=== PATIENT | female | born 1970 | race Two or more races ===

== ENCOUNTER 2018-03-04 15:27 | Emergency (ER) | payer OTHER ==
--- NOTE | 2018-03-04 15:34 | PDOC ---
Rapid Medical Evaluation Chief Complaint: Vaginal Bleeding Time Seen by Provider: 03/04/18 15:33 Medical Evaluation: Allergies Allergy/AdvReac Type Severity Reaction Status Date / Time No Known Allergies Allergy Verified 03/04/18 15:31 03/04/18 15:33 47 year old female with fibroids, migraines, RLS, and hypothyroidism presenting with dizziness, reports vaginal bleeding intermittently for 2.5 weeks (2 pads today). Was admitted here in 2014 with hemorrhagic shock requiring vasopressors secondary to bleeding fibroids. Alert, oriented, appears weak. Pale conjunctivae. RRR, S1/S2. Lungs CTAB. V/s unremarkable. EKG, CXR Labs including CBC, CMP, PT/INR, T&S To Main ED for further evaluation.
[2018-03-04 15:38] VITALS: TEMP 98.1; BMI 29.1
[2018-03-04 16:25] LABS: BASO % 1.1 % (0-2.0); EOS % 2.7 % (0-4.5); HEMATOCRIT 38.9 % (32.4-45.2); HEMOGLOBIN 12.6 GM/dL (10.7-15.3); LYMPH % 29.7 % (8-40); MCHC 32.4 g/dl (32.0-36.0); MEAN CELL VOLUME 83.3 fl (80-96); MEAN PLT VOLUME 9.6 fl (7.5-11.1); MONO % 5.4 % (3.8-10.2); NEUT % 61.1 % (42.8-82.8); PLATELET COUNT 341 K/MM3 (134-434); RBC 4.67 M/mm3 (3.60-5.2); RDW 16.6 % (11.6-15.6); WHITE BLOOD COUNT 8.1 K/mm3 (4.0-10.0)
[2018-03-04] MEDS ORDERED: SODIUM CHLORIDE 0.9% 1000 ML INFUS.BAG IV ONE (16:34)
--- NOTE | 2018-03-04 16:42 | PDOC ---
History of Present Illness - General Chief Complaint: Vaginal Bleeding Stated Complaint: DIZZINEESS, VAGINAL BLEEDING Time Seen by Provider: 03/04/18 15:33 History Source: Patient Exam Limitations: No Limitations - History of Present Illness Initial Comments: 03/04/18 16:35 The patient is a 47F with a PMH of uterine fibroids and hypothyroidism who presents to the ER with complaints of vaginal bleeding. The patient states that she began bleedinging interm Past History - Past Medical History Allergies/Adverse Reactions: Allergies Allergy/AdvReac Type Severity Reaction Status Date / Time No Known Allergies Allergy Verified 03/04/18 15:31 Home Medications: Ambulatory Orders Ferrous Sulfate 325 mg PO TID 05/22/15 Pramipexole Di-HCl [Mirapex] 0.5 mg PO BID 05/22/15 Simvastatin [Zocor -] 20 mg PO DAILY 05/22/15 EPINEPHrine (EPI-PEN 0.3MG) [Epipen 0.3MG -] 0.3 mg IM ASDIR 05/26/16 Levothyroxine [Synthroid -] 150 mcg PO DAILY 05/26/16 Loperamide HCl [Imodium -] 2 mg PO Q8H #21 capsule 05/26/16 Loperamide HCl [Imodium -] 2 mg PO Q8H PRN #21 capsule 05/26/16 Ondansetron [Zofran *Odt*] 8 mg SL BID PRN #30 od.tablet 05/26/16 Ondansetron [Zofran *Odt*] 8 mg SL TID PRN #30 od.tablet 05/26/16 Topiramate [Topamax] 50 mg PO BID 05/26/16 metroNIDAZOLE [Flagyl -] 500 mg PO DAILY 05/26/16 Anemia: Yes COPD: No Hypercholesterolemia: Yes Thyroid Disease: Yes (hypo) - Reproductive History (#): 5 Para: 4 Therapeutic (s) & number: No - Immunization History Immunization Up to Date: Yes - Suicide/Smoking/Psychosocial Hx Smoking History: Never smoked Have you smoked in the past 12 months: No Hx Alcohol Use: Yes (occasional) Drug/Substance Use Hx: No Substance Use Type: None *Physical Exam - Vital Signs Last Vital Signs Temp Pulse Resp BP Pulse Ox 98.1 F 74 18 132/84 100 03/04/18 15:32 03/04/18 15:32 03/04/18 15:32 03/04/18 15:32 03/04/18 15:32 Moderate Sedation - Procedure Monitoring Vital Signs: Vital Signs Temp Pulse Resp BP Pulse Ox 98.1 F 74 18 132/84 100 03/04/18 15:32 03/04/18 15:32 03/04/18 15:32 03/04/18 15:32 03/04/18 15:32 ED Treatment Course - LABORATORY CBC & Chemistry Diagram: 03/04/18 16:10 03/04/18 16:10 - ADDITIONAL ORDERS Additional order review: 03/04/18 16:10 RBC 4.67 MCV 83.3 MCHC 32.4 RDW 16.6 H D MPV 9.6 Neutrophils % 61.1 Lymphocytes % 29.7 Monocytes % 5.4 Eosinophils % 2.7 Basophils % 1.1 *DC/Admit/Observation/Transfer Diagnosis at time of Disposition: Fibroid (bleeding) (uterine) Qualifiers: Uterine leiomyoma location: unspecified location Qualified Code(s): D25.9 - Leiomyoma of uterus, unspecified - Discharge Dispostion Disposition: HOME Condition at time of disposition: Stable Decision to Admit order: No - Referrals Referrals: Judith Reyes [Primary Care Provider] - - Patient Instructions Printed Discharge Instructions: Uterine Fibroids Additional Instructions: Please follow up with your primary care physician in 2-3 days. Please follow up with your [employer] tomorrow or Sunday regarding your fibroids. Please return to the ER if you have any signs or symptoms of chest pain, shortness of breath, uncontrollable fever, chills, nausea, vomiting, numbness, tingling, or weakness in any part of your body, changes in vision, or slurred speech. Please return to the ER if symptoms persist, worsen, or new symptoms arise. - Post Discharge Activity
[2018-03-04 16:44] LABS: INR 0.92 (0.82-1.09); PROTHROMBIN TIME (PATIENT) 10.4 SEC (9.7-13.0)
[2018-03-04 17:34] VITALS: BP 116/83; PULSE 64
== END 2018-03-04 17:30 | disposition home or self-care (01) ==
LOC: JER 15:27
DX: D25.9 Leiomyoma of uterus, unspecified (principal); E03.9 Hypothyroidism, unspecified; E78.00 Pure hypercholesterolemia, unspecified; G43.909 Migraine, unspecified, not intractable, without status migrainosus; G25.81 Restless legs syndrome
CPT/HCPCS: 36415; 84703; 85025; 85610; 86850; 86900; 86901; 99282-25; J7030

== ENCOUNTER 2018-12-19 19:59 | Emergency (ER) | payer OTHER ==
[2018-12-19 20:36] VITALS: BMI 31.6
--- NOTE | 2018-12-19 20:37 | PDOC ---
Rapid Medical Evaluation Chief Complaint: Lightheaded Medical Evaluation: Allergies Allergy/AdvReac Type Severity Reaction Status Date / Time No Known Allergies Allergy Verified 03/04/18 15:31 12/19/18 20:32 I have performed a brief in-person evaluation of this patient. The patient presents with a chief complaint of: new onset HTN- today noted 4 readings of BP 150s /90s- her Normal BP 115/70 Pertinent physical exam findings: slow to respond, no neuro deficits I have ordered the following: CBC, CMP, PT/ INR, TsH, T3 The patient will proceed to the ED for further evaluation. 12/19/18 20:33 Discharge Disposition - Diagnosis HTN (hypertension) - Referrals - Patient Instructions - Post Discharge Activity
--- NOTE | 2018-12-19 21:35 | PDOC ---
History of Present Illness - General Chief Complaint: Lightheaded Stated Complaint: BP PROBLEM/BLOOD SUGAR PROBLEM Time Seen by Provider: 12/19/18 21:03 History Source: Patient, Old Records Exam Limitations: No Limitations - History of Present Illness Initial Comments: 12/19/18 21:24 HISTORY OF PRESENT ILLNESS: 48-year-old woman past medical history of migraines , hypothyroidism, diabetes, restless leg syndrome presents emergency department for evaluation of dizziness starting today. Patient reports the dizziness is associated with movement and worsens with change of position. 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 Patient also noted blood pressure to be 159/98 while at work. She denies chest pain, shortness of breath, abdominal pain, nausea, vomiting. Patient does report having 2 episodes of diarrhea on 12/16 and 12/17 but has not had diarrhea since. No recent travel or sick contacts. PAST MEDICAL HISTORY: see HPI SURGICAL HISTORY: Denies ALLERGIES: No known drug allergies REVIEW OF SYSTEMS General/Constitutional: Denies fever or chills. Denies weakness, weight change. HEENT: Denies change in vision. Denies ear pain or discharge. Denies sore throat. Cardiovascular: Denies chest pain or shortness of breath. Respiratory: Denies cough, wheezing, or hemoptysis. Gastrointestinal: Denies nausea, vomiting, diarrhea or constipation. Denies rectal bleeding. Genitourinary: Denies dysuria, frequency, or change in urination. Musculoskeletal: Denies joint or muscle swelling or pain. Denies neck or back pain. Skin and breasts: Denies rash or easy bruising. Neurologic: see HPI Psychiatric: Denies depression or anxiety. Endocrine: Denies increased thirst. Denies abnormal weight change. Hematologic/Lymphatic: Denies anemia, easy bleeding, or history of blood clots. Allergic/Immunologic: Denies hives or skin allergy. Denies latex allergy. PHYSICAL EXAM General Appearance: Well-appearing, appropriately dressed. No apparent distress , no intoxication. HEENT: EOMI, PERRLA, normal ENT inspection, normal voice, TMs normal, pharynx normal. No conjunctival pallor. No photophobia, scleral icterus. Neck: Supple. Trachea midline. No tenderness, rigidity, carotid bruit, stridor , lymphadenopathy, or thyromegaly. Respiratory/Chest: Lungs CTAB. No shortness of breath, chest tenderness, respiratory distress, accessory muscle use. No crackles, rales, rhonchi, stridor , wheezing, dullness Cardiovascular: RRR. S1, S2. No JVD, murmur, bradycardia, tachycardia. Vascular Pulses: Dorsalis-Pedis (R): 2+, Dorsalis-Pedis (L): 2+ Gastrointestinal/Abdominal: Normal bowel sounds. Abdomen soft, non-distended. No tenderness or rebound tenderness. No organomegaly, pulsatile mass, guarding, hernia, hepatomegaly, splenomegaly. Lymphatic: No adenopathy, tenderness. Musculoskeletal/Extremities: Normal inspection. FROM of all extremities, normal capillary refill. Pelvis Stable. No CVA tenderness. No tenderness to extremities, pedal edema, swelling, erythema or deformity. Integumentary: Appropriate color, dry, warm. No cyanosis, erythema, jaundice or rash Neurologic: helmet hat puncher II-XII intact. Fully oriented, alert. Appropriate mood/affect. Motor strength 5/5. No appreciable EOM palsy, facial droop or sensory deficit. Normal finger to nose testing. Gait steady. Past History - Past Medical History Allergies/Adverse Reactions: Allergies Allergy/AdvReac Type Severity Reaction Status Date / Time No Known Allergies Allergy Verified 12/19/18 20:36 Home Medications: Ambulatory Orders Ferrous Sulfate 325 mg PO TID 05/22/15 Pramipexole Di-HCl [Mirapex] 0.5 mg PO BID 05/22/15 Simvastatin [Zocor -] 20 mg PO DAILY 05/22/15 Levothyroxine [Synthroid -] 150 mcg PO DAILY 05/26/16 Topiramate [Topamax] 50 mg PO BID 05/26/16 Meclizine HCl [Antivert -] 25 mg PO QID #28 tablet 12/20/18 Anemia: Yes COPD: No Hypercholesterolemia: Yes Thyroid Disease: Yes (hypo) - Reproductive History (#): 5 Para: 4 Therapeutic (s) & number: No - Immunization History Immunization Up to Date: Yes - Suicide/Smoking/Psychosocial Hx Smoking History: Never smoked Have you smoked in the past 12 months: No Information on smoking cessation initiated: No Hx Alcohol Use: No Drug/Substance Use Hx: No Substance Use Type: None *Physical Exam - Vital Signs Last Vital Signs Temp Pulse Resp BP Pulse Ox 97.3 F L 74 16 156/95 100 12/19/18 20:33 12/19/18 20:33 12/19/18 20:33 12/19/18 20:33 12/19/18 20:33 Moderate Sedation - Procedure Monitoring Vital Signs: Procedure Monitoring Vital Signs Temperature 97.3 F L 12/19/18 20:33 Pulse Rate 74 12/19/18 20:33 Respiratory Rate 16 12/19/18 20:33 Blood Pressure 156/95 12/19/18 20:33 O2 Sat by Pulse Oximetry (%) 100 12/19/18 20:33 Heart Score/ECG Review - History History: Slightly suspicious - Electrocardiogram EKG: Normal - Age Age: 45-65 - Risk Factors Risk Factors Heart Score: Yes Hx Diabetes Based on the list above the patient has:: 1-2 risk factors - Troponin Troponin: </= normal limit - Score Heart Score - Total: 2 - ECG Intrepretation Rhythm: Regular Rhythm - [place]: Normal - ECG Impressions Normal ECG: Yes ED Treatment Course - LABORATORY CBC & Chemistry Diagram: 12/19/18 21:31 12/19/18 21:31 - RADIOLOGY Radiology Studies Ordered: Category Date Time Status HEAD CT WITHOUT CONTRAST [CT] Stat CT Scan 12/19/18 21:22 Ordered Medical Decision Making - Medical Decision Making 12/19/18 21:36 A/P: 48-year-old woman with 1 day of dizziness Differential diagnoses include vertigo, Mnire's, malignancy, ACS, electrolyte abnormalities, infection, tyroid dysfunction, hypoglycemia Labs Urine CTH EKG 12/20/18 03:05 Laboratory testing is notable for BUN of 19. TSH 5.18 which is consistent with patient's diagnosis of hypothyroidism. EKG: Sinus rhythm with rate of 62. Normal intervals present. No ischemic changes noted. CT of the head as read by Dr. Ibarra: No which cranial pathology noted. Patient symptoms have resolved after receiving meclizine. This is likely BPPV. I will discharge patient home with prescription for meclizine and to follow-up with her primary doctor as needed. *DC/Admit/Observation/Transfer Diagnosis at time of Disposition: HTN (hypertension) Qualifiers: Hypertension type: essential hypertension Qualified Code(s): I10 - Essential ( primary) hypertension BPPV (benign paroxysmal positional vertigo) Qualifiers: Laterality: unspecified laterality Qualified Code(s): H81.10 - Benign paroxysmal vertigo, unspecified ear - Discharge Dispostion Disposition: HOME Condition at time of disposition: Fair Decision to Admit order: No - Prescriptions Prescriptions: Meclizine HCl [Antivert -] 25 mg PO QID #28 tablet - Referrals Referrals: Yonis Noonan [Primary Care Provider] - - Patient Instructions Additional Instructions: Take meclizine 25 mg orally 4 times a day as needed. Keep well-hydrated. Eat a well-balanced diet. Follow-up to primary doctor for reevaluation within the next 7 days. Return to emergency department for any new or worsening symptoms. Thank you very much for choosing us to provide your emergent health care needs. - Post Discharge Activity
[2018-12-19 22:12] LABS: URINE APPEARANCE CLOUDY; URINE BILIRUBIN NEGATIVE (<2.0 mg/dL); URINE COLOR YELLOW; URINE GLUCOSE (UA) NEGATIVE (NEGATIVE); URINE KETONE NEGATIVE (NEGATIVE); URINE LEUK ESTERASE NEGATIVE (NEGATIVE); URINE NITRITE NEGATIVE (NEGATIVE); URINE PROTEIN 2+ (NEGATIVE); URINE UROBILINOGEN NEGATIVE mg/dL (0.2-1.0)
[2018-12-19 22:13] LABS: HCG,QUALITATIVE URINE Negative
[2018-12-19 22:15] LABS: EPI CELLS RARE /HPF (FEW); URINE MUCUS RARE
[2018-12-19 22:34] LABS: BASO % 0.6 % (0-2.0); EOS % 4.2 % (0-4.5); HEMATOCRIT 39.9 % (32.4-45.2); HEMOGLOBIN 13.2 GM/dL (10.7-15.3); LYMPH % 29.5 % (8-40); MCH 27.2 pg (25.7-33.7); MEAN CELL VOLUME 82.3 fl (80-96); MEAN PLT VOLUME 9.7 fl (7.5-11.1); MONO % 5.7 % (3.8-10.2); PLATELET COUNT 243 K/MM3 (134-434); RBC 4.85 M/mm3 (3.60-5.2); WHITE BLOOD COUNT 9.5 K/mm3 (4.0-10.0)
[2018-12-20] MEDS ORDERED: MECLIZINE HCL 25 MG TABLET (FP) PO ONE
[2018-12-20] MEDS ORDERED: MECLIZINE HCL 25 MG TABLET (FP) ONE (00:45)
[2018-12-20 02:34] LABS: ALBUMIN 3.8 g/dl (3.4-5.0); ALK PHOS 56 U/L (45-117); ANION GAP 7 MMOL/L (8-16); BILIRUBIN,TOTAL 0.3 mg/dL (0.2-1); BLOOD UREA NITROGEN 19 mg/dL (7-18); CALCIUM 8.9 mg/dL (8.5-10.1); CHLORIDE 107 mmol/L (98-107); CO2 26 mmol/L (21-32); GLUCOSE,RANDOM 77 mg/dL (74-106); SGOT/AST 11 U/L (15-37); SGPT/ALT 19 U/L (13-61); SODIUM 140 mmol/L (136-145); TOT PROT 7.3 g/dl (6.4-8.2)
[2018-12-20 03:56] VITALS: BP 136/78; PULSE 88; TEMP 98.5
--- NOTE | 2018-12-20 14:18 | EKG ---
Test Reason : Blood Pressure : / mmHG Vent. Rate : 062 BPM Atrial Rate : 062 BPM P-R Int : 156 ms QRS Dur : 086 ms QT Int : 430 ms P-R-T Axes : 057 010 051 degrees QTc Int : 436 ms NORMAL SINUS RHYTHM NONSPECIFIC T WAVE ABNORMALITY ABNORMAL ECG WHEN COMPARED WITH ECG OF 22-MAY-2015 14:07, VENT. RATE HAS DECREASED BY 35 BPM Confirmed by DALLAS BLAIR MD ([id number]) on 12/20/2018 2:17:49 PM Referred By: Confirmed By:DALLAS BLAIR MD
== END 2018-12-20 03:57 | disposition home or self-care (01) ==
LOC: JER 19:59
DX: I10 Essential (primary) hypertension (principal); H81.10 Benign paroxysmal vertigo, unspecified ear; E11.9 Type 2 diabetes mellitus without complications; E03.9 Hypothyroidism, unspecified; D64.9 Anemia, unspecified
CPT/HCPCS: 36415; 70450-TC; 80053; 81003; 81015; 82550; 84443; 84484; 84703; 85025; 87086; 93005; 93010; 99282-25

== ENCOUNTER 2019-10-21 05:47 | Emergency (ER) | payer OTHER ==
--- NOTE | 2019-10-21 06:00 | PDOC ---
History of Present Illness - History of Present Illness Initial Comments: 10/21/19 06:00 49 yo F PMH migraines, hypothyroidism, diabetes, restless leg syndrome, presenting with headache. States that she has had a cough for the past 3 weeks, with all of her grandchildren sick at home, not responsive to azithromycin prescribed by her PCP. For the past week, she has had her normal L sided migraines every day, not responding to her topiramate. Here today because she could not sleep due to the headache. Denies CP, SOB, abd pain, fevers/chills, N/V. Endorses L sided migraine without photophobia or phonophobia, 10/10, nonproductive cough, and sinus pressure. Neurologist is Dr. Gagnon. <Ander Guy - Last Filed: 10/21/19 06:23> <Vani Sanders - Last Filed: 10/23/19 01:47> - General Stated Complaint: HEADACHE, COUGH Time Seen by Provider: 10/21/19 05:59 Past History - Past Medical History Anemia: Yes COPD: No Diabetes: Yes Hypercholesterolemia: Yes Thyroid Disease: Yes (hypo) - Reproductive History (#): 5 Para: 4 Therapeutic (s) & number: No - Immunization History Immunization Up to Date: Yes - Psycho Social/Smoking Cessation Hx Smoking History: Never smoked Have you smoked in the past 12 months: No Hx Alcohol Use: No Drug/Substance Use Hx: No Substance Use Type: None <Ander Guy - Last Filed: 10/21/19 06:23> <Vani Sanders - Last Filed: 10/23/19 01:47> - Past Medical History Allergies/Adverse Reactions: Allergies Allergy/AdvReac Type Severity Reaction Status Date / Time No Known Allergies Allergy Verified 10/21/19 06:15 Home Medications: Ambulatory Orders Pramipexole Di-HCl [Mirapex] 0.5 mg PO BID 05/22/15 Simvastatin [Zocor -] 40 mg PO DAILY 05/22/15 Levothyroxine [Synthroid -] 150 mcg PO DAILY 05/26/16 Topiramate [Topamax] 50 mg PO BID 05/26/16 Amlodipine Besylate [Norvasc -] 10 mg PO DAILY 10/21/19 Montelukast Na [Singulair -] 10 mg PO HS 10/21/19 Review of Systems - Review of Systems Comments:: 10/21/19 06:20 GENERAL/CONSTITUTIONAL: No fever or chills. No weakness. HEAD, EYES, EARS, NOSE AND THROAT: No change in vision. No ear pain or discharge. No sore throat. Sinus pressure. CARDIOVASCULAR: No chest pain or shortness of breath. RESPIRATORY: No cough, wheezing, or hemoptysis. GASTROINTESTINAL: No nausea, vomiting, diarrhea or constipation. GENITOURINARY: No dysuria, frequency, or change in urination. MUSCULOSKELETAL: No joint or muscle swelling or pain. No neck or back pain. SKIN: No rash NEUROLOGIC: L sided migraine. No vertigo, loss of consciousness, or change in strength/sensation. ENDOCRINE: No increased thirst. No abnormal weight change. HEMATOLOGIC/LYMPHATIC: No anemia, easy bleeding, or history of blood clots. ALLERGIC/IMMUNOLOGIC: No hives or skin allergy <Ander Guy - Last Filed: 10/21/19 06:23> *Physical Exam - Physical Exam 10/21/19 06:23 Gen: well-developed, well-nourished, in distress Neuro: AAOX4, CN II-XII intact, FTN intact, EOMI, PERRLA, 5/5 strength, SILT HEENT: atraumatic, normocephalic, dry mucous membranes Neck: trachea midline, supple CV: regular rate, regular rhythm, no murmurs, rubs, or gallops Pulm: CTA b/l, no wheezing Abd: soft, non-distended, non-tender MSK: full ROM, intact pulses Extr: no edema, no deformities Skin: warm, dry <Ander Guy - Last Filed: 10/21/19 06:23> - Vital Signs Last Vital Signs Temp Pulse Resp BP Pulse Ox 98.5 F 63 17 108/77 99 10/21/19 10:54 10/21/19 10:54 10/21/19 10:54 10/21/19 10:54 10/21/19 10:54 <Vani Sanders - Last Filed: 10/23/19 01:47> ED Treatment Course - Medications Given in the ED: ED Medications Discontinued Medications Generic Name Dose Route Start Last Admin Trade Name Zoila PRN Reason Stop Dose Admin Acetaminophen 1,000 mg 10/21/19 06:08 10/21/19 06:37 Ofirmev Injection - IVPB 10/21/19 06:09 1,000 mg ONCE ONE Administration Codeine Sulfate 30 mg 10/21/19 06:38 10/21/19 06:51 Codeine Sulfate - PO 10/21/19 06:39 30 mg ONCE ONE Administration Metoclopramide HCl 10 mg 10/21/19 06:14 10/21/19 06:38 Reglan Injection - IVPB 10/21/19 06:15 10 mg ONCE ONE Administration Sodium Chloride 1,000 ml 10/21/19 06:14 10/21/19 06:37 Normal Saline - IV 10/21/19 06:15 1,000 ml ONCE ONE Administration Sodium Chloride 3 ml 10/21/19 06:38 10/21/19 06:51 Normal Saline For Inhalation - IH 10/21/19 06:39 3 ml ONCE ONE Administration <Vani Sanders - Last Filed: 10/23/19 01:47> Medical Decision Making - Medical Decision Making 10/21/19 06:22 Concern for migraine v sinus headache. - CXR, EKG - Ofirmev, 1L NS, Reglan 10mg <Ander Guy - Last Filed: 10/21/19 06:23> Discharge - Discharge Information Problems reviewed: Yes <Ander Guy - Last Filed: 10/21/19 06:23> <Vani Sanders - Last Filed: 10/23/19 01:47> - Discharge Information Clinical Impression/Diagnosis: Hx of migraines, Cough Condition: Improved Disposition: HOME - Follow up/Referral Referrals: Yonis Noonan [Primary Care Provider] - Jovany Landers MD [Staff Physician] - - Patient Discharge Instructions Patient Printed Discharge Instructions: DI for Migraine Additional Instructions: You have been seen in the Emergency Department for your migraine and cough. Your chest X-ray and CT scan of your sinus show no evidence of an acute emergent condition such as a sinus infection or pneumonia. Your migraine improved with medications. Take your migraine medications as prescribed and follow up with your neurologist within 1 week. Also follow up with your primary care doctor this week. Your sinus CT scan does show some non-emergent findings which we have discussed. Follow up with ENT (Ear, nose, throat) within 1-2 weeks. We have given you a referral. Return to the Emergency Department immediately for any new or concerning symptoms including numbness or tingling, vision changes, weakness, difficulty speaking, or vomiting. - Post Discharge Activity Work/Back to School Note: Back to Work
[2019-10-21] MEDS ORDERED: ACETAMINOPHEN 1000 MG/100 ML VIAL (NON FORMULARY) IVPB ONE (06:08)
[2019-10-21] MEDS ORDERED: METOCLOPRAMIDE HCL INJECTION 10 MG/2 ML VIAL IVPB ONE (06:14)
[2019-10-21] MEDS ORDERED: SODIUM CHLORIDE 0.9% 500 ML INFUS.BAG IV ONE (06:14)
[2019-10-21 06:15] VITALS: BMI 32.9
[2019-10-21] MEDS ORDERED: METOCLOPRAMIDE HCL INJECTION 10 MG/2 ML VIAL ONE (06:20)
[2019-10-21] MEDS ORDERED: ACETAMINOPHEN INJECTION 100 ML IVPB ONE (06:20)
--- NOTE | 2019-10-21 06:30 | PDOC ---
Attending Attestation - Resident Resident Name: Ander Guy - ED Attending Attestation I have performed the following: The case was reviewed & discussed with the resident, I agree w/resident's findings & plan - HPI HPI: 10/23/19 01:46 see resident hpi - Physicial Exam PE: 10/23/19 01:47 see resident exam - Medical Decision Making 10/23/19 01:47 49-year-old female with headache Currently awaiting imaging and reevaluation We will sign out to dayshift
[2019-10-21] MEDS ORDERED: CODEINE SO4 30 MG TABLET PO ONE (06:38)
[2019-10-21] MEDS ORDERED: SODIUM CHLORIDE FOR INHALATION 3 ML VIAL.NEB IH ONE (06:38)
--- NOTE | 2019-10-21 07:14 | PDOC ---
*Physical Exam - Vital Signs Last Vital Signs Temp Pulse Resp BP Pulse Ox 98.1 F 66 18 155/93 100 10/21/19 06:06 10/21/19 06:06 10/21/19 06:06 10/21/19 06:06 10/21/19 06:06 ED Treatment Course - Medications Given in the ED: ED Medications Discontinued Medications Generic Name Dose Route Start Last Admin Trade Name Zoila PRN Reason Stop Dose Admin Acetaminophen 1,000 mg 10/21/19 06:08 10/21/19 06:37 Ofirmev Injection - IVPB 10/21/19 06:09 1,000 mg ONCE ONE Administration Codeine Sulfate 30 mg 10/21/19 06:38 10/21/19 06:51 Codeine Sulfate - PO 10/21/19 06:39 30 mg ONCE ONE Administration Metoclopramide HCl 10 mg 10/21/19 06:14 10/21/19 06:38 Reglan Injection - IVPB 10/21/19 06:15 10 mg ONCE ONE Administration Sodium Chloride 1,000 ml 10/21/19 06:14 10/21/19 06:37 Normal Saline - IV 10/21/19 06:15 1,000 ml ONCE ONE Administration Sodium Chloride 3 ml 10/21/19 06:38 10/21/19 06:51 Normal Saline For Inhalation - IH 10/21/19 06:39 3 ml ONCE ONE Administration Medical Decision Making - Medical Decision Making 10/21/19 07:14 Received sign out from Dr Worthington. Pt seen and assessed at bedside. 49yo F hx migraines, hypothyroidism, DM, and restless leg syndrome presenting with daily L-sided migraines x1wk not responding to topiramate, in setting of [id number] unresponsive to azithromycin. No red flags or changes to usual migraine concerning for ICH, stroke, meningitis, or other emergent pathology. Most likely migraine vs sinus headache. Also obtain CXR to r/o PNA. Neurologist Dr Gagnon. -EKG reviewed: NSR, 61bpm, normal intervals, QTc 450ms, normal axis, no e/o acute ischemia, no significant changes compared to 12/19/18 -CXR -CT sinus -Pain management: running ofirmev, IVF, reglan -Dispo: pending w/u and reassessment 10/21/19 09:15 CXR reviewed: no acute chest pathology 10/21/19 10:07 Pt reassessed. States headache resolved s/p meds, starting to return but minimal. CT sinus reviewed - no concerning acute pathology or sinusitis, f/u ENT Discussed results with pt. Will dc home with PCP, Neuro, and ENT f/u. Return precautions given. Pt understands all dc instructions and all questions were answered. Discharge - Discharge Information Problems reviewed: Yes Clinical Impression/Diagnosis: Hx of migraines, Cough Condition: Improved Disposition: HOME - Admission No - Follow up/Referral Referrals: Yonis Noonan [Primary Care Provider] - Jovany Landers MD [Staff Physician] - - Patient Discharge Instructions Patient Printed Discharge Instructions: DI for Migraine Additional Instructions: You have been seen in the Emergency Department for your migraine and cough. Your chest X-ray and CT scan of your sinus show no evidence of an acute emergent condition such as a sinus infection or pneumonia. Your migraine improved with medications. Take your migraine medications as prescribed and follow up with your neurologist within 1 week. Also follow up with your primary care doctor this week. Your sinus CT scan does show some non-emergent findings which we have discussed. Follow up with ENT (Ear, nose, throat) within 1-2 weeks. We have given you a referral. Return to the Emergency Department immediately for any new or concerning symptoms including numbness or tingling, vision changes, weakness, difficulty speaking, or vomiting. - Post Discharge Activity Work/Back to School Note: Back to Work
--- NOTE | 2019-10-21 09:28 | EKG ---
Test Reason : Blood Pressure : / mmHG Vent. Rate : 061 BPM Atrial Rate : 061 BPM P-R Int : 152 ms QRS Dur : 078 ms QT Int : 448 ms P-R-T Axes : 063 010 013 degrees QTc Int : 450 ms NORMAL SINUS RHYTHM NONSPECIFIC T WAVE ABNORMALITY ABNORMAL ECG WHEN COMPARED WITH ECG OF 19-DEC-2018 23:52, NONSPECIFIC T WAVE ABNORMALITY NOW EVIDENT IN INFERIOR LEADS Confirmed by Danny Ewing MD ([id number]) on 10/21/2019 9:28:12 AM Referred By: Confirmed By:Danny Ewing MD
[2019-10-21 10:55] VITALS: BP 108/77; PULSE 63; TEMP 98.5
== END 2019-10-21 10:55 | disposition home or self-care (01) ==
LOC: JER 05:47
PROC: 3E0F7GC Introduction of Other Therapeutic Substance into Respiratory Tract, Via Natural or Artificial Opening (ICD-10-PCS; principal; 2019-10-21)
PROC: 3E033GC Introduction of Other Therapeutic Substance into Peripheral Vein, Percutaneous Approach (ICD-10-PCS; 2019-10-21)
PROC: 3E033NZ Introduction of Analgesics, Hypnotics, Sedatives into Peripheral Vein, Percutaneous Approach (ICD-10-PCS; 2019-10-21)
DX: G43.909 Migraine, unspecified, not intractable, without status migrainosus (principal); E11.9 Type 2 diabetes mellitus without complications; E03.9 Hypothyroidism, unspecified; D64.9 Anemia, unspecified; E78.00 Pure hypercholesterolemia, unspecified
CPT/HCPCS: 70486-TC; 71045-TC-FY; 93005; 93010; 94640; 96374; 96375; 99283-25; J0131

== ENCOUNTER 2019-11-18 17:30 | Emergency (ER) | payer OTHER ==
[2019-11-18 17:52] VITALS: BP 113/70; PULSE 97; TEMP 99.5; BMI 32.4
--- NOTE | 2019-11-18 17:59 | PDOC ---
Rapid Medical Evaluation Medical Evaluation: Allergies Allergy/AdvReac Type Severity Reaction Status Date / Time No Known Allergies Allergy Verified 11/18/19 17:48 Vital Signs Temp Pulse Resp BP Pulse Ox 99.5 F 97 H 18 113/70 98 11/18/19 17:49 11/18/19 17:49 11/18/19 17:49 11/18/19 17:49 11/18/19 17:49 11/18/19 17:51 Pt c/o:myalgia, ear pain, cough, sore throat Pt on brief exam: vss, lcta pt ordered for: none Pt to proceed to the ED Discharge Disposition - Diagnosis Cough, Influenza - Discharge Dispostion Disposition: HOME Condition at time of disposition: Stable - Prescriptions Prescriptions: Guaifenesin AC [Robitussin AC] 10 ml PO Q8H #150 ml MDD 3 Ibuprofen 600 mg PO Q6H #30 tablet Oseltamivir Phosphate [Tamiflu] 75 mg PO BID #10 capsule predniSONE [Deltasone -] 40 mg PO DAILY #8 tablet - Referrals Referrals: Yonis Noonan [Primary Care Provider] - - Patient Instructions Printed Discharge Instructions: DI for Influenza -- Adult Additional Instructions: You have the flu. This is a virus that will get better on its own in approximately 7-10 days. You will most likely have a fever for 7-10 days because of the flu. This is to be expected. Drink plenty of fluids to prevent dehydration and get plenty of rest. Warm tea and cough drops may help your symptoms as well. Take the tamiflu twice a day for 5 days to help reduce the symptoms of the flu. This medication will not cure the flu. Take Motrin as directed for pain and fever. Take all other medications as prescribed. Follow up with your primary care doctor this week Return to the ED for difficulty breathing, shortness of breath, weakness, or if you have any other changes in your symptoms. - Post Discharge Activity Work/School Note: Back to Work
--- NOTE | 2019-11-18 19:08 | PDOC ---
History of Present Illness - General Chief Complaint: Cold Symptoms Stated Complaint: FEVER Time Seen by Provider: 11/18/19 17:59 History Source: Patient Exam Limitations: No Limitations Past History - Travel Traveled outside of the country in the last 30 days: No Close contact w/someone who was outside of country & ill: No - Past Medical History Allergies/Adverse Reactions: Allergies Allergy/AdvReac Type Severity Reaction Status Date / Time No Known Allergies Allergy Verified 11/18/19 17:48 Home Medications: Ambulatory Orders Pramipexole Di-HCl [Mirapex] 0.5 mg PO BID 05/22/15 Simvastatin [Zocor -] 40 mg PO DAILY 05/22/15 Levothyroxine [Synthroid -] 150 mcg PO DAILY 05/26/16 Topiramate [Topamax] 50 mg PO BID 05/26/16 Amlodipine Besylate [Norvasc -] 10 mg PO DAILY 10/21/19 Montelukast Na [Singulair -] 10 mg PO HS 10/21/19 Guaifenesin AC [Robitussin AC] 10 ml PO Q8H #150 ml MDD 3 11/18/19 Ibuprofen 600 mg PO Q6H #30 tablet 11/18/19 Oseltamivir Phosphate [Tamiflu] 75 mg PO BID #10 capsule 11/18/19 predniSONE [Deltasone -] 40 mg PO DAILY #8 tablet 11/18/19 Anemia: Yes COPD: No Diabetes: Yes Hypercholesterolemia: Yes Thyroid Disease: Yes (hypo) - Reproductive History (#): 5 Para: 4 Therapeutic (s) & number: No - Immunization History Immunization Up to Date: Yes - Psycho Social/Smoking Cessation Hx Smoking History: Never smoked Have you smoked in the past 12 months: No Hx Alcohol Use: No Drug/Substance Use Hx: No Substance Use Type: None Review of Systems - Review of Systems Able to Perform ROS?: Yes Comments:: 11/18/19 19:44 CONSTITUTIONAL: Present: Fever, chills, body aches Absent: diaphoresis, generalized weakness, malaise, loss of appetite HEENT: Present: rhinorrhea, nasal congestion, throat pain. Absent: difficulty swallowing, mouth swelling, ear pain, eye pain, visual Changes CARDIOVASCULAR: Absent: chest pain, loss of consciousness, palpitations, irregular heart rate, peripheral edema RESPIRATORY: Present: Cough Absent: shortness of breath, dyspnea with exertion, orthopnea, wheezing, stridor, hemoptysis GASTROINTESTINAL: Absent: abdominal pain, abdominal distension, nausea, vomiting, diarrhea, constipation, melena, hematochezia SKIN: Absent: rash, itching, pallor NEUROLOGIC: Present: headache Absent: focal weakness or paresthesias, dizziness, unsteady gait, seizure, mental status changes, bladder or bowel incontinence Is the patient limited [place] proficient: No *Physical Exam - Vital Signs Last Vital Signs Temp Pulse Resp BP Pulse Ox 99.5 F 97 H 18 113/70 98 11/18/19 17:49 11/18/19 17:49 11/18/19 17:49 11/18/19 17:49 11/18/19 17:49 - Physical Exam 11/20/19 17:45 GENERAL: Well developed, well nourished. Awake and alert. No acute distress. HEENT: Normocephalic, atraumatic. PERRLA, EOMI. No conjunctival pallor. Sclera are non- icteric. Moist mucous membranes. Oropharynx is clear. NECK: Supple. Full ROM. No lymphadenopathy. CARDIOVASCULAR: Regular rate and rhythm. No murmurs, rubs, or gallops. Distal pulses are 2+ and symmetric. PULMONARY: No evidence of respiratory distress. Lungs clear to auscultation bilaterally. No wheezing, rales or rhonchi. ABDOMINAL: Soft. Non-tender. Non-distended. No rebound or guarding. No organomegaly. Normoactive bowel sounds. MUSCULOSKELETAL Normal range of motion at all joints. No bony deformities or tenderness. No CVA tenderness. EXTREMITIES: No cyanosis. No clubbing. No edema. No calf tenderness. SKIN: Warm and dry. Normal capillary refill. No rashes. No jaundice. NEUROLOGICAL: Alert, awake, appropriate. Cranial nerves 2-12 intact. No deficits to light touch and temperature in face, upper extremities and lower extremities. No motor deficits in the in face, upper extremities and lower extremities. Normoreflexic in the upper and lower extremities. Normal speech. Toes are down-going bilaterally. Gait is normal without ataxia. PSYCHIATRIC: Cooperative. Good eye contact. Appropriate mood and affect. Medical Decision Making - Medical Decision Making 11/18/19 19:47 The patient is a 49-year-old female past medical of hypertension, hyperlipidemia, presents to the ER with 2 days of cough, body aches, fevers and headache. She was seen by her primary care today and had normal blood work. She states she was not told if she had the flu or not. She is taking Tylenol at home with some relief of her symptoms. She states her cough is productive with green/yellow mucus. A/P: Flulike symptoms On exam lungs are clear to auscultation bilaterally without wheezes rales or rhonchi. Throat and ears are unremarkable. Patient feels warm to the touch. Likely that she is febrile. Motrin given in the ER. Patient most likely has the flu. Will start the patient on Tamiflu and give Robitussin-AC for the cough. 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 I discussed the physical exam findings, ancillary test results and final diagnoses with the patient. I answered all of the patient's questions. The patient was satisfied with the care received and felt comfortable with the discharge plan and treatment plan. The Patient agrees to follow up with the primary care physician/specialist within 24-72 hours. Return precautions were given. Discharge - Discharge Information Problems reviewed: Yes Clinical Impression/Diagnosis: Cough, Influenza Condition: Stable Disposition: HOME - Admission No - Additional Discharge Information Prescriptions: Guaifenesin AC [Robitussin AC] 10 ml PO Q8H #150 ml MDD 3 Ibuprofen 600 mg PO Q6H #30 tablet Oseltamivir Phosphate [Tamiflu] 75 mg PO BID #10 capsule predniSONE [Deltasone -] 40 mg PO DAILY #8 tablet - Follow up/Referral Referrals: Yonis Noonan [Primary Care Provider] - - Patient Discharge Instructions Patient Printed Discharge Instructions: DI for Influenza -- Adult Additional Instructions: You have the flu. This is a virus that will get better on its own in approximately 7-10 days. You will most likely have a fever for 7-10 days because of the flu. This is to be expected. Drink plenty of fluids to prevent dehydration and get plenty of rest. Warm tea and cough drops may help your symptoms as well. Take the tamiflu twice a day for 5 days to help reduce the symptoms of the flu. This medication will not cure the flu. Take Motrin as directed for pain and fever. Take all other medications as prescribed. Follow up with your primary care doctor this week Return to the ED for difficulty breathing, shortness of breath, weakness, or if you have any other changes in your symptoms. - Post Discharge Activity Work/Back to School Note: Back to Work
[2019-11-18] MEDS ORDERED: DEXAMETHASONE LIQUID 0.5 MG/5 ML PO ONE (19:20)
[2019-11-18] MEDS ORDERED: DEXAMETHASONE SOD PHOSPHATE 10 MG/1 ML VIAL ONE (19:34)
== END 2019-11-18 19:45 | disposition home or self-care (01) ==
LOC: JERFT 17:30
DX: J11.1 Influenza due to unidentified influenza virus with other respiratory manifestations (principal); E11.9 Type 2 diabetes mellitus without complications; E78.00 Pure hypercholesterolemia, unspecified; E03.9 Hypothyroidism, unspecified; Z86.2 Personal history of diseases of the blood and blood-forming organs and certain disorders involving the immune mechanism
CPT/HCPCS: 99281-25

== ENCOUNTER 2020-06-08 19:36 | Inpatient (IN) | payer OTHER ==
--- NOTE | 2020-06-08 20:28 | PDOC ---
Rapid Medical Evaluation Time Seen by Provider: 06/08/20 20:27 Medical Evaluation: Allergies Allergy/AdvReac Type Severity Reaction Status Date / Time No Known Allergies Allergy Verified 11/18/19 17:48 06/08/20 20:27 HPI: 50 year old female lower abdominal pain and vomunious episodes of diarrhea x 2 days 1x/hr. Denies N/V PE: TTP throughout abdomen CTA RRR A/P: Labs UA Imaging differed to provider Pt to precede to ED for further evaluation and treatment.
[2020-06-08] MEDS ORDERED: SODIUM CHLORIDE 1,000 ML IV STA (20:30)
[2020-06-08 22:21] LABS: BASO % 1.1 % (0-2.0); EOS % 2.1 % (0-4.5); HEMATOCRIT 40.7 % (32.4-45.2); HEMOGLOBIN 13.6 GM/dL (10.7-15.3); LYMPH % 14.8 % (8-40); MCH 29.5 pg (25.7-33.7); MCHC 33.4 g/dl (32.0-36.0); MEAN CELL VOLUME 88.5 fl (80-96); MEAN PLT VOLUME 10.3 fl (7.5-11.1); MONO % 6.4 % (3.8-10.2); NEUT % 75.6 % (42.8-82.8); PLATELET COUNT 225 K/MM3 (134-434); WHITE BLOOD COUNT 9.9 K/mm3 (4.0-10.0)
[2020-06-08] MEDS ORDERED: ACETAMINOPHEN 1000 MG/100 ML VIAL (NON FORMULARY) IVPB ONE (22:22)
[2020-06-08] MEDS ORDERED: FAMOTIDINE 20 MG/50 ML IVPB 20 MG/50 ML MG IVPB ONE ×2 (22:22→23:44)
[2020-06-08 22:31] LABS: INR 0.92 (0.83-1.09); PROTHROMBIN TIME (PATIENT) 10.8 SEC (9.7-13.0)
[2020-06-08] MEDS ORDERED: ACETAMINOPHEN INJECTION 100 ML IVPB ONE ×2 (22:36→23:43)
[2020-06-08 22:51] LABS: ALBUMIN 3.5 g/dl (3.4-5.0); BILIRUBIN,TOTAL 0.3 mg/dL (0.2-1); BLOOD UREA NITROGEN 20.6 mg/dL (7-18); CALCIUM 8.6 mg/dL (8.5-10.1); CREATININE 1.1 mg/dL (0.55-1.3); TOT PROT 7.5 g/dl (6.4-8.2)
--- NOTE | 2020-06-08 23:19 | PDOC ---
Documentation entered by Kendra Shay SCRIBE, acting as scribe for Madison Boateng MD. Madison Boateng MD: This documentation has been prepared by the Jaspal bingham Xhesika, SCRIBE, under my direction and personally reviewed by me in its entirety. I confirm that the documentation accurately reflects all work, treatment, procedures, and medical decision making performed by me. Attending Attestation - Resident Resident Name: JavanAgustin - ED Attending Attestation I have performed the following: I have examined & evaluated the patient, The case was reviewed & discussed with the resident, I agree w/resident's findings & plan, Exceptions are as noted - HPI HPI: 06/08/20 22:34 The patient is a 50y/o F with a pmh of HTN and HLD who presents to the ED for 2 days of fever, diffuse crampy abdominal pain, and 10/10 epigastric pain. Pt reports multiple episodes of watery diarrhea. Pt reports Tmax of 100.2 at home. Pt denies taking medication at home for pain relief. Pt denies any recent travel or sick contact. Denies recent antibiotic use or camping, stream drinking, or any other infectious diarrhea risk factors. Pt denies chest pain, SOB, headache, dizziness. Denies cough, N/V. Denies any URI symptoms. Allergies: NKDA 06/08/20 23:16 - Physicial Exam PE: 06/08/20 23:17 GENERAL: nontoxic but a bit uncomfortable-appearing, A/Ox4, answers questions appropriately, pleasant, obese HEENT: PERRLA, EOMI, moist mucous membranes NECK/BACK: no midline ttp, no spinal step-off or deformity, no hematoma, full ROM, neck supple CARDIOVASCULAR: regular rate/rhythm, no MGR, strong peripheral pulses, capillary refill <2 seconds, extremities wwp, no edema LUNGS/RESPIRATORY: no respiratory distress, CTAB GI/ABDOMEN: symmetric [id number], a bit hyperactive BS, soft, mild diffuse ttp, no midline pulsatile masses : no CVA tenderness MSK/EXTREMITIES: no muscle atrophy, no acute deformity SKIN: warm and dry, no pallor, no jaundice, no rash, no pathologic-appearing b ruising, no skin breakdown, no cuts, no lesions NEUROLOGICAL: GCS 15, CN II-XII grossly intact, 5/5 strength proximally and distally, no facial droop - Medical Decision Making 06/08/20 23:18 50YOF p/w diarrhea and diffuse abdominal pain. Initial Vital Signs Temp Pulse Resp BP Pulse Ox 100.0 F H 93 H 20 170/98 99 06/08/20 20:40 06/08/20 20:40 06/08/20 20:40 06/08/20 20:40 06/08/20 20:40 Most likely gastroenteritis, possible colitis/diverticulitis, cholecystitis or choledocholithiasis or other biliary pathology, appendicitis, gastritis, pancrea titis, PUD, UTI, etc. Provider Orders Category Date Time Status ABDOMEN & PELVIS CT WITH CONTR [CT] Stat CT Scan 06/09/20 00:10 Completed ELECTROCARDIOGRAM [CARD] Stat Cardiology 06/09/20 04:08 Completed EKG needed NOW Care 06/09/20 04:09 Completed CARDIAC PROFILE ([facility]) Stat Lab 06/09/20 04:27 Completed CBC WITH DIFFERENTIAL Stat Lab 06/08/20 22:00 Completed COMP METABOLIC PANEL Stat Lab 06/08/20 22:00 Completed LACTIC ACID Stat Lab 06/09/20 04:25 Completed LIPASE Stat Lab 06/08/20 22:00 Completed PT/INR (PROTHROMBIN TIME) Stat Lab 06/08/20 22:00 Completed THYROID STIMULATING HORMONE Stat Lab 06/09/20 04:27 Completed THYROXINE (T4) Stat Lab 06/09/20 04:27 Completed UA ([facility]) ONLY Stat Lab 06/08/20 21:31 Completed UA ([facility]) ONLY Stat Lab 06/09/20 09:06 Completed Acetaminophen Injection [Ofirmev Injection -] Medication 06/08/20 22:22 Discontinued 1,000 mg IVPB ONCE ONE Acetaminophen Injection [Ofirmev Injection -] 100 ml Medication 06/08/20 22:36 Discontinued IVPB UD Acetaminophen Injection [Ofirmev Injection -] 100 ml Medication 06/08/20 23:43 Discontinued IVPB UD Ceftriaxone [Rocephin -] Medication 06/09/20 05:39 Discontinued 1 gm .ROUTE .STK-MED ONE Ceftriaxone [Rocephin -] 1 gm Medication 06/09/20 05:36 Discontinued Dextrose 5%-Water - [D5w -] 100 ml IVPB ONCE Famotidine 20 mg/50 ml Ivpb [Pepcid 20 mg Premixed Ivpb Medication 06/08/20 22:22 Discontinued -] 20 mg in 50 ml IVPB ONCE Famotidine 20 mg/50 ml Ivpb [Pepcid 20 mg Premixed Ivpb Medication 06/08/20 23:44 Discontinued -] 20 mg in 50 ml IVPB UD Morphine Injection - Medication 06/09/20 04:07 Discontinued 4 mg IM ONCE ONE Morphine Sulfate Medication 06/09/20 04:30 Discontinued 4 mg .ROUTE .STK-MED ONE Sodium Chloride [Normal Saline -] 1,000 ml Medication 06/08/20 20:30 Discontinued IV ASDIR Sodium Chloride [Normal Saline -] 1,000 ml Medication 06/09/20 02:21 Discontinued IV ASDIR URINE CULTURE Stat Micro 06/08/20 21:31 Completed IV Insert NOW Phy Order 06/08/20 20:30 Completed Medications Discontinued Medications Generic Name Dose Route Start Last Admin Trade Name Freq PRN Reason Stop Dose Admin Acetaminophen 1,000 mg 06/08/20 22:22 06/08/20 23:47 Ofirmev Injection - IVPB 06/08/20 22:23 1,000 mg ONCE ONE Administration Acetaminophen 1,000 mg 06/09/20 07:45 06/09/20 07:57 Ofirmev Injection - IVPB 06/09/20 07:46 1,000 mg ONCE ONE Administration Acetaminophen 650 mg 06/09/20 08:27 06/09/20 21:31 Tylenol - PO 650 mg Q4H PRN Administration PAIN LEVEL 4 - 6 Atorvastatin Calcium 20 mg 06/09/20 22:00 06/10/20 22:37 Lipitor - PO 20 mg HS RENZO Administration Azithromycin 500 mg 06/09/20 11:36 06/09/20 11:52 Zithromax - PO 06/09/20 11:37 500 mg ONCE ONE Administration Azithromycin Confirm 06/09/20 11:44 Zithromax - Administered 06/09/20 11:45 Dose 500 mg .ROUTE .STK-MED ONE Ceftriaxone Sodium Confirm 06/09/20 05:39 Rocephin - Administered 06/09/20 05:40 Dose 1 gm .ROUTE .STK-MED ONE Heparin Sodium (Porcine) 5,000 unit 06/09/20 10:00 06/09/20 10:10 Heparin - SQ 5,000 unit Q8H-IV RENZO Administration Heparin Sodium (Porcine) Confirm 06/09/20 10:09 Heparin - Administered 06/09/20 10:10 Dose 5,000 unit .ROUTE .STK-MED ONE Heparin Sodium (Porcine) 5,000 unit 06/09/20 14:00 06/11/20 15:07 Heparin - SQ Not Given TID RENZO Heparin Sodium (Porcine) Confirm 06/09/20 14:10 Heparin - Administered 06/09/20 14:11 Dose 5,000 unit .ROUTE .STK-MED ONE Sodium Chloride 1,000 mls @ 1,000 mls/hr 06/08/20 20:30 06/08/20 22:31 Normal Saline - IV 06/08/20 21:29 1,000 mls/hr ASDIR STA Administration Famotidine/Sodium Chloride 20 mg in 50 mls @ 100 mls/hr 06/08/20 22:22 06/08/20 23:47 Pepcid 20 Mg Premixed Ivpb - IVPB 06/08/20 22:51 100 mls/hr ONCE ONE Administration Acetaminophen Confirm 06/08/20 22:36 Ofirmev Injection - Administered 06/08/20 22:37 Dose 100 mls @ ud IVPB .STK-MED ONE Acetaminophen Confirm 06/08/20 23:43 Ofirmev Injection - Administered 06/08/20 23:44 Dose 100 mls @ ud IVPB .STK-MED ONE Famotidine/Sodium Chloride Confirm 06/08/20 23:44 Pepcid 20 Mg Premixed Ivpb - Administered 06/08/20 23:45 Dose 20 mg in 50 mls @ ud IVPB .STK-MED ONE Sodium Chloride 1,000 mls @ 1,000 mls/hr 06/09/20 02:21 06/09/20 03:07 Normal Saline - IV 06/09/20 03:20 1,000 mls/hr ASDIR STA Administration Ceftriaxone Sodium 1 gm/ 100 mls @ 200 mls/hr 06/09/20 05:36 06/09/20 05:40 Dextrose IVPB 06/09/20 06:05 200 mls/hr ONCE ONE Administration Sodium Chloride 1,000 mls @ 75 mls/hr 06/09/20 08:30 06/09/20 08:38 Normal Saline - IV 06/11/20 21:49 75 mls/hr ASDIR RENZO Administration Azithromycin 500 mg in 250 mls @ 250 mls/hr 06/09/20 11:35 06/09/20 12:39 Zithromax 500mg Ivpb (Pre-Docked) IVPB 06/09/20 12:34 Not Given ONCE ONE Sodium Chloride 1,000 mls @ 100 mls/hr 06/09/20 12:57 06/10/20 13:00 Normal Saline - IV 06/10/20 18:29 Not Given ASDIR RENZO Metronidazole 500 mg in 100 mls @ 100 mls/hr 06/09/20 18:00 06/11/20 09:29 Flagyl 500mg Premixed Ivpb - IVPB 100 mls/hr Q8H-IV RENZO Administration Metronidazole Confirm 06/09/20 17:55 Flagyl 500mg Premixed Ivpb - Administered 06/09/20 17:56 Dose 500 mg in 100 mls @ ud IVPB .STK-MED ONE Levofloxacin 500 mg 06/10/20 06:00 06/11/20 06:15 Levaquin - PO 500 mg DAILY@0600 RENZO Administration Levothyroxine Sodium 100 mcg/ 175 mcg 06/10/20 07:00 06/11/20 06:14 Levothyroxine Sodium 75 mcg PO 175 mcg DAILY@0700 RENZO Administration Levothyroxine Sodium Confirm 06/10/20 06:20 Synthroid - Administered 06/10/20 06:21 Dose 100 mcg .ROUTE .STK-MED ONE Levothyroxine Sodium Confirm 06/10/20 06:20 Synthroid - Administered 06/10/20 06:21 Dose 75 mcg .ROUTE .STK-MED ONE Levothyroxine Sodium Confirm 06/11/20 05:54 Synthroid - Administered 06/11/20 05:55 Dose 100 mcg .ROUTE .STK-MED ONE Levothyroxine Sodium Confirm 06/11/20 05:54 Synthroid - Administered 06/11/20 05:55 Dose 75 mcg .ROUTE .STK-MED ONE Morphine Sulfate 4 mg 06/09/20 04:07 06/09/20 04:32 Morphine Injection - IM 06/09/20 04:08 4 mg ONCE ONE Administration Morphine Sulfate Confirm 06/09/20 04:30 Morphine Sulfate Administered 06/09/20 04:31 Dose 4 mg .ROUTE .STK-MED ONE Nitrofurantoin Macrocrystals 100 mg 06/11/20 12:30 06/11/20 14:09 Macrodantin - PO 06/11/20 12:31 Not Given ONCE ONE Nitrofurantoin Macrocrystals 50 mg 06/11/20 18:00 Macrodantin - PO Q6HPO RENZO Pantoprazole Sodium 40 mg 06/09/20 10:00 06/11/20 09:29 Protonix Iv IVPUSH 40 mg DAILY RENZO Administration Pantoprazole Sodium Confirm 06/09/20 10:09 Protonix Iv Administered 06/09/20 10:10 Dose 40 mg .ROUTE .STK-MED ONE Pramipexole Dihydrochloride 1 mg 06/09/20 22:00 06/10/20 22:37 Mirapex - PO 1 mg HS RENZO Administration Topiramate 50 mg 06/09/20 10:00 06/11/20 09:29 Topamax - PO 50 mg BID RENZO Administration Topiramate Confirm 06/09/20 10:09 Topamax - Administered 06/09/20 10:10 Dose 50 mg .ROUTE .STK-MED ONE Microbiology Tests 06/09/20 04:00 Urine Culture - Final Urine - Urine Clean Catch Escherichia Coli Lab Results WBC 9.9 K/mm3 (4.0-10.0) 06/08/20 22:00 RBC 4.60 M/mm3 (3.60-5.2) 06/08/20 22:00 Hgb 13.6 GM/dL (10.7-15.3) 06/08/20 22:00 Hct 40.7 % (32.4-45.2) 06/08/20 22:00 MCV 88.5 fl (80-96) 06/08/20 22:00 MCH 29.5 pg (25.7-33.7) 06/08/20 22:00 MCHC 33.4 g/dl (32.0-36.0) 06/08/20 22:00 RDW 14.0 % (11.6-15.6) D 06/08/20 22:00 Plt Count 225 K/MM3 (134-434) 06/08/20 22:00 MPV 10.3 fl (7.5-11.1) 06/08/20 22:00 Absolute Neuts (auto) 7.5 K/mm3 (1.5-8.0) 06/08/20 22:00 Neutrophils % 75.6 % (42.8-82.8) D 06/08/20 22:00 Lymphocytes % 14.8 % (8-40) D 06/08/20 22:00 Monocytes % 6.4 % (3.8-10.2) 06/08/20 22:00 Eosinophils % 2.1 % (0-4.5) 06/08/20 22:00 Basophils % 1.1 % (0-2.0) 06/08/20 22:00 Nucleated RBC % 0 % (0-0) 06/08/20 22:00 PT with INR 10.80 SEC (9.7-13.0) 06/08/20 22:00 INR 0.92 (0.83-1.09) 06/08/20 22:00 Sodium 140 mmol/L (136-145) 06/08/20 22:00 Potassium 4.0 mmol/L (3.5-5.1) 06/08/20 22:00 Chloride 108 mmol/L (98-107) H 06/08/20 22:00 Carbon Dioxide 24 mmol/L (21-32) 06/08/20 22:00 Anion Gap 8 MMOL/L (8-16) 06/08/20 22:00 BUN 20.6 mg/dL (7-18) H 06/08/20 22:00 Creatinine 1.1 mg/dL (0.55-1.3) 06/08/20 22:00 Est GFR (CKD-EPI)AfAm 66.85 06/08/20 22:00 Est GFR (CKD-EPI)NonAf 57.68 06/08/20 22:00 Random Glucose 90 mg/dL (74-106) 06/08/20 22:00 Lactic Acid 1.8 mmol/L (0.4-2.0) 06/09/20 04:25 Calcium 8.6 mg/dL (8.5-10.1) 06/08/20 22:00 Total Bilirubin 0.3 mg/dL (0.2-1) 06/08/20 22:00 AST 17 U/L (15-37) 06/08/20 22:00 ALT 26 U/L (13-61) 06/08/20 22:00 Alkaline Phosphatase 76 U/L (45-117) 06/08/20 22:00 Creatine Kinase 91 U/L (26-192) 06/09/20 04:27 Troponin I < 0.02 ng/ml (0.00-0.05) 06/09/20 04:27 Total Protein 7.5 g/dl (6.4-8.2) 06/08/20 22:00 Albumin 3.5 g/dl (3.4-5.0) 06/08/20 22:00 Lipase 314 U/L (73-393) 06/08/20 22:00 TSH 5.17 uIU/ml (0.358-3.74) H 06/09/20 04:27 Thyroxine (T4) 9.4 ug/dl (4.5-13.9) 06/09/20 04:27 Urine Color Yellow 06/09/20 04:00 Urine Appearance Clear 06/09/20 04:00 Urine pH 6.0 (5.0-8.0) 06/09/20 04:00 Ur Specific [place] 1.028 (1.010-1.035) 06/09/20 04:00 Urine Protein 2+ (NEGATIVE) H 06/09/20 04:00 Urine Glucose (UA) Negative (NEGATIVE) 06/09/20 04:00 Urine Ketones Negative (NEGATIVE) 06/09/20 04:00 Urine Blood Trace (NEGATIVE) 06/09/20 04:00 Urine Nitrite Positive (NEGATIVE) H 06/09/20 04:00 Urine Bilirubin Negative (NEGATIVE) 06/09/20 04:00 Urine Urobilinogen 0.2 mg/dL (0.2-1.0) 06/09/20 04:00 Ur Leukocyte Esterase Negative (NEGATIVE) 06/09/20 04:00 Urine WBC (Auto) 8 /uL (0-25.8) 06/09/20 04:00 Urine RBC (Auto) 4 /uL (0-23.9) 06/09/20 04:00 Urine Casts (Auto) 0 /uL (0-3.1) 06/09/20 04:00 U Epithel Cells (Auto) 8 /uL (0-25.1) 06/09/20 04:00 Urine Bacteria (Auto) >9,000 /uL (0-1359) 06/09/20 04:00 Patient with intractable abdominal pain despite medications is pending CT abdomen/pelvis and signed out to night team at the end of my shift. Growing concern for infectious etiology given that she has not improved with medications, had low-grade fever. May require admission for intractable pain and further tx. CT/ABDOMEN PELVIS CT WITH CONTR HISTORY PROVIDED: Abdominal pain TECHNIQUE: Sequential axial images were obtained from the domes of the diaphragm through the symphysis pubis following the administration of intravenous contrast material. The liver is enlarged measuring 21.3 cm in craniocaudad dimension. It is hypodense in texture consistent with diffuse fatty infiltration. No mass lesions are identified within the liver. The spleen, pancreas, adrenal glands and left kidney demonstrate no significant abnormalities. There is malrotation of the right kidney with no evidence of hydronephrosis or obstructive uropathy. There is a 1.8 cm left renal cyst. The gallbladder is clear. There is no evidence of intra-abdominal or retroperitoneal lymphadenopathy or fluid collections. There is no evidence of pneumoperitoneum, bowel obstruction or intra-abdominal abscess. There is thickening and irregularity of the right colon, as well the terminal ileum. This appearance is suspicious for Crohn's disease. Additional etiologies for ileitis/colitis cannot be ex cluded. Clinical correlation is advised. Examination of the pelvis demonstrates no evidence of pelvic masses, fluid collections or lymphadenopathy. The uterus has been removed. There is no evidence of acute bony pathology. IMPRESSION: 1. Hepatomegaly with diffuse fatty infiltration of the liver. 2. 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 3. Thickening and irregularity of the right colon and terminal ileum suspicious for Crohn's disease. Clinical correlation and follow-up recommended. Please see above discussion. Discharge - Discharge Information Problems reviewed: Yes Clinical Impression/Diagnosis: Abdominal pain, Ileitis, terminal, Colitis, UTI (urinary tract infection) Diarrhea Qualifiers: Diarrhea type: unspecified type Qualified Code(s): R19.7 - Diarrhea, unspecified Condition: Stable Disposition: HOME - Admission No - Follow up/Referral - Patient Discharge Instructions - Post Discharge Activity
--- NOTE | 2020-06-08 23:24 | PDOC ---
History of Present Illness - General Chief Complaint: Diarrhea Stated Complaint: FEVER/DIARRHEA/ABD PAIN Time Seen by Provider: 06/08/20 20:27 - History of Present Illness Initial Comments: 06/08/20 23:17 HPI: 50 y/o F with hx of HTN and HLD not on any meds presenting with fever, diarrhea and abd pain x3-4days. She had several shots and then later the symptoms began. First had loose stools then had watery stools 10x/day. Crampy abd pain primarily epigastric but with diffuse pain as well. no radiation. 07/24. Did not try meds. No alleviating or worsening factors.Denies sick contactsd, n/v, chest pain, SOB, hematuria, dysuria. PMHx: as noted above ROS: as noted SHx: Denies tobacco use; +alcohol use; no rec drugs Allergies: NKDA ROS: GENERAL/CONSTITUTIONAL: No fever or chills. No weakness. HEAD, EYES, EARS, NOSE AND THROAT: No change in vision. No ear pain or discharge. No sore throat. CARDIOVASCULAR: No chest pain or shortness of breath RESPIRATORY: No cough, wheezing, or hemoptysis. GASTROINTESTINAL: +diarrhea; No nausea, vomiting, or constipation. GENITOURINARY: No dysuria, frequency, or change in urination. MUSCULOSKELETAL: No joint or muscle swelling or pain. No neck or back pain. SKIN: No rash NEUROLOGIC: No headache, vertigo, loss of consciousness, or change in strength/sensation. ENDOCRINE: No increased thirst. No abnormal weight change HEMATOLOGIC/LYMPHATIC: No anemia, easy bleeding, or history of blood clots. ALLERGIC/IMMUNOLOGIC: No hives or skin allergy. PE: GENERAL: Awake, alert, and fully oriented, no acute distress HEAD: No signs of trauma, normocephalic, atraumatic EYES: EOMI, sclera anicteric, conjunctiva clear ENT: Auricles normal inspection, hearing grossly normal, nares patent, oropharynx clear without exudates. Moist mucosa NECK: Normal ROM, no lymphadenopathy LUNGS: No increased work of breathing, symmetrical chest rise, clear to auscultation bilaterally, no wheezes, crackles or rhonchi HEART: Regular rate, regular rhythm, normal S1 and S2, no murmur, peripheral pulses 2+ and equal bilaterally. ABDOMEN: Soft, nondistended, diffuse abd ttp with guarding, no rebound. No masses. No CVAT MUSCULOSKELETAL: FROM NEUROLOGICAL: Cranial nerves II through XII grossly intact. Normal speech, stable gait, no focal sensorimotor deficits SKIN: Warm, Dry, normal turgor, no rashes or lesions noted Past History - Medical History Allergies/Adverse Reactions: Allergies Allergy/AdvReac Type Severity Reaction Status Date / Time No Known Allergies Allergy Verified 11/18/19 17:48 Home Medications: Ambulatory Orders Pramipexole Di-HCl [Mirapex] 0.5 mg PO BID 05/22/15 Simvastatin [Zocor -] 40 mg PO DAILY 05/22/15 Levothyroxine [Synthroid -] 150 mcg PO DAILY 05/26/16 Topiramate [Topamax] 50 mg PO BID 05/26/16 Amlodipine Besylate [Norvasc -] 10 mg PO DAILY 10/21/19 Montelukast Na [Singulair -] 10 mg PO HS 10/21/19 Guaifenesin AC [Robitussin AC] 10 ml PO Q8H #150 ml MDD 3 11/18/19 Ibuprofen 600 mg PO Q6H #30 tablet 11/18/19 Oseltamivir Phosphate [Tamiflu] 75 mg PO BID #10 capsule 11/18/19 predniSONE [Deltasone -] 40 mg PO DAILY #8 tablet 11/18/19 Anemia: Yes COPD: No Diabetes: Yes Hypercholesterolemia: Yes Thyroid Disease: Yes (hypo) - Reproductive History Is Patient Now?: No (#): 5 Para: 4 Therapeutic (s) & number: No - Immunization History Immunization Up to Date: Yes - Psycho-Social/Smoking History Smoking History: Never smoked Have you smoked in the past 12 months: No - Substance Abuse Hx (Audit-C & DAST Scrn) How often the patient has a drink containing alcohol: Never Score: In Men: 4 or > Positive; In Women: 3 or > Positive: 0 Screen Result (Pos requires Nsg. Audit-10AR): Negative *Physical Exam - Vital Signs Last Vital Signs Temp Pulse Resp BP Pulse Ox 100.0 F H 93 H 20 170/98 99 06/08/20 20:40 06/08/20 20:40 06/08/20 20:40 06/08/20 20:40 06/08/20 20:40 ED Treatment Course - LABORATORY CBC & Chemistry Diagram: 06/08/20 22:00 06/08/20 22:00 - ADDITIONAL ORDERS Additional order review: Laboratory Results 06/08/20 06/08/20 06/08/20 22:00 22:00 22:00 WBC 9.9 RBC 4.60 Hgb 13.6 Hct 40.7 MCV 88.5 MCH 29.5 MCHC 33.4 RDW 14.0 D Plt Count 225 MPV 10.3 Absolute Neuts (auto) 7.5 Neutrophils % 75.6 D Lymphocytes % 14.8 D Monocytes % 6.4 Eosinophils % 2.1 Basophils % 1.1 Nucleated RBC % 0 PT with INR 10.80 INR 0.92 Sodium 140 Potassium 4.0 Chloride 108 H Carbon Dioxide 24 Anion Gap 8 BUN 20.6 H Creatinine 1.1 Est GFR (CKD-EPI)AfAm 66.85 Est GFR (CKD-EPI)NonAf 57.68 Random Glucose 90 Calcium 8.6 Total Bilirubin 0.3 AST 17 ALT 26 Alkaline Phosphatase 76 Total Protein 7.5 Albumin 3.5 Lipase 314 06/08/20 22:00 RBC 4.60 MCV 88.5 MCHC 33.4 RDW 14.0 D MPV 10.3 Neutrophils % 75.6 D Lymphocytes % 14.8 D Monocytes % 6.4 Eosinophils % 2.1 Basophils % 1.1 - Medications Given in the ED: ED Medications Discontinued Medications Generic Name Dose Route Start Last Admin Trade Name Freq PRN Reason Stop Dose Admin Sodium Chloride 1,000 mls @ 1,000 mls/hr 06/08/20 20:30 06/08/20 22:31 Normal Saline - IV 06/08/20 21:29 1,000 mls/hr ASDIR STA Administration Medical Decision Making - Medical Decision Making 06/09/20 00:37 50 y/o F with hx of HTN and HLD not on any meds presenting with fever, diarrhea and abd pain x3-4days. T 100 and HR 93. PE with diffuse abd tpp. DDx includes GE, appy, colitis, alcoholioc gastritis, alcoholic panc -cbc, cmp, coags, lipase, ivf, pepcid, ofirmev -reassess 06/09/20 00:39 pain completely resolved; patient requesting DC 06/09/20 00:39 patient reports pain returned; will proceed to CT abd pel w/ contrast 06/09/20 02:29 administer 2nd bolus ivf pending ua 06/09/20 04:09 CT: terminal ileitis and right sided colitis concerning for Crohns vs infectious etiology requiring additional pain control will admit for intractable abd pain and further workup; will require Cscope for definitive dx; deferred to inpatient team for scheduling inpatient vs outpatient cscope 06/09/20 05:38 UA with >9000 bacteria and +nitrite; will give 1g ceftriaxone mbmd pending Discharge - Discharge Information Problems reviewed: Yes Clinical Impression/Diagnosis: Abdominal pain, Ileitis, terminal, Colitis, UTI (urinary tract infection) Diarrhea Qualifiers: Diarrhea type: unspecified type Qualified Code(s): R19.7 - Diarrhea, unspecified Condition: Stable - Follow up/Referral - Patient Discharge Instructions Additional Instructions: You were seen in the ER for diarrhea. We did a thorough history and physical exam and laboratory work. There were no concerning abnormalities on your labs. We also gave you IV fluids and medications which did help with the symptoms. We do not believe that there is an emergency any longer, and we believe you are safe to go home. Please focus on drinking plenty of fluids over the next few days. Broths and electrolyte drinks are especially good for this type of illness. If you feel able to eat anything, try the BRAT diet (bananas, rice, applesauce, and toast) for a few days, then slowly start introducing other bland foods (nothing rich). If you have any new or worsening symptoms, especially pain, fainting, new dizziness or severe weakness, rectal bleeding, or vomiting, please come back to the ER. Otherwise, follow up with your regular doctor. - Post Discharge Activity Work/Back to School Note: Back to Work
[2020-06-09] MEDS ORDERED: SODIUM CHLORIDE 1,000 ML IV STA (02:21)
[2020-06-09] MEDS ORDERED: morphine CARPU-JECT 2 MG/1 ML DISP.SYRIN IM ONE (04:07)
[2020-06-09 04:25] LABS: EPI CELLS 8 /uL (0-25.1); HYALINE CASTS 0 /uL (0-3.1); URINE APPEARANCE CLEAR; URINE BACTERIA >9,000 /uL (0-1359); URINE BILIRUBIN NEGATIVE (NEGATIVE); URINE COLOR YELLOW; URINE GLUCOSE (UA) NEGATIVE (NEGATIVE); URINE KETONE NEGATIVE (NEGATIVE); URINE LEUK ESTERASE NEGATIVE (NEGATIVE); URINE NITRITE POSITIVE (NEGATIVE); URINE PROTEIN 2+ (NEGATIVE); URINE RBC 4 /uL (0-23.9); URINE UROBILINOGEN 0.2 mg/dL (0.2-1.0); URINE WBC 8 /uL (0-25.8)
[2020-06-09] MEDS ORDERED: morphine SULFATE 4 MG/ML VIAL ONE (04:30)
[2020-06-09] MEDS ORDERED: CEFTRIAXONE 1 GM in DEXTROSE 5%-WATER - 100 ML IVPB ONE (05:36)
[2020-06-09] MEDS ORDERED: cefTRIAXone SODIUM 1 GM VIAL ONE (05:39)
[2020-06-09] MEDS ORDERED: ACETAMINOPHEN 1000 MG/100 ML VIAL (NON FORMULARY) IVPB ONE (07:45)
[2020-06-09] MEDS ORDERED: ACETAMINOPHEN 325 MG TABLET (FP) PO PRN (08:27)
[2020-06-09] MEDS ORDERED: SODIUM CHLORIDE 1,000 ML IV SCH (08:30)
--- NOTE | 2020-06-09 09:19 | HP ---
CHIEF COMPLAINT: abdominal pain PCP: Outside provider HISTORY OF PRESENT ILLNESS: 50 y/o F, pmh of migraine headaches, restless leg syndrome, hypothyroidism, s/p hysterectomy, presents for RLQ abdominal pain of 5 days duration that began on Sunday morning after a night of drinking Etoh, and worsened since then accompanied by multiple bouts nbnb semisolid diarrhea that has since persisted. Pt states that she usually never has any such symptoms after drinking, however this had severe abdominal pain and diarrhea that has worsened since onset. She rates the pain currently at 6/10 but can worsen up to 9/10, her pain comes and go and is relieved by medications. She also states that she had a temperature of 100.2 at home w/ body aches. She recently had a hysterectomy in October as per pt?. Denies chills, nausea, vomiting, chest pain, shortness of breath, numbness or tingling, melena, hematochezia, weight loss, dizziness, dysuria, urinary urgency . ER course was notable for: (1) CAT scan revealed mild right ileitis and mild right colitis. Consider crohns, infection/bowel ischemia (2) Tylenol IV (3) Lactic acid wnl Recent Travel: denies PAST MEDICAL HISTORY: migraine headaches, restless leg syndrome, hypothyroidism, PAST SURGICAL HISTORY: s/p hysterectomy Social History: Smoking: denies Alcohol: occasionally on the weekends Drugs: denies Allergies No Known Allergies Allergy (Verified 11/18/19 17:48) HOME MEDICATIONS: Home Medications Medication Instructions Recorded Simvastatin [Zocor -] 40 mg PO DAILY 05/22/15 Levothyroxine [Synthroid -] 175 mcg PO DAILY 05/26/16 Topiramate [Topamax] 50 mg PO BID 05/26/16 Montelukast Na [Singulair -] 10 mg PO HS 10/21/19 REVIEW OF SYSTEMS CONSTITUTIONAL: Absent: chills, diaphoresis, generalized weakness, HEENT: Absent: throat pain, throat swelling, difficulty swallowing, visual changes CARDIOVASCULAR: Absent: chest pain, syncope, palpitations, RESPIRATORY: Absent: cough, shortness of breath, GASTROINTESTINAL: Absent: abdominal pain, abdominal distension, nausea, vomiting, diarrhea, constipation, melena, hematochezia GENITOURINARY: Absent: dysuria, frequency, urgency, hesitancy, hematuria, flank pain, genital pain MUSCULOSKELETAL: Absent: myalgia SKIN: Absent: rash, itching, pallor PHYSICAL EXAMINATION Vital Signs - 24 hr 06/08/20 06/09/20 06/09/20 20:40 00:33 06:49 Temperature 100.0 F H 98.3 F 98.6 F Pulse Rate 93 H Pulse Rate [ 94 H 72 Left Radial] Respiratory 20 19 18 Rate Blood Pressure 170/98 Blood Pressure 163/82 142/72 [Left Arm] O2 Sat by Pulse 99 100 Oximetry (%) 06/09/20 07:25 Temperature 99.9 F H Pulse Rate Pulse Rate [ 81 Left Radial] Respiratory 18 Rate Blood Pressure Blood Pressure 134/79 [Left Arm] O2 Sat by Pulse 99 Oximetry (%) GENERAL: Awake, alert, and fully oriented, in no acute distress. Anxious EYES: PERRLA, EOMI EARS, NOSE, THROAT: Dry mucous membranes. NECK: supple without lymphadenopathy, JVD, or masses. LUNGS: Breath sounds equal, clear to auscultation bilaterally. No wheezes, and no crackles. HEART: Regular rate and rhythm, normal S1 and S2 without murmur, rub or gallop. ABDOMEN: RLQ pain/tenderness to palpation/mcburneys point, murphys negative, soft, nondistended, BS decreased. No rebound tenderness MUSCULOSKELETAL: No CVA tenderness. UPPER EXTREMITIES: 2+ pulses, warm, well-perfused. No peripheral edema. LOWER EXTREMITIES: 2+ pulses, warm, well-perfused. No peripheral edema. NEUROLOGICAL: Normal speech. Normal gait. PSYCHIATRIC: Cooperative. Good eye contact. Appropriate mood and affect. Laboratory Results - last 24 hr 06/08/20 06/08/20 06/08/20 22:00 22:00 22:00 WBC 9.9 RBC 4.60 Hgb 13.6 Hct 40.7 MCV 88.5 MCH 29.5 MCHC 33.4 RDW 14.0 D Plt Count 225 MPV 10.3 Absolute Neuts (auto) 7.5 Neutrophils % 75.6 D Lymphocytes % 14.8 D Monocytes % 6.4 Eosinophils % 2.1 Basophils % 1.1 Nucleated RBC % 0 PT with INR 10.80 INR 0.92 Sodium 140 Potassium 4.0 Chloride 108 H Carbon Dioxide 24 Anion Gap 8 BUN 20.6 H Creatinine 1.1 Est GFR (CKD-EPI)AfAm 66.85 Est GFR (CKD-EPI)NonAf 57.68 Random Glucose 90 Lactic Acid Calcium 8.6 Total Bilirubin 0.3 AST 17 ALT 26 Alkaline Phosphatase 76 Creatine Kinase Troponin I Total Protein 7.5 Albumin 3.5 Lipase 314 Urine Color Urine Appearance Urine pH Ur Specific Bryan Urine Protein Urine Glucose (UA) Urine Ketones Urine Blood Urine Nitrite Urine Bilirubin Urine Urobilinogen Ur Leukocyte Esterase Urine WBC (Auto) Urine RBC (Auto) Urine Casts (Auto) U Epithel Cells (Auto) Urine Bacteria (Auto) 06/09/20 06/09/20 06/09/20 04:00 04:25 04:27 WBC RBC Hgb Hct MCV MCH MCHC RDW Plt Count MPV Absolute Neuts (auto) Neutrophils % Lymphocytes % Monocytes % Eosinophils % Basophils % Nucleated RBC % PT with INR INR Sodium Potassium Chloride Carbon Dioxide Anion Gap BUN Creatinine Est GFR (CKD-EPI)AfAm Est GFR (CKD-EPI)NonAf Random Glucose Lactic Acid 1.8 Calcium Total Bilirubin AST ALT Alkaline Phosphatase Creatine Kinase 91 Troponin I < 0.02 Total Protein Albumin Lipase Urine Color Yellow Urine Appearance Clear Urine pH 6.0 Ur Specific Bryan 1.028 Urine Protein 2+ H Urine Glucose (UA) Negative Urine Ketones Negative Urine Blood Trace Urine Nitrite Positive H Urine Bilirubin Negative Urine Urobilinogen 0.2 Ur Leukocyte Esterase Negative Urine WBC (Auto) 8 Urine RBC (Auto) 4 Urine Casts (Auto) 0 U Epithel Cells (Auto) 8 Urine Bacteria (Auto) >9,000 ASSESSMENT/PLAN: 50 y/o F, pmh of migraine headaches, HLD, restless leg syndrome, hypothyroidism, s/p hysterectomy, presents for RLQ abdominal pain of 5 days duration that began on Sunday morning after a night of drinking Etoh, and worsened since then accompanied by multiple bouts nbnb semisolid diarrhea that has since persisted is admitted for mild right ileitis and Colitis likely 2/2 to infection vs crohns #Mild Ilietis and colitis likely 2/2 to Crohns vs infection ischemic bowel unlikely- no lactic acid, no pain out of proportion to physical, no bloody stool low suspicion for ovarian pathology/ abscess/rupture due to lack of free fluid on CT will need to r/o infection in the setting of mild temperature of 100.2 reported and diarrhea Will order Stool cultures- yersinia, salmonella, shigella c-diff studies Will order ESR for IBD, if elevated can consider calprotectin or fecal lactoferrin Will keep NPO cont IVF pain control with tylenol protonix pepcid if nauseous Antidiarrheal if needed GI consulted to eval for IBD will f/u recom #Hypothyrodism cont home meds- syndroid 175 TSH/T4 ordered #Restless leg syndrome cont pramipexole #Migraine cont topiramate maxalt as needed #HLD cont statins #DVT ppx heparin sq FEN npo cont IVF at 50 monitor lytes Dispo: cont IVF, npo, pain control, f/u GI recom ATTENDING PHYSICIAN STATEMENT I saw and evaluated the patient. I reviewed the resident's note and discussed the case with the resident. I agree with the resident's findings and plan as documented. SUBJECTIVE: OBJECTIVE: ASSESSMENT AND PLAN:
[2020-06-09 09:57] LABS: EPI CELLS 3 /uL (0-25.1); HYALINE CASTS 0 /uL (0-3.1); PH,URINE 6.5 (5.0-8.0); URINE APPEARANCE CLEAR; URINE BACTERIA 75 /uL (0-1359); URINE BILIRUBIN NEGATIVE (NEGATIVE); URINE COLOR YELLOW; URINE GLUCOSE (UA) NEGATIVE (NEGATIVE); URINE KETONE NEGATIVE (NEGATIVE); URINE LEUK ESTERASE NEGATIVE (NEGATIVE); URINE NITRITE NEGATIVE (NEGATIVE); URINE PROTEIN 1+ (NEGATIVE); URINE RBC 5 /uL (0-23.9); URINE UROBILINOGEN 0.2 mg/dL (0.2-1.0); URINE WBC 3 /uL (0-25.8)
[2020-06-09] MEDS ORDERED: PATIENT'S OWN MEDICATION (NON-FORMULARY) (Levothyroxine [Synthroid -] 175 MCG) PO SCH (10:00)
[2020-06-09] MEDS ORDERED: HEPARIN NA (PORCINE) 5,000 UNITS/ML 1ML VIAL SQ SCH (10:00)
--- NOTE | 2020-06-09 10:04 | EKG ---
Test Reason : Blood Pressure : / mmHG Vent. Rate : 076 BPM Atrial Rate : 076 BPM P-R Int : 160 ms QRS Dur : 078 ms QT Int : 418 ms P-R-T Axes : 064 005 001 degrees QTc Int : 470 ms NORMAL SINUS RHYTHM NONSPECIFIC ST AND T WAVE ABNORMALITY ABNORMAL ECG WHEN COMPARED WITH ECG OF 21-OCT-2019 07:23, NO SIGNIFICANT CHANGE WAS FOUND Confirmed by MD Aries, Trevor ([id number]) on 06/09/2020 10:03:39 AM Referred By: Confirmed By:Trevor Chris MD
[2020-06-09] MEDS ORDERED: PANTOPRAZOLE SODIUM 40 MG VIAL ONE (10:09)
[2020-06-09] MEDS ORDERED: HEPARIN NA (PORCINE) 5,000 UNITS/ML 1ML VIAL ONE ×2 (10:09→14:10)
[2020-06-09] MEDS ORDERED: TOPIRAMATE 25 MG TABLET ONE (10:09)
[2020-06-09] MEDS: PANTOPRAZOLE SODIUM 40 MG VIAL IVPUSH SCH (10:10)
[2020-06-09] MEDS: TOPIRAMATE 25 MG TABLET PO SCH ×2 (10:10→21:30)
--- NOTE | 2020-06-09 11:18 | PN ---
Teaching Attending Note Name of Resident: Ryan Collazo ATTENDING PHYSICIAN STATEMENT I saw and evaluated the patient. I reviewed the resident's note and discussed the case with the resident. I agree with the resident's findings and plan as documented. SUBJECTIVE: 50yo F with h/o RLS, hypothyroidism, hyperlipidemia who presents today after 5 days of RLQ abdominal pain which began Tuesday 06/05. Patient reports she was drinking vodka (shots; socially) the night before. She endorses the pain is waxing and waning with 8/10 and sharp at its worst, but will alleviate to 4-6/10 at its best. No clear triggers. Patient's pain does not improve with defecation. In addition she has been having watery diarrhea without any blood or mucus multiple times per day. She denies any discoloration of the stool and denies any nausea or vomiting. Patient sought medical evaluation when she noted a temperature at home of 100.2 with myalgias and cold diaphoresis. Denies any previous episodes, sick contacts, eating fish or shellfish recently, recent travel, SOB, CP, palpitations, numbness, weakness, lightheadedness, dizziness. She has not had any antibiotic use within the last 3 months and is not on any chronic immunosuppressant medication Pt has never had colonoscopy before. Per pharmacy, pt had amoxicillin filled in December, otherwise only chronic medications. Recent Travel: Denies PMHx: As above PSHx: Hysterectomy SoHx: No tobacco, no illicit substances. 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 Splinting due to pain. on RA CARD: RRR no murmurs appreciated ABD: Soft, lower surgical scar (healed) noted, mild distention vs. obese, hypoactive BS, TTP periumbilically and RLQ, no overt guarding, no rebound, no masses, no hepatomegaly EXT: No edema, no calf tenderness, 2+ pulses distally SKIN: No jaundice, no nodules or ulcerations noted on limbs CBC, BMP 06/08/20 22:00 06/08/20 22:00 Active Medications Acetaminophen (Tylenol -) 650 mg PO Q4H PRN PRN Reason: PAIN LEVEL 4 - 6 Atorvastatin Calcium (Lipitor -) 20 mg PO HS [facility] Heparin Sodium (Porcine) (Heparin -) 5,000 unit SQ Q8H-IV [facility] Last Admin: 06/09/20 10:10 Dose: 5,000 unit Documented by: Sodium Chloride (Normal Saline -) 1,000 mls @ 75 mls/hr IV ASDIR [facility] Stop: 06/11/20 21:49 Last Admin: 06/09/20 08:38 Dose: 75 mls/hr Documented by: Levothyroxine Sodium 100 mcg/ (Levothyroxine Sodium 75 mcg) 175 mcg PO DAILY@0700 [facility] Pantoprazole Sodium (Protonix Iv) 40 mg IVPUSH DAILY [facility] Last Admin: 06/09/20 10:10 Dose: 40 mg Documented by: Pramipexole Dihydrochloride (Mirapex -) 1 mg PO HS [facility] Topiramate (Topamax -) 50 mg PO BID [facility] Last Admin: 06/09/20 10:10 Dose: 50 mg Documented by: ASSESSMENT AND PLAN: Acute colitis likely infectious History of Hypothyroidism History of RLS History of HLD --Given low-grade temperatures and acute diarrheal syndrome (<7 days) would likely suspect infectious colitis --Rocephin given in ED; one dose of Zithromax 500mg due to common fluoroquinolone resistance in bacterial colitis --ESR, CRP ordered --C. diff ordered; stool ova and parasites --Avoid loperamide until negative C. Diff; can give bismuth PRN for symptom relief if pt requests --Bowel rest: NPO except meds --CT A/P reviewed; will need to have IBD workup after acute issues --GI consulted --Pain control with tylenol (do not exceed 4gm /24hr) --Continue home medications FEN: Fluids: Gentle IVF hydration; NS Electrolyte abnormalities: Hyperchloremia related to diarrheal syndrome Nutrition: Bowel rest except meds; adv as tolerated PPX: DVT - Heparin SQ Dispo: Admit given unremitting abd pain and possible C-scope Jovany Humphries, - IM
[2020-06-09] MEDS ORDERED: AZITHROMYCIN IVPB 500 MG/250 ML BAG IVPB ONE (11:35)
[2020-06-09] MEDS ORDERED: AZITHROMYCIN 250 MG TABLET PO ONE (11:36)
[2020-06-09] MEDS ORDERED: AZITHROMYCIN 250 MG TABLET ONE (11:44)
[2020-06-09] MEDS: SODIUM CHLORIDE 1,000 ML IV SCH (13:00)
[2020-06-09] MEDS: HEPARIN NA (PORCINE) 5,000 UNITS/ML 1ML VIAL SQ SCH ×2 (14:20→21:32)
--- NOTE | 2020-06-09 17:13 | PN ---
Progress Note (short form) - Note Progress Note: GI CONSULT DICTATED -- ABX -- STOOL CULTURE / C.DIFF -- CLEAR LIQUID DIET -- HOLD OFF ON ANY INVASIVE PROCEDURES AT THIS TIME
--- NOTE | 2020-06-09 18:49 | CONS ---
GASTROINTESTINAL CONSULTATION DATE OF CONSULTATION: 06/09/2020 Patient is a 50-year-old female, past medical history of migraine headache, restless legs syndrome, hypothyroidism, hysterectomy, who was admitted to the hospital with a 5-day history of periumbilical abdominal pain radiating to the right side of her abdomen, which began on Sunday. She also had multiple bouts of diarrhea, very loose over the past couple of days and low-grade temperature. She denies any nausea, vomiting, melena, hematochezia, or hematemesis. She has not had an endoscopic evaluation or colonoscopy. She states that when she was scheduled for colonoscopy, she could not have it done secondary to difficulty with the bowel preparation. She has no history of colitis in the past. No sick contacts, herbal supplements, culprit foods, or travel. PAST MEDICAL AND SURGICAL HISTORY: As listed in the HPI. ALLERGIES: No known drug allergies. SOCIAL HISTORY: Drinks occasionally alcohol on the weekends. No smoking and/or drug abuse. HOME MEDICATIONS: Reviewed, Zocor, Synthroid, Topamax, and Singulair. FAMILY HISTORY: No history of GI or gynecological malignancy or history of inflammatory bowel disease. PHYSICAL EXAMINATION: Vital Signs: Temperature 98, pulse 74, blood pressure 111/78. General: No acute distress. HEENT: Anicteric sclera. Cardiovascular: S1, S2. Regular rate and rhythm. Lungs: Bilateral clear to auscultation. Abdomen: Soft, nontender. Extremities: No edema. LABORATORY DATA: White blood cell count 9.9, hemoglobin 13 and hematocrit 40, MCV 88, platelet count 225. INR 0.92. Sodium 140, potassium 4, BUN 20, creatinine 1.1, total bilirubin 0.3, AST 17, ALT 26, alkaline phosphatase 76. Urine protein 1+. Serology for COVID-19 is pending. She had an abdomen and pelvic CT scan which revealed hepatomegaly with diffuse fatty infiltration of the liver, malrotation of the right kidney. No evidence of obstructive uropathy. Thickened irregularity of the right colon and terminal ileum suspicious for Crohn disease. IMPRESSION: Abdominal pain with associated diarrhea and low-grade temperature highly suspicious for an infectious etiology. Imaging findings are nonspecific for inflammatory bowel disease. However, it will need to be excluded once the acute infectious process has resolved. RECOMMENDATION: Stool culture, ova, parasites, Clostridium difficile PCR. Diet can be advanced to a clear-liquid diet. Continue this patient on antibiotics, Levaquin and Flagyl. Gentle hydration. Would benefit from a diagnostic colonoscopy which should be done as an outpatient once the acute infectious process has resolved. Will follow. DO ZOFIA DE LUNA/[id number] MTDD
[2020-06-09] MEDS: PRAMIPEXOLE DIHYDROCHLORIDE 1 MG TABLET PO SCH (21:29)
[2020-06-09] MEDS ORDERED: ATORVASTATIN CA 20 MG TABLET (FP) PO SCH (22:00)
[2020-06-09] MEDS ORDERED: CIPROFLOXACIN 500 MG TABLET (RESTRICTED TO ID) PO SCH (22:00)
[2020-06-10 02:05] VITALS: BMI 33.0
[2020-06-10] MEDS ORDERED: LEVOTHYROXINE NA 100 MCG TABLET (FP) ONE (06:20)
[2020-06-10] MEDS ORDERED: LEVOTHYROXINE NA 75 MCG TABLET (FP) ONE (06:20)
[2020-06-10] MEDS: SODIUM CHLORIDE 1,000 ML IV SCH ×2 (06:30→13:00)
[2020-06-10] MEDS: LEVOTHYROXINE 100 MCG, LEVOTHYROXINE 75 MCG PO SCH (06:31)
[2020-06-10] MEDS: HEPARIN NA (PORCINE) 5,000 UNITS/ML 1ML VIAL SQ SCH ×3 (06:32→22:36)
[2020-06-10 08:25] LABS: HEMATOCRIT 37.9 % (32.4-45.2); HEMOGLOBIN 12.7 GM/dL (10.7-15.3); MCH 29.8 pg (25.7-33.7); MCHC 33.4 g/dl (32.0-36.0); MEAN CELL VOLUME 89.3 fl (80-96); MEAN PLT VOLUME 10.4 fl (7.5-11.1); PLATELET COUNT 213 K/MM3 (134-434); RBC 4.25 M/mm3 (3.60-5.2); RDW 13.9 % (11.6-15.6); WHITE BLOOD COUNT 8.7 K/mm3 (4.0-10.0)
[2020-06-10 08:55] LABS: ALBUMIN 3.1 g/dl (3.4-5.0); BILIRUBIN,TOTAL 0.9 mg/dL (0.2-1); BLOOD UREA NITROGEN 10.9 mg/dL (7-18); CALCIUM 8.5 mg/dL (8.5-10.1); POTASSIUM 4.2 mmol/L (3.5-5.1); TOT PROT 6.6 g/dl (6.4-8.2)
[2020-06-10] MEDS: TOPIRAMATE 25 MG TABLET PO SCH ×2 (09:11→22:37)
[2020-06-10] MEDS: PANTOPRAZOLE SODIUM 40 MG VIAL IVPUSH SCH (09:15)
[2020-06-10] MEDS ORDERED: PNEUMOC 13-VAL CONJ-DIP CRM/PF 0.5 ML DISP.SYRIN IM ONE (10:00)
--- NOTE | 2020-06-10 12:09 | PN ---
Physical Exam: SUBJECTIVE: Patient seen and examined at bedside. No acute events reported overnight. This morning the patient continues to complain of abdominal pain in the RLQ and midepigastric region. Patient has no other concerns or complaints at this time. OBJECTIVE: Vital Signs Period Temp Pulse Resp BP Sys/Granado Pulse Ox Last 24 Hr 97.8 F-100.5 F 66-78 18-20 108-156/50-92 96-100 GENERAL: AAOx3, in no acute distress HEENT: NCAT, PERRLA, EOMI, sclera anicteric, conjunctiva clear, oropharynx clear w/o exudates. MMM. NECK: Normal ROM, supple, no lymphadenopathy, JVD, or masses LUNGS: CTABL no wheezes/ rhonchi/ rales. No distress, speaks in full sentences. No increased work of breathing. HEART: RRR, normal S1 S2, no M/R/G, peripheral pulses 2+ and equal b/l ABDOMEN: mildly distended, hypoactive BS, TTP periumbilically and RLQ and midepigastric region, no overt guarding, no rebound, no masses, no hepatomegaly MSK: ROM WNL EXTREMITIES: Normal inspection. No peripheral edema. No clubbing or cyanosis. NEUROLOGICAL: CN II-XII intact. Normal speech, normal gait, no focal sensorimotor deficits. SKIN: Warm, Dry, normal turgor, no rashes or lesions noted Laboratory Results - last 24 hr CBC, BMP 06/10/20 07:28 06/10/20 07:28 06/10/20 06/10/20 07:28 07:28 WBC 8.7 RBC 4.25 Hgb 12.7 Hct 37.9 MCV 89.3 MCH 29.8 MCHC 33.4 RDW 13.9 Plt Count 213 MPV 10.4 Sodium 141 Potassium 4.2 Chloride 110 H Carbon Dioxide 24 Anion Gap 7 L BUN 10.9 Creatinine 1.0 Est GFR (CKD-EPI)AfAm 75.01 Est GFR (CKD-EPI)NonAf 64.72 Random Glucose 105 Calcium 8.5 Total Bilirubin 0.9 AST 15 ALT 25 Alkaline Phosphatase 70 Total Protein 6.6 Albumin 3.1 L Active Medications Generic Name Dose Route Start Last Admin Trade Name Freq PRN Reason Stop Dose Admin Acetaminophen 650 mg 06/09/20 08:27 06/09/20 21:31 Tylenol - PO 650 mg Q4H PRN Administration PAIN LEVEL 4 - 6 Atorvastatin Calcium 20 mg 06/09/20 22:00 Lipitor - PO HS [facility] Heparin Sodium (Porcine) 5,000 unit 06/09/20 14:00 06/10/20 06:32 Heparin - SQ 5,000 unit TID RENZO Administration Sodium Chloride 1,000 mls @ 100 mls/hr 06/09/20 12:57 06/10/20 06:30 Normal Saline - IV 06/10/20 18:29 100 mls/hr ASDIR RENZO Administration Metronidazole 500 mg in 100 mls @ 100 mls/hr 06/09/20 18:00 06/10/20 09:17 Flagyl 500mg Premixed Ivpb - IVPB 100 mls/hr Q8H-IV RENZO Administration Levofloxacin 500 mg 06/10/20 06:00 06/10/20 06:31 Levaquin - PO 500 mg DAILY@0600 RENZO Administration Levothyroxine Sodium 100 mcg/ 175 mcg 06/10/20 07:00 06/10/20 06:31 Levothyroxine Sodium 75 mcg PO 175 mcg DAILY@0700 RENZO Administration Pantoprazole Sodium 40 mg 06/09/20 10:00 06/10/20 09:15 Protonix Iv IVPUSH 40 mg DAILY [facility] Administration Pneumococcal 13-Valent Conj Vacc 0.5 ml 06/10/20 10:00 Prevnar 13 Syringe - IM 06/10/20 10:01 .ONCE ONE Pramipexole Dihydrochloride 1 mg 06/09/20 22:00 06/09/20 21:29 Mirapex - PO 1 mg HS RENZO Administration Topiramate 50 mg 06/09/20 10:00 06/10/20 09:11 Topamax - PO 50 mg BID RENZO Administration ASSESSMENT/PLAN: #Mild Ilietis and Colitis -likely 2/2 to Crohns vs infection -CT: thickening and irregularity of R colon and terminal ileum suspicious for Crohn's disease -GI consulted: Dr. Richards recommends stool culture/C. diff test; clear liquid diet -Stool cultures- yersinia, salmonella, shigella - still pending -c-diff studies- NEGATIVE -Tylenol for pain Q4 PRN -continue Levaquin and flagyl #UTI -urine culture preliminary results positive for gram negative rods -continue Levaquin 500 BID #Hypothyrodism -Levothyroxine 175 mg #Restless Leg Syndrome -Pramipexole 1 mg PO #Migraine -Topiramate 50 mg PO #Hyperlipidemia -Atorvostatin 20 mg PO #FEN -cont IVF at 100 mls/hr -monitor electrolytes -NPO #Prophylaxis -DVT: Heparin SQ Dispo: continue to monitor in med/surg Visit type - Emergency Visit Emergency Visit: No - New Patient This patient is new to me today: Yes Date on this admission: 06/10/20 - Critical Care Critical Care patient: No - Discharge Referral Referred to [facility] Med P.C[facility] No ATTENDING PHYSICIAN STATEMENT I saw and evaluated the patient. I reviewed the resident's note and discussed the case with the resident. I agree with the resident's findings and plan as documented. SUBJECTIVE: OBJECTIVE: ASSESSMENT AND PLAN:
--- NOTE | 2020-06-10 18:04 | PN ---
Teaching Attending Note Name of Resident: Abelardo Chavez ATTENDING PHYSICIAN STATEMENT I saw and evaluated the patient. I reviewed the resident's note and discussed the case with the resident. I agree with the resident's findings and plan as documented. SUBJECTIVE: Patient is c/o diffuse abdominal pain pavan. the RLQ and midepigastric region. OBJECTIVE: Vital Signs Temperature 98 F 06/10/20 14:00 Pulse Rate 68 06/10/20 14:00 Respiratory Rate 20 06/10/20 14:00 Blood Pressure 144/91 06/10/20 14:00 O2 Sat by Pulse Oximetry (%) 99 06/10/20 14:00 PE: per resident's note Positive for midepigastric tenderness. CBCD WBC 8.7 K/mm3 (4.0-10.0) 06/10/20 07:28 RBC 4.25 M/mm3 (3.60-5.2) 06/10/20 07:28 Hgb 12.7 GM/dL (10.7-15.3) 06/10/20 07:28 Hct 37.9 % (32.4-45.2) 06/10/20 07:28 MCV 89.3 fl (80-96) 06/10/20 07:28 MCHC 33.4 g/dl (32.0-36.0) 06/10/20 07:28 RDW 13.9 % (11.6-15.6) 06/10/20 07:28 Plt Count 213 K/MM3 (134-434) 06/10/20 07:28 MPV 10.4 fl (7.5-11.1) 06/10/20 07:28 CMP Sodium 141 mmol/L (136-145) 06/10/20 07:28 Potassium 4.2 mmol/L (3.5-5.1) 06/10/20 07:28 Chloride 110 mmol/L (98-107) H 06/10/20 07:28 Carbon Dioxide 24 mmol/L (21-32) 06/10/20 07:28 Anion Gap 7 MMOL/L (8-16) L 06/10/20 07:28 BUN 10.9 mg/dL (7-18) 06/10/20 07:28 Creatinine 1.0 mg/dL (0.55-1.3) 06/10/20 07:28 Random Glucose 105 mg/dL (74-106) 06/10/20 07:28 Calcium 8.5 mg/dL (8.5-10.1) 06/10/20 07:28 Total Bilirubin 0.9 mg/dL (0.2-1) 06/10/20 07:28 AST 15 U/L (15-37) 06/10/20 07:28 ALT 25 U/L (13-61) 06/10/20 07:28 Alkaline Phosphatase 70 U/L (45-117) 06/10/20 07:28 Total Protein 6.6 g/dl (6.4-8.2) 06/10/20 07:28 Albumin 3.1 g/dl (3.4-5.0) L 06/10/20 07:28 CARDIAC ENZYMES Creatine Kinase 91 U/L (26-192) 06/09/20 04:27 Troponin I < 0.02 ng/ml (0.00-0.05) 06/09/20 04:27 Current Medications Generic Name Dose Route Start Last Admin Trade Name Alexq PRN Reason Stop Dose Admin Acetaminophen 650 mg 06/09/20 08:27 06/09/20 21:31 Tylenol - PO 650 mg Q4H PRN Administration PAIN LEVEL 4 - 6 Atorvastatin Calcium 20 mg 06/09/20 22:00 Lipitor - PO HS RENZO Heparin Sodium (Porcine) 5,000 unit 06/09/20 14:00 06/10/20 14:44 Heparin - SQ 5,000 unit TID RENZO Administration Sodium Chloride 1,000 mls @ 100 mls/hr 06/09/20 12:57 06/10/20 13:00 Normal Saline - IV 06/10/20 18:29 Not Given ASDIR RENZO Metronidazole 500 mg in 100 mls @ 100 mls/hr 06/09/20 18:00 06/10/20 09:17 Flagyl 500mg Premixed Ivpb - IVPB 100 mls/hr Q8H-IV RENZO Administration Levofloxacin 500 mg 06/10/20 06:00 06/10/20 06:31 Levaquin - PO 500 mg DAILY@0600 RENZO Administration Levothyroxine Sodium 100 mcg/ 175 mcg 06/10/20 07:00 06/10/20 06:31 Levothyroxine Sodium 75 mcg PO 175 mcg DAILY@0700 RENZO Administration Pantoprazole Sodium 40 mg 08/26/20 10:00 06/10/20 09:15 Protonix Iv IVPUSH 40 mg DAILY RENZO Administration Pneumococcal 13-Valent Conj Vacc 0.5 ml 06/10/20 10:00 Prevnar 13 Syringe - IM 06/10/20 10:01 .ONCE ONE Pramipexole Dihydrochloride 1 mg 06/09/20 22:00 06/09/20 21:29 Mirapex - PO 1 mg HS RENZO Administration Topiramate 50 mg 06/09/20 10:00 06/10/20 09:11 Topamax - PO 50 mg BID RENZO Administration Home Medications Medication Instructions Recorded Simvastatin [Zocor -] 40 mg PO DAILY 05/22/15 Levothyroxine [Synthroid -] 175 mcg PO DAILY 05/26/16 Topiramate [Topamax] 50 mg PO BID 05/26/16 Montelukast Na [Singulair -] 10 mg PO HS 10/21/19 Amlodipine Besylate [Norvasc -] 2.5 mg PO DAILY 06/09/20 Omeprazole 40 mg PO DAILY 06/09/20 Pramipexole Dihydrochloride 1 mg PO HS 06/09/20 [Mirapex -] Rizatriptan Benzoate [Maxalt] 10 mg PO DAILY 06/09/20 CT Of the abdomen and pelvis: hepatomegaly with diffuse fatthy infiltrate of the liver malrotation of the right kidney without evidence of obstructive uropathy thickening and irregularity of the right colon and terminal ileum suspecious for crohn's vs ileitis/colitis cannot be excluded. Microbiology 06/09/20 18:10 Stool Clostridioides difficile Antigen - Final 06/09/20 18:10 Stool Clostridioides difficile Toxin Assay - Final 06/09/20 04:00 Urine - Urine Clean Catch Urine Culture - Preliminary Non Lactose Fermenting Gnb ASSESSMENT AND PLAN: This patient is a 50yoF with h/o RLS, hypothyroidism, hyperlipidemia who presents today after 5 days of diffuse abdominal pain. CT scan shows: crohn's vs colitis/ileitis. #Acute colitis/Ileitis:on IV antibiotics, levaquin/flagyl IV ; Gi on the case, Dr Lr appreciated. stool cx pending #Acute UTI >100K , on LEVAQUIN will wait for the cx #Hypothyrodism : continue Levothyroxine 175 mg #Restless Leg Syndrome: on Pramipexole 1 mg continue #hx of Migraine: on Topiramate continue #Hyperlipidemia :Atorvostatin continue #DVT Px: Heparin
--- NOTE | 2020-06-10 20:14 | PN.GI ---
GI Progress Note Subjective: diarrhea improved, had one episode this morning, had a dental procedure 2 weeks ago and received antbiotics - Objective Vital Signs: Vital Signs Temperature 97.7 F 06/10/20 18:00 Pulse Rate 63 06/10/20 18:00 Respiratory Rate 20 06/10/20 18:00 Blood Pressure 144/90 06/10/20 18:00 O2 Sat by Pulse Oximetry (%) 98 06/10/20 18:00 Constitutional: Well Nourished Eyes: Yes: Conjunctiva Clear Neck: Yes: Trachea Midline Cardiovascular: Yes: Regular Rate and Rhythm Respiratory: Yes: CTA Bilaterally ...Palpate: Yes: Soft, Tenderness (--diffuse tenderness). No: Firm/Rigid, Hepatomegaly, Mass, Pulsatile Mass, Splenomegaly ...Percussion: No: Tympanitic Labs: CBC, BMP 06/10/20 07:28 06/10/20 07:28 INR, PTT INR 0.92 (0.83-1.09) 06/08/20 22:00 Problem List - Problems (1) Diarrhea Assessment/Plan: rule out Cdiff colitis R>await Cdiff consider starting Vancomycin and discontinue other antibiotics may have clear liquids, avoid fruit juices Code(s): R19.7 - DIARRHEA, UNSPECIFIED Qualifiers: Diarrhea type: unspecified type Qualified Code(s): R19.7 - Diarrhea, unspecified
[2020-06-10] MEDS: PRAMIPEXOLE DIHYDROCHLORIDE 1 MG TABLET PO SCH (22:37)
[2020-06-11] MEDS ORDERED: LEVOTHYROXINE NA 75 MCG TABLET (FP) ONE (05:54)
[2020-06-11] MEDS ORDERED: LEVOTHYROXINE NA 100 MCG TABLET (FP) ONE (05:54)
[2020-06-11] MEDS: LEVOTHYROXINE 100 MCG, LEVOTHYROXINE 75 MCG PO SCH (06:14)
[2020-06-11] MEDS: HEPARIN NA (PORCINE) 5,000 UNITS/ML 1ML VIAL SQ SCH ×2 (06:14→15:07)
[2020-06-11 09:29] LABS: BASO % 0.7 % (0-2.0); EOS % 4.9 % (0-4.5); HEMATOCRIT 39.4 % (32.4-45.2); HEMOGLOBIN 12.9 GM/dL (10.7-15.3); MCH 29.4 pg (25.7-33.7); MCHC 32.8 g/dl (32.0-36.0); MEAN CELL VOLUME 89.6 fl (80-96); MEAN PLT VOLUME 9.6 fl (7.5-11.1); MONO % 7.6 % (3.8-10.2); NEUT % 57.8 % (42.8-82.8); PLATELET COUNT 235 K/MM3 (134-434); WHITE BLOOD COUNT 6.7 K/mm3 (4.0-10.0)
[2020-06-11] MEDS: TOPIRAMATE 25 MG TABLET PO SCH (09:29)
[2020-06-11] MEDS: PANTOPRAZOLE SODIUM 40 MG VIAL IVPUSH SCH (09:29)
[2020-06-11 10:07] LABS: BLOOD UREA NITROGEN 8.7 mg/dL (7-18); CALCIUM 8.5 mg/dL (8.5-10.1); POTASSIUM 3.9 mmol/L (3.5-5.1)
[2020-06-11] MEDS ORDERED: NITROFURANTOIN MACROCRYSTAL 50 MG CAPSULE (FP) PO ONE (12:30)
--- NOTE | 2020-06-11 13:40 | PN.GI ---
GI Progress Note Subjective: No acute events 2 more formed BM's today C. Diff negative Stool for WBC's reveal few Poly's follows with Dr. Burgos as outpatient with last colonoscopy being a year ago (poor prep per patient) - Objective Vital Signs: Vital Signs Temperature 97.6 F 06/11/20 06:00 Pulse Rate 60 06/11/20 06:00 Respiratory Rate 20 06/11/20 06:00 Blood Pressure 139/91 06/11/20 06:00 O2 Sat by Pulse Oximetry (%) 99 06/11/20 06:00 Constitutional: Calm Eyes: No: Sclera Icterus Cardiovascular: Yes: Regular Rate and Rhythm Respiratory: Yes: CTA Bilaterally Gastrointestinal Inspection: No: Distention ...Auscultate: Yes: Normoactive Bowel Sounds ...Palpate: Yes: Soft. No: Hepatomegaly, Splenomegaly, Tenderness ...Percussion: No: Tympanitic Edema: No (No LE edema) Neurological: Yes: Alert Labs: CBC, BMP 06/11/20 09:02 06/11/20 09:02 INR, PTT INR 0.92 (0.83-1.09) 06/08/20 22:00 Problem List - Problems (1) Colitis Assessment/Plan: Overall clinically improved. ? acute self limited colitis Improved diarrhea OK to D/C home: complete 5 day course of Abx. Will need f/u with Dr. Burgos in [address] Burgos be aware of this and he stated that he would recall the patient Low residue diet Code(s): K52.9 - NONINFECTIVE GASTROENTERITIS AND COLITIS, UNSPECIFIED
[2020-06-11 13:57] VITALS: BP 125/79; PULSE 67; TEMP 98
--- NOTE | 2020-06-11 15:24 | DS ---
Physical Exam: SUBJECTIVE: Patient seen and examined at bedside. No overnight events reported. Patient states that she feels better today and no longer has abdominal pain. Patient reports feeling hungry today. Last episode of diarrhea was last night. Patient has no complains or concerns at this time. OBJECTIVE: Vital Signs Period Temp Pulse Resp BP Sys/Granado Pulse Ox Last 24 Hr 97.6 F-98.5 F 60-67 20-20 125-144/79-91 98-99 PHYSICAL EXAM GENERAL: AAOx3, in no acute distress HEENT: NCAT, PERRLA, EOMI, sclera anicteric, conjunctiva clear, oropharynx clear w/o exudates. MMM. NECK: Normal ROM, supple, no lymphadenopathy, JVD, or masses LUNGS: CTABL no wheezes/ rhonchi/ rales. No distress, speaks in full sentences. No increased work of breathing. HEART: RRR, normal S1 S2, no M/R/G, peripheral pulses 2+ and equal b/l ABDOMEN: Soft, NTND, + BS. No guarding or rebound. No hepatomegaly or splenomegaly. MSK: ROM WNL EXTREMITIES: Normal inspection. No peripheral edema. No clubbing or cyanosis. NEUROLOGICAL: CN II-XII intact. Normal speech, normal gait, no focal sensorimotor deficits. SKIN: Warm, Dry, normal turgor, no rashes or lesions noted LABS Laboratory Results - last 24 hr CBC, BMP 06/11/20 09:02 06/11/20 09:02 06/09/20 06/11/20 06/11/20 09:30 09:02 09:02 WBC 6.7 RBC 4.40 Hgb 12.9 Hct 39.4 MCV 89.6 MCH 29.4 MCHC 32.8 RDW 14.0 Plt Count 235 MPV 9.6 Absolute Neuts (auto) 3.9 Neutrophils % 57.8 D Lymphocytes % 29.0 D Monocytes % 7.6 Eosinophils % 4.9 H D Basophils % 0.7 Nucleated RBC % 0 Sodium 140 Potassium 3.9 Chloride 109 H Carbon Dioxide 22 Anion Gap 9 BUN 8.7 Creatinine 1.0 Est GFR (CKD-EPI)AfAm 75.01 Est GFR (CKD-EPI)NonAf 64.72 Random Glucose 146 H Calcium 8.5 COVID-19 (PRO) Not detected HOSPITAL COURSE: 50 y/o F with a pmh of migraine headaches, HLD, restless leg syndrome, hypothyroidism, s/p hysterectomy, presents for RLQ abdominal pain of 5 days duration that began on Sunday morning after a night of drinking Etoh, and worsened since then accompanied by multiple bouts of semisolid diarrhea that has since persisted is admitted for mild right ileitis and Colitis likely 2/2 to infection vs crohns. CT done upon admission showed thickening and irregularity of R colon and terminal ileum suspicious for Crohn's disease. GI was consulted and c. diff was ruled out. Stool cultures were still pending. Patient was put on a clear liquid diet for Tylenol PRN for pain. Patient was also found to have a UTI during her stay and was treated for it. The day after the patients admission symptoms improved and the patient the patient was discharged on antibiotics for the colitis and UTI with outpatient GI follow-up within a week. Patient was discharged on Ceftin 500 mg BID for 5 days, Metronidazole 500 BID for 5 days. Patient was given her home meds during her stay and Heparin SQ was given for DVT prophylaxis. Date of Admission:06/09/20 06/09/2020-Abdominal CT-hepatomegaly with diffuse infiltration of the liver. 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 Thickening and irregularity of the right colon and terminal ileum suspicious for Crohn's disease. Date of Discharge: 06/11/20 Minutes to complete discharge: 36 Discharge Summary Problems reviewed: Yes Reason For Visit: URINARY TRACT INFECTION, COLITIS, TERMINAL ILEITIS Current Active Problems Abdominal pain (Acute) Colitis (Acute) Diarrhea (Acute) Ileitis, terminal (Acute) UTI (urinary tract infection) (Acute) Condition: Stable - Instructions Diet, Activity, Other Instructions: Your Visit: You were admitted to the hospital because of abdominal pain and diarrhea. During your hospital stay, we evaluated you and found you have a urinary tract infection and inflammation of the colon. We treated you with Intravenous antibiotics and will continue with 5 more days of oral antibiotics . drink lots of water, at least 2 liters per day . -During your visit, we did a CT scan of your abdomen/pelvis and found that your kidney is malrotated. Please follow up with a boarder machine. Medications Please take the antibiotic Ceftin 500mg two times pre day for your UTI and your colitis for 5 more day Given also Metronidazole 500mg orally 2 times per day for 5 more days, Please no alcohol with this medication. Please continue all of your medications as prescribed. Follow up: Please follow up with your Senior Medical Transcriptionist, Dr. Burgos, within 1 week. Please follow up with your Production Stage Manager, Dr. Connelly, within 2 weeks. Please follow up with your Primary Care physician, or the Primary Care physician we have provided for you Dr. Lomas, within 1 week. If you experience worsening symptoms, chest pain, shortness of breath, abdominal pain, or worsening of your condition, please come to the emergency room or call 911. Additional Instructions: -You are being discharged to your home. -Please return to the Emergency Department if you experience worsening pain, fevers, chills, shortness of breath, or chest pain, or if you experience any worsening, new or concerning symptoms. Referrals: Johnie Lomas MD [Staff Physician] - 2 Weeks Tunde Burgos MD [Staff Physician] - 1 Week David Connelly MD [Staff Physician] - 2 Weeks Disposition: HOME - Home Medications Comprehensive Discharge Medication List: Ambulatory Orders Levothyroxine [Synthroid -] 175 mcg PO DAILY 05/26/16 Topiramate [Topamax] 50 mg PO BID 05/26/16 Montelukast Na [Singulair -] 10 mg PO HS 10/21/19 Amlodipine Besylate [Norvasc -] 2.5 mg PO DAILY 06/09/20 Omeprazole 40 mg PO DAILY 06/09/20 Pramipexole Dihydrochloride [Mirapex -] 1 mg PO HS 06/09/20 Rizatriptan Benzoate [Maxalt] 10 mg PO DAILY 06/09/20 Atorvastatin Ca [Lipitor] 20 mg NR DAILY #30 tablet 06/11/20 Cefuroxime Axetil [Ceftin -] 500 mg PO Q12H #10 tablet 06/11/20 metroNIDAZOLE [Metronidazole] 500 mg PO TID #15 tablet 06/11/20 This patient is new to me today: No Emergency Visit: No Critical Care patient: No - Discharge Referral Referred to [facility] Med [facility].C.: No ATTENDING PHYSICIAN STATEMENT I saw and evaluated the patient. I reviewed the resident's note and discussed the case with the resident. I agree with the resident's findings and plan as documented. SUBJECTIVE: OBJECTIVE: ASSESSMENT AND PLAN:
[2020-06-11] MEDS ORDERED: NITROFURANTOIN MACROCRYSTAL 50 MG CAPSULE (FP) PO SCH (18:00)
--- NOTE | 2020-06-11 19:08 | PN ---
Teaching Attending Note Name of Resident: Abelardo Chavez ATTENDING PHYSICIAN STATEMENT I saw and evaluated the patient. I reviewed the resident's note and discussed the case with the resident. I agree with the resident's findings and plan as documented. SUBJECTIVE: Patient is comfortable with nad. No fever or chills, no shortness of breath OBJECTIVE: Vital Signs Temperature 98.0 F 06/11/20 13:56 Pulse Rate 67 06/11/20 13:56 Respiratory Rate 20 06/11/20 13:56 Blood Pressure 125/79 06/11/20 13:56 O2 Sat by Pulse Oximetry (%) 99 06/11/20 13:56 Per resident's note CBCD WBC 6.7 K/mm3 (4.0-10.0) 06/11/20 09:02 RBC 4.40 M/mm3 (3.60-5.2) 06/11/20 09:02 Hgb 12.9 GM/dL (10.7-15.3) 06/11/20 09:02 Hct 39.4 % (32.4-45.2) 06/11/20 09:02 MCV 89.6 fl (80-96) 06/11/20 09:02 MCHC 32.8 g/dl (32.0-36.0) 06/11/20 09:02 RDW 14.0 % (11.6-15.6) 06/11/20 09:02 Plt Count 235 K/MM3 (134-434) 06/11/20 09:02 MPV 9.6 fl (7.5-11.1) 06/11/20 09:02 CMP Sodium 140 mmol/L (136-145) 06/11/20 09:02 Potassium 3.9 mmol/L (3.5-5.1) 06/11/20 09:02 Chloride 109 mmol/L (98-107) H 06/11/20 09:02 Carbon Dioxide 22 mmol/L (21-32) 06/11/20 09:02 Anion Gap 9 MMOL/L (8-16) 06/11/20 09:02 BUN 8.7 mg/dL (7-18) 06/11/20 09:02 Creatinine 1.0 mg/dL (0.55-1.3) 06/11/20 09:02 Random Glucose 146 mg/dL (74-106) H 06/11/20 09:02 Calcium 8.5 mg/dL (8.5-10.1) 06/11/20 09:02 Total Bilirubin 0.9 mg/dL (0.2-1) 06/10/20 07:28 AST 15 U/L (15-37) 06/10/20 07:28 ALT 25 U/L (13-61) 06/10/20 07:28 Alkaline Phosphatase 70 U/L (45-117) 06/10/20 07:28 Total Protein 6.6 g/dl (6.4-8.2) 06/10/20 07:28 Albumin 3.1 g/dl (3.4-5.0) L 06/10/20 07:28 CARDIAC ENZYMES Creatine Kinase 91 U/L (26-192) 06/09/20 04:27 Troponin I < 0.02 ng/ml (0.00-0.05) 06/09/20 04:27 Home Medications Medication Instructions Recorded Levothyroxine [Synthroid -] 175 mcg PO DAILY 05/26/16 Topiramate [Topamax] 50 mg PO BID 05/26/16 Montelukast Na [Singulair -] 10 mg PO HS 10/21/19 Amlodipine Besylate [Norvasc -] 2.5 mg PO DAILY 06/09/20 Omeprazole 40 mg PO DAILY 06/09/20 Pramipexole Dihydrochloride 1 mg PO HS 06/09/20 [Mirapex -] Rizatriptan Benzoate [Maxalt] 10 mg PO DAILY 06/09/20 Atorvastatin Ca [Lipitor] 20 mg NR DAILY #30 tablet 06/11/20 Cefuroxime Axetil [Ceftin -] 500 mg PO Q12H #10 tablet 06/11/20 metroNIDAZOLE [Metronidazole] 500 mg PO TID #15 tablet 06/11/20 Microbiology 06/09/20 18:10 Stool Clostridioides difficile Antigen - Final 06/09/20 18:10 Stool Clostridioides difficile Toxin Assay - Final 06/09/20 18:10 Stool Salmonella/Shigella Culture - Final NO GROWTH OF SALMONELLA OR SHIGELLA SPECIES OBTAINED 06/09/20 18:10 Stool Campylobacter Culture - Final Campylobacter Spec. Not Jejuni 06/09/20 18:10 Stool Yersinia Culture - Final NO GROWTH OF YERSINIA SPECIES OBTAINED 06/09/20 18:10 Stool Vibrio Culture - Final NO GROWTH OF VIBRIO SPECIES OBTAINED 06/09/20 18:10 Stool Escherichia coli 0157 Culture - Final NO GROWTH OF E COLI 0157 OBTAINED 06/09/20 04:00 Urine - Urine Clean Catch Urine Culture - Final Escherichia Coli 06/09/20 18:10 Stool Gram Stain - Final CT Of the abdomen and pelvis: hepatomegaly with diffuse fatthy infiltrate of the liver malrotation of the right kidney without evidence of obstructive uropathy thickening and irregularity of the right colon and terminal ileum suspecious for crohn's vs ileitis/colitis cannot be excluded. CT scan shows: crohn's vs colitis/ileitis. ASSESSMENT AND PLAN: This patient is a 50yoF with h/o RLS, hypothyroidism, HLD, who presents today after 5 days of diffuse abdominal pain. #Acute colitis/Ileitis: s/p IV antibiotics, levaquin/flagyl , dc'd patient home on ceftin and po flagyl , follow with GI , dr Dr Lr /jasno stool cx pending #Acute UTI >100K , dc'd LEVAQUIN, patient was discharged home on Ceftin and flagyl #Hypothyrodism : continue Levothyroxine 175 mg #Restless Leg Syndrome: on Pramipexole 1 mg continue #hx of Migraine: on Topiramate continue #Hyperlipidemia :Atorvostatin continue #DVT Px: Heparin
== END 2020-06-11 17:15 | disposition home or self-care (01) | DRG 245 ==
LOC: JER 19:36 → JERBED 06-09 06:04 → J5S 06-09 18:39
PROVIDERS: ADMIT Internal Medicine; ATTEND Internal Medicine
DX: K50.10 Crohn's disease of large intestine without complications (principal); N39.0 Urinary tract infection, site not specified; K52.9 Noninfective gastroenteritis and colitis, unspecified; I10 Essential (primary) hypertension; E78.5 Hyperlipidemia, unspecified; E66.9 Obesity, unspecified; Z68.32 Body mass index [BMI] 32.0-32.9, adult; B96.20 Unspecified Escherichia coli [E. coli] as the cause of diseases classified elsewhere; K76.0 Fatty (change of) liver, not elsewhere classified; G25.81 Restless legs syndrome; G43.909 Migraine, unspecified, not intractable, without status migrainosus; E03.9 Hypothyroidism, unspecified
CPT/HCPCS: 36415; 74177-TC; 80048; 80053; 81003; 82550; 83605; 83690; 84436; 84443; 84484; 85025; 85027; 85610; 85651; 87045; 87046; 87086; 87177; 87186; 87205; 87209; 87324; 87449; 93005; 93010; 99285-25; J0131; J1644; U0003

== ENCOUNTER 2020-11-30 15:38 | Inpatient (IN) | payer OTHER ==
[2020-11-30] MEDS ORDERED: SODIUM CHLORIDE 1,000 ML IV STA ×2 (16:12→17:44)
[2020-11-30] MEDS ORDERED: ACETAMINOPHEN 1000 MG/100 ML VIAL (NON FORMULARY) IVPB ONE (16:12)
[2020-11-30] MEDS ORDERED: ACETAMINOPHEN INJECTION 100 ML IVPB ONE (16:19)
[2020-11-30 16:57] LABS: BASO % 0.7 % (0-2.0); EOS % 1.5 % (0-4.5); HEMATOCRIT 42.9 % (32.4-45.2); LYMPH % 5.7 % (8-40); MCH 28.4 pg (25.7-33.7); MCHC 32.5 g/dl (32.0-36.0); MEAN CELL VOLUME 87.2 fl (80-96); MEAN PLT VOLUME 10.3 fl (7.5-11.1); MONO % 1.7 % (3.8-10.2); NEUT % 90.4 % (42.8-82.8); PLATELET COUNT 255 K/MM3 (134-434); RBC 4.92 M/mm3 (3.60-5.2); WHITE BLOOD COUNT 16.2 K/mm3 (4.0-10.0)
[2020-11-30 17:22] LABS: POTASSIUM 4.8 mmol/L (3.5-5.1)
[2020-11-30 17:25] LABS: CALCIUM 11.1 mg/dL (8.5-10.1)
[2020-11-30 17:26] LABS: ALBUMIN 4.6 g/dl (3.4-5.0); BLOOD UREA NITROGEN 27.7 mg/dL (7-18)
[2020-11-30 17:29] LABS: CREATININE 1.3 mg/dL (0.55-1.3)
[2020-11-30 17:30] LABS: BILIRUBIN,TOTAL 1.4 mg/dL (0.2-1); TOT PROT 8.6 g/dl (6.4-8.2)
[2020-11-30 18:17] LABS: EPI CELLS 23 /uL (0-25.1); HYALINE CASTS 0 /uL (0-3.1); PH,URINE 5.5 (5.0-8.0); URINE APPEARANCE CLOUDY; URINE BACTERIA >9,000 /uL (0-1359); URINE BILIRUBIN NEGATIVE (NEGATIVE); URINE COLOR YELLOW; URINE GLUCOSE (UA) NEGATIVE (NEGATIVE); URINE KETONE NEGATIVE (NEGATIVE); URINE LEUK ESTERASE 2+ (NEGATIVE); URINE NITRITE POSITIVE (NEGATIVE); URINE PROTEIN 2+ (NEGATIVE); URINE RBC 53 /uL (0-23.9); URINE UROBILINOGEN 0.2 mg/dL (0.2-1.0); URINE WBC 2499 /uL (0-25.8)
[2020-11-30] MEDS ORDERED: CEFTRIAXONE 1 GM in DEXTROSE 5%-WATER - 100 ML IVPB ONE (18:27)
[2020-11-30] MEDS ORDERED: CEFTRIAXONE 1 GM/50 ML BAG ONE (18:40)
[2020-11-30 18:47] LABS: PLATELET ESTIMATE NORMAL
[2020-11-30] MEDS ORDERED: KETOROLAC TROMETHAMINE 30 MG/1 ML VIAL IVPUSH ONE (20:36)
[2020-11-30] MEDS ORDERED: METOCLOPRAMIDE HCL INJECTION 10 MG/2 ML VIAL IVPUSH ONE (20:36)
[2020-11-30] MEDS ORDERED: METOCLOPRAMIDE HCL INJECTION 10 MG/2 ML VIAL ONE (20:45)
[2020-11-30] MEDS ORDERED: KETOROLAC TROMETHAMINE 30 MG/1 ML VIAL ONE (20:45)
[2020-11-30] MEDS ORDERED: SODIUM CHLORIDE 1,000 ML IV SCH (22:30)
[2020-12-01] MEDS ORDERED: ACETAMINOPHEN 325 MG TABLET (FP) PO ONE (00:06)
[2020-12-01 00:56] VITALS: BMI 33.3
[2020-12-01] MEDS ORDERED: SODIUM CHLORIDE 0.9% 500 ML INFUS.BAG IV ONE ×2 (01:44→05:35)
[2020-12-01] MEDS ORDERED: PIPERACILLIN/TAZOB 2.25 GM 2.25 GM in DEXTROSE 5%-WATER - 50 ML IVPB SCH ×2 (03:30→10:00)
[2020-12-01] MEDS ORDERED: PIPERACILLIN/TAZOBACTAM 2.25 GM VIAL IVPB ONE ×2 (04:04→09:52)
[2020-12-01] MEDS ORDERED: DEXTROSE 5%-WATER - 50 ML IVPB ONE ×4 (04:04→21:12)
[2020-12-01] MEDS ORDERED: CEFTRIAXONE 1 GM in DEXTROSE 5%-WATER - 50 ML IVPB SCH ×2 (05:14→10:00)
[2020-12-01] MEDS ORDERED: VANCOMYCIN/WATER 1,250 MG/250 ML BAG IVPB SCH ×2 (05:15→06:00)
[2020-12-01] MEDS ORDERED: SODIUM CHLORIDE 1,000 ML IV SCH ×2 (05:35→06:30)
[2020-12-01 06:33] LABS: CSF WBC 1
[2020-12-01] MEDS ORDERED: LEVOTHYROXINE NA 150 MCG TABLET PO SCH (07:00)
[2020-12-01 07:14] LABS: BASO % 0.4 % (0-2.0); EOS % 0.7 % (0-4.5); HEMATOCRIT 37.3 % (32.4-45.2); HEMOGLOBIN 12.3 GM/dL (10.7-15.3); LYMPH % 6.8 % (8-40); MCH 28.5 pg (25.7-33.7); MCHC 32.9 g/dl (32.0-36.0); MEAN CELL VOLUME 86.5 fl (80-96); MEAN PLT VOLUME 10.4 fl (7.5-11.1); NEUT % 86.1 % (42.8-82.8); PLATELET COUNT 195 K/MM3 (134-434); RBC 4.31 M/mm3 (3.60-5.2); WHITE BLOOD COUNT 26.5 K/mm3 (4.0-10.0)
[2020-12-01 07:28] LABS: CSF APPEARANCE CLEAR; CSF COLOR COLORLESS
[2020-12-01 07:32] LABS: POTASSIUM 3.9 mmol/L (3.5-5.1)
[2020-12-01 07:41] LABS: BF GLUCOSE (CSF ONLY) 73 mg/dL (40-70)
[2020-12-01 07:44] LABS: ALBUMIN 2.9 g/dl (3.4-5.0); BLOOD UREA NITROGEN 26.4 mg/dL (7-18); CALCIUM 8.3 mg/dL (8.5-10.1); MAGNESIUM 1.4 mg/dL (1.8-2.4)
[2020-12-01 07:47] LABS: CREATININE 1.7 mg/dL (0.55-1.3); PHOSPHOROUS 4.1 mg/dL (2.5-4.9)
[2020-12-01 07:48] LABS: BILIRUBIN,TOTAL 0.8 mg/dL (0.2-1)
[2020-12-01] MEDS ORDERED: TOPIRAMATE 25 MG TABLET PO SCH (10:00)
[2020-12-01] MEDS: MUPIROCIN 2% TOPICAL OINTMENT FOR DECOLONIZATION NS SCH ×2 (10:00→22:08)
[2020-12-01] MEDS ORDERED: ENOXAPARIN NA (PORCINE) 40 MG/0.4 ML DISP.SYRIN SQ SCH ×2 (10:00)
[2020-12-01] MEDS ORDERED: LEVOTHYROXINE SODIUM 100 MCG VIAL IVPUSH SCH ×2 (10:00)
[2020-12-01] MEDS ORDERED: LACTATED RINGERS SOLUTION 1,000 ML/1,000 ML INFUS.BAG IV SCH (10:45)
[2020-12-01 11:10] LABS: ANISOCYTOSIS 0; MACROCYTOSIS 0; PLATELET ESTIMATE NORMAL
[2020-12-01] MEDS: ACETAMINOPHEN 1000 MG/100 ML VIAL (NON FORMULARY) IVPB PRN ×2 (13:51→22:35)
[2020-12-01] MEDS: TOPIRAMATE 25 MG TABLET PO SCH ×2 (14:00→22:08)
[2020-12-01] MEDS ORDERED: PIPERACILLIN/TAZOBACTAM 3.375 GM VIAL IVPB ONE ×2 (15:59→21:11)
[2020-12-01] MEDS: PIPERACILLIN/TAZOB 3.375 GM 3.375 GM in DEXTROSE 5%-WATER - 50 ML IVPB SCH ×2 (16:01→21:17)
[2020-12-01] MEDS ORDERED: MAGNESIUM OXIDE 400 MG TABLET (FP) PO ONE (18:27)
[2020-12-01] MEDS ORDERED: CHLORHEXIDINE GLUCONATE 4% CLEANSER FOR DECOLONIZATION TP SCH (22:00)
[2020-12-02] MEDS ORDERED: PIPERACILLIN/TAZOB 2.25 GM 2.25 GM in DEXTROSE 5%-WATER - 50 ML IVPB SCH (02:00)
[2020-12-02] MEDS ORDERED: DEXTROSE 5%-WATER - 50 ML IVPB ONE ×4 (02:01→21:58)
[2020-12-02] MEDS ORDERED: PIPERACILLIN/TAZOBACTAM 3.375 GM VIAL IVPB ONE ×5 (02:01→21:58)
[2020-12-02] MEDS: PIPERACILLIN/TAZOB 3.375 GM 3.375 GM in DEXTROSE 5%-WATER - 50 ML IVPB SCH ×4 (02:03→22:09)
[2020-12-02] MEDS ORDERED: ACETAMINOPHEN 1000 MG/100 ML VIAL (NON FORMULARY) IVPB PRN (03:03)
[2020-12-02] MEDS: LACTATED RINGERS SOLUTION 1,000 ML/1,000 ML INFUS.BAG IV SCH ×2 (04:50→17:44)
[2020-12-02] MEDS ORDERED: VANCOMYCIN/WATER 1,250 MG/250 ML BAG IVPB SCH (06:00)
[2020-12-02] MEDS ORDERED: PT OWN MED DRAWER 7, Y5N ONE ×3 (09:15→22:20)
[2020-12-02] MEDS: ENOXAPARIN NA (PORCINE) 40 MG/0.4 ML DISP.SYRIN SQ SCH (09:24)
[2020-12-02] MEDS: TOPIRAMATE 25 MG TABLET PO SCH ×2 (09:30→22:09)
[2020-12-02 09:33] LABS: HEMATOCRIT 32.9 % (32.4-45.2); HEMOGLOBIN 10.8 GM/dL (10.7-15.3); MCH 28.7 pg (25.7-33.7); MCHC 32.9 g/dl (32.0-36.0); MEAN CELL VOLUME 87.2 fl (80-96); MEAN PLT VOLUME 10.4 fl (7.5-11.1); PLATELET COUNT 172 K/MM3 (134-434); RBC 3.77 M/mm3 (3.60-5.2); RDW 13.9 % (11.6-15.6); WHITE BLOOD COUNT 15.6 K/mm3 (4.0-10.0)
[2020-12-02 09:52] LABS: POTASSIUM 4.4 mmol/L (3.5-5.1)
[2020-12-02] MEDS ORDERED: LEVOTHYROXINE SODIUM 100 MCG VIAL IVPUSH SCH (10:00)
[2020-12-02 10:23] LABS: CALCIUM 8.8 mg/dL (8.5-10.1)
[2020-12-02 10:24] LABS: ALBUMIN 2.7 g/dl (3.4-5.0); BLOOD UREA NITROGEN 24.2 mg/dL (7-18)
[2020-12-02 10:26] LABS: CREATININE 1.7 mg/dL (0.55-1.3)
[2020-12-02 10:27] LABS: PHOSPHOROUS 3.1 mg/dL (2.5-4.9)
[2020-12-02 10:30] LABS: BILIRUBIN,TOTAL 0.6 mg/dL (0.2-1)
[2020-12-02] MEDS: ACETAMINOPHEN 325 MG TABLET (FP) PO PRN (17:29)
[2020-12-02 18:48] LABS: EPI CELLS 7 /uL (0-25.1); HYALINE CASTS 1 /uL (0-3.1); PH,URINE 8.5 (5.0-8.0); URINE APPEARANCE CLEAR; URINE BACTERIA 39 /uL (0-1359); URINE BILIRUBIN NEGATIVE (NEGATIVE); URINE COLOR YELLOW; URINE GLUCOSE (UA) NEGATIVE (NEGATIVE); URINE KETONE NEGATIVE (NEGATIVE); URINE LEUK ESTERASE NEGATIVE (NEGATIVE); URINE NITRITE NEGATIVE (NEGATIVE); URINE PROTEIN TRACE (NEGATIVE); URINE RBC 13 /uL (0-23.9); URINE UROBILINOGEN 0.2 mg/dL (0.2-1.0); URINE WBC 37 /uL (0-25.8)
[2020-12-02] MEDS: PRAMIPEXOLE DIHYDROCHLORIDE 1 MG TABLET PO SCH (22:09)
[2020-12-02] MEDS: ATORVASTATIN CA 20 MG TABLET (FP) PO SCH (22:09)
[2020-12-02] MEDS: MONTELUKAST NA 10 MG TABLET PO SCH (22:10)
[2020-12-03] MEDS ORDERED: DEXTROSE 5%-WATER - 50 ML IVPB ONE (02:08)
[2020-12-03] MEDS ORDERED: PIPERACILLIN/TAZOBACTAM 3.375 GM VIAL IVPB ONE (02:08)
[2020-12-03] MEDS: PIPERACILLIN/TAZOB 3.375 GM 3.375 GM in DEXTROSE 5%-WATER - 50 ML IVPB SCH (02:37)
[2020-12-03] MEDS: LEVOTHYROXINE NA 150 MCG TABLET PO SCH (06:57)
[2020-12-03] MEDS: LACTATED RINGERS SOLUTION 1,000 ML/1,000 ML INFUS.BAG IV SCH ×2 (06:57→22:27)
[2020-12-03 08:59] LABS: BASO % 0.5 % (0-2.0); EOS % 3.9 % (0-4.5); HEMATOCRIT 33.2 % (32.4-45.2); HEMOGLOBIN 11.1 GM/dL (10.7-15.3); LYMPH % 19.3 % (8-40); MCH 28.8 pg (25.7-33.7); MCHC 33.4 g/dl (32.0-36.0); MEAN CELL VOLUME 86.4 fl (80-96); MEAN PLT VOLUME 10.4 fl (7.5-11.1); NEUT % 70.3 % (42.8-82.8); PLATELET COUNT 203 K/MM3 (134-434); RBC 3.84 M/mm3 (3.60-5.2); RDW 14.1 % (11.6-15.6); WHITE BLOOD COUNT 10.9 K/mm3 (4.0-10.0)
[2020-12-03] MEDS ORDERED: PT OWN MED DRAWER 7, Y5N ONE (09:02)
[2020-12-03] MEDS: PATIENT'S OWN MEDICATION (NON-FORMULARY) (Rizatriptan Benzoate [Rizatriptan] 10 MG Tablet) PO PRN ×2 (09:23→13:04)
[2020-12-03] MEDS: TOPIRAMATE 25 MG TABLET PO SCH ×2 (09:23→22:23)
[2020-12-03] MEDS: ENOXAPARIN NA (PORCINE) 40 MG/0.4 ML DISP.SYRIN SQ SCH (09:24)
[2020-12-03 09:52] LABS: POTASSIUM 4.6 mmol/L (3.5-5.1)
[2020-12-03 09:54] LABS: CALCIUM 9.5 mg/dL (8.5-10.1)
[2020-12-03 09:55] LABS: MAGNESIUM 1.9 mg/dL (1.8-2.4)
[2020-12-03] MEDS ORDERED: DEXTROSE 5%-WATER 100 ML IVPB ONE (09:55)
[2020-12-03 09:58] LABS: CREATININE 1.7 mg/dL (0.55-1.3); PHOSPHOROUS 3.9 mg/dL (2.5-4.9)
[2020-12-03 10:00] LABS: BILIRUBIN,TOTAL 0.4 mg/dL (0.2-1); TOT PROT 6.8 g/dl (6.4-8.2)
[2020-12-03] MEDS ORDERED: CEFTRIAXONE 2 MG in DEXTROSE 5%-WATER - 50 ML IVPB SCH (10:00)
[2020-12-03] MEDS: CEFTRIAXONE 2 GM in DEXTROSE 5%-WATER 100 ML IVPB SCH (10:03)
[2020-12-03] MEDS: ACETAMINOPHEN 325 MG TABLET (FP) PO PRN (10:04)
[2020-12-03 14:20] LABS: HIV INTERPRETATION NEGATIVE (NEGATIVE)
[2020-12-03] MEDS: amLODIPine BESYLATE 5 MG TABLET (FP) PO SCH (18:06)
[2020-12-03] MEDS: PRAMIPEXOLE DIHYDROCHLORIDE 1 MG TABLET PO SCH (22:23)
[2020-12-03] MEDS: MONTELUKAST NA 10 MG TABLET PO SCH (22:23)
[2020-12-03] MEDS: ATORVASTATIN CA 20 MG TABLET (FP) PO SCH (22:24)
[2020-12-04] MEDS ORDERED: PT OWN MED DRAWER 7, Y5N ONE (01:33)
[2020-12-04] MEDS: PATIENT'S OWN MEDICATION (NON-FORMULARY) (Rizatriptan Benzoate [Rizatriptan] 10 MG Tablet) PO PRN ×3 (01:35→20:38)
[2020-12-04] MEDS: ACETAMINOPHEN 325 MG TABLET (FP) PO PRN (01:41)
[2020-12-04] MEDS: LACTATED RINGERS SOLUTION 1,000 ML/1,000 ML INFUS.BAG IV SCH (04:59)
[2020-12-04] MEDS: LEVOTHYROXINE NA 150 MCG TABLET PO SCH (06:34)
[2020-12-04] MEDS ORDERED: KETOROLAC TROMETHAMINE 30 MG/1 ML VIAL IM ONE (08:19)
[2020-12-04] MEDS ORDERED: PROCHLORPERAZINE MALEATE 5 MG TABLET PO ONE (08:19)
[2020-12-04 08:58] LABS: HEMATOCRIT 33.6 % (32.4-45.2); MCH 28.2 pg (25.7-33.7); MCHC 32.7 g/dl (32.0-36.0); MEAN CELL VOLUME 86.3 fl (80-96); MEAN PLT VOLUME 9.8 fl (7.5-11.1); PLATELET COUNT 208 K/MM3 (134-434); RBC 3.89 M/mm3 (3.60-5.2); RDW 14.1 % (11.6-15.6); WHITE BLOOD COUNT 7.6 K/mm3 (4.0-10.0)
[2020-12-04] MEDS ORDERED: DEXTROSE 5%-WATER 100 ML IVPB ONE (09:04)
[2020-12-04] MEDS: TOPIRAMATE 25 MG TABLET PO SCH ×2 (09:10→21:21)
[2020-12-04] MEDS: amLODIPine BESYLATE 5 MG TABLET (FP) PO SCH (09:10)
[2020-12-04] MEDS: CEFTRIAXONE 2 GM in DEXTROSE 5%-WATER 100 ML IVPB SCH (09:10)
[2020-12-04] MEDS: ENOXAPARIN NA (PORCINE) 40 MG/0.4 ML DISP.SYRIN SQ SCH (09:10)
[2020-12-04 09:21] LABS: POTASSIUM 4.2 mmol/L (3.5-5.1)
[2020-12-04 09:29] LABS: CREATININE 1.3 mg/dL (0.55-1.3)
[2020-12-04 09:30] LABS: ALBUMIN 2.8 g/dl (3.4-5.0); BILIRUBIN,TOTAL 0.4 mg/dL (0.2-1); BLOOD UREA NITROGEN 16.3 mg/dL (7-18); TOT PROT 6.3 g/dl (6.4-8.2)
[2020-12-04 09:32] LABS: CALCIUM 9.6 mg/dL (8.5-10.1)
[2020-12-04] MEDS: SODIUM CHLORIDE 0.45% 1,000 ML IV SCH (14:19)
[2020-12-04] MEDS: PRAMIPEXOLE DIHYDROCHLORIDE 1 MG TABLET PO SCH (21:20)
[2020-12-04] MEDS: ATORVASTATIN CA 20 MG TABLET (FP) PO SCH (21:20)
[2020-12-04] MEDS: MONTELUKAST NA 10 MG TABLET PO SCH (21:21)
[2020-12-05] MEDS: SODIUM CHLORIDE 0.45% 1,000 ML IV SCH (04:07)
[2020-12-05] MEDS: LEVOTHYROXINE NA 150 MCG TABLET PO SCH (06:15)
[2020-12-05] MEDS ORDERED: PT OWN MED DRAWER 7, Y5N ONE (06:17)
[2020-12-05] MEDS: PATIENT'S OWN MEDICATION (NON-FORMULARY) (Rizatriptan Benzoate [Rizatriptan] 10 MG Tablet) PO PRN (06:18)
[2020-12-05] MEDS ORDERED: KETOROLAC TROMETHAMINE 30 MG/1 ML VIAL IM ONE (08:24)
[2020-12-05] MEDS ORDERED: PROCHLORPERAZINE MALEATE 5 MG TABLET PO ONE (08:24)
[2020-12-05] MEDS: CEFTRIAXONE 2 GM in DEXTROSE 5%-WATER 100 ML IVPB SCH (10:24)
[2020-12-05] MEDS: TOPIRAMATE 25 MG TABLET PO SCH ×2 (10:24→21:00)
[2020-12-05] MEDS: amLODIPine BESYLATE 5 MG TABLET (FP) PO SCH (10:25)
[2020-12-05] MEDS: ENOXAPARIN NA (PORCINE) 40 MG/0.4 ML DISP.SYRIN SQ SCH (10:25)
[2020-12-05 13:01] LABS: POTASSIUM 4.5 mmol/L (3.5-5.1)
[2020-12-05 13:08] LABS: BLOOD UREA NITROGEN 20.5 mg/dL (7-18)
[2020-12-05 13:10] LABS: CALCIUM 10.1 mg/dL (8.5-10.1); CREATININE 1.3 mg/dL (0.55-1.3)
[2020-12-05] MEDS ORDERED: PROCHLORPERAZINE MALEATE 5 MG TABLET PO PRN (18:54)
[2020-12-05] MEDS ORDERED: KETOROLAC TROMETHAMINE 30 MG/1 ML VIAL IM PRN (18:57)
[2020-12-05] MEDS ORDERED: PANTOPRAZOLE 40 MG TABLET PO ONE (20:10)
[2020-12-05] MEDS: PRAMIPEXOLE DIHYDROCHLORIDE 1 MG TABLET PO SCH (21:00)
[2020-12-05] MEDS: MONTELUKAST NA 10 MG TABLET PO SCH (21:00)
[2020-12-05] MEDS: ATORVASTATIN CA 20 MG TABLET (FP) PO SCH (21:00)
[2020-12-06] MEDS: LEVOTHYROXINE NA 150 MCG TABLET PO SCH (06:15)
[2020-12-06] MEDS ORDERED: ACETAMINOPHEN/CAFFEINE/BUTALBITAL 1 TAB PO ONE (08:01)
[2020-12-06] MEDS ORDERED: PANTOPRAZOLE 40 MG TABLET PO SCH (10:00)
[2020-12-06] MEDS: CEFTRIAXONE 2 GM in DEXTROSE 5%-WATER 100 ML IVPB SCH (10:48)
[2020-12-06] MEDS: amLODIPine BESYLATE 5 MG TABLET (FP) PO SCH (10:54)
[2020-12-06] MEDS: TOPIRAMATE 25 MG TABLET PO SCH (10:54)
[2020-12-06] MEDS: ENOXAPARIN NA (PORCINE) 40 MG/0.4 ML DISP.SYRIN SQ SCH (10:54)
[2020-12-06 11:14] LABS: POTASSIUM 4.4 mmol/L (3.5-5.1)
[2020-12-06 11:15] LABS: CALCIUM 9.5 mg/dL (8.5-10.1)
[2020-12-06 11:17] LABS: BLOOD UREA NITROGEN 26.2 mg/dL (7-18)
[2020-12-06 11:19] LABS: CREATININE 1.4 mg/dL (0.55-1.3)
[2020-12-06] MEDS ORDERED: CEFTRIAXONE 2 GM in DEXTROSE 5%-WATER 100 ML IVPB ONE (11:30)
[2020-12-06] MEDS ORDERED: DEXTROSE 5%-WATER 100 ML IVPB ONE (11:53)
[2020-12-06 12:38] VITALS: BP 117/75; PULSE 70; TEMP 97.5
== END 2020-12-06 14:10 | disposition home or self-care (01) | DRG 720 ==
LOC: JER 15:38 → JERBED 18:30 → J8W 23:37 → JICU 12-01 04:03 → J5S 12-02 03:24
PROVIDERS: ADMIT Internal Medicine
PROC: 009U3ZX Drainage of Spinal Canal, Percutaneous Approach, Diagnostic (ICD-10-PCS; principal; 2020-12-01)
DX: A41.51 Sepsis due to Escherichia coli [E. coli] (principal); E11.9 Type 2 diabetes mellitus without complications; I10 Essential (primary) hypertension; E03.9 Hypothyroidism, unspecified; E78.5 Hyperlipidemia, unspecified; G25.81 Restless legs syndrome; G43.909 Migraine, unspecified, not intractable, without status migrainosus; E66.9 Obesity, unspecified; Z68.33 Body mass index [BMI] 33.0-33.9, adult; I95.9 Hypotension, unspecified; R00.0 Tachycardia, unspecified; N17.9 Acute kidney failure, unspecified; R33.9 Retention of urine, unspecified; N39.0 Urinary tract infection, site not specified; R41.82 Altered mental status, unspecified; G93.41 Metabolic encephalopathy; E83.52 Hypercalcemia; R65.21 Severe sepsis with septic shock; F05 Delirium due to known physiological condition
CPT/HCPCS: 36415; 70450-TC; 71045-TC-FY; 71046-TC-FY; 76775-TC; 76856-TC; 80048; 80053; 81003; 82140; 82436; 82565; 82945; 82962; 83605; 83735; 84100; 84133; 84157; 84300; 85025; 85027; 86140; 87040; 87070; 87086; 87186; 87205; 87389; 87804; 99285-25; C9803; J0131; U0003

== ENCOUNTER 2021-06-23 19:02 | Emergency (ER) | payer OTHER ==
[2021-06-23 19:13] VITALS: BMI 31.6
[2021-06-23] MEDS ORDERED: ACETAMINOPHEN 1000 MG/100 ML VIAL (NON FORMULARY) IVPB ONE (20:09)
[2021-06-23] MEDS ORDERED: ACETAMINOPHEN INJECTION 100 ML IVPB ONE (20:24)
[2021-06-23 20:57] LABS: EPI CELLS >36 /uL (0-25.1); HYALINE CASTS 0 /uL (0-3.1); URINE APPEARANCE CLOUDY; URINE BACTERIA 3750 /uL (0-1359); URINE BILIRUBIN NEGATIVE (NEGATIVE); URINE COLOR YELLOW; URINE GLUCOSE (UA) NEGATIVE (NEGATIVE); URINE KETONE NEGATIVE (NEGATIVE); URINE LEUK ESTERASE NEGATIVE (NEGATIVE); URINE NITRITE NEGATIVE (NEGATIVE); URINE PROTEIN 2+ (NEGATIVE); URINE RBC 4 /uL (0-23.9); URINE UROBILINOGEN 0.2 mg/dL (0.2-1.0)
[2021-06-23 21:58] LABS: BASO % 0.5 % (0-2.0); EOS % 1.9 % (0-4.5); HEMOGLOBIN 13.5 GM/dL (10.7-15.3); LYMPH % 11.2 % (8-40); MCH 29.4 pg (25.7-33.7); MCHC 33.6 g/dl (32.0-36.0); MEAN CELL VOLUME 87.5 fl (80-96); MEAN PLT VOLUME 10.4 fl (7.5-11.1); MONO % 11.4 % (3.8-10.2); PLATELET COUNT 202 10^3/uL (134-434); RBC 4.58 M/mm3 (3.60-5.2); RDW 16.1 % (11.6-15.6); WHITE BLOOD COUNT 7.9 K/mm3 (4.0-10.0)
[2021-06-23 22:11] VITALS: BP 110/55; PULSE 69; TEMP 98.8
[2021-06-23 22:19] LABS: CALCIUM 9.1 mg/dL (8.5-10.1)
[2021-06-23 22:20] LABS: ALBUMIN 3.9 g/dl (3.4-5.0); BLOOD UREA NITROGEN 21.5 mg/dL (7-18)
[2021-06-23 22:23] LABS: CREATININE 1.4 mg/dL (0.55-1.3)
[2021-06-23 22:25] LABS: BILIRUBIN,TOTAL 0.3 mg/dL (0.2-1)
[2021-06-23 22:58] LABS: URINE WBC 161.2 /uL (0-25.8)
== END 2021-06-23 23:09 | disposition home or self-care (01) ==
LOC: JER 19:02
PROC: 3E033GC Introduction of Other Therapeutic Substance into Peripheral Vein, Percutaneous Approach (ICD-10-PCS; principal; 2021-06-23)
DX: M54.5 Low back pain (principal); R50.9 Fever, unspecified
CPT/HCPCS: 36415; 71045-TC-FY; 80053; 81003; 85025; 87040; 87086; 87804; 96374; 99284-25; C9803; J0131; U0003; U0005

== ENCOUNTER 2021-08-01 14:06 | Emergency (ER) | payer OTHER ==
[2021-08-01 14:32] VITALS: BMI 31.1
[2021-08-01] MEDS ORDERED: SODIUM CHLORIDE 1,000 ML IV STA (15:52)
[2021-08-01] MEDS ORDERED: ONDANSETRON 4 MG/2 ML VIAL IVPUSH ONE (15:52)
[2021-08-01] MEDS ORDERED: FAMOTIDINE 20 MG/50 ML IVPB 20 MG/50 ML MG IVPB ONE ×2 (15:52→16:13)
[2021-08-01] MEDS ORDERED: ONDANSETRON 4 MG/2 ML VIAL ONE (16:13)
[2021-08-01 17:17] LABS: BASO % 0.3 % (0-2.0); EOS % 3.6 % (0-4.5); HEMATOCRIT 40.7 % (32.4-45.2); HEMOGLOBIN 13.3 GM/dL (10.7-15.3); LYMPH % 24.9 % (8-40); MCH 28.5 pg (25.7-33.7); MCHC 32.8 g/dl (32.0-36.0); MEAN CELL VOLUME 86.9 fl (80-96); MEAN PLT VOLUME 9.8 fl (7.5-11.1); MONO % 8.1 % (3.8-10.2); NEUT % 63.1 % (42.8-82.8); PLATELET COUNT 246 10^3/uL (134-434); RBC 4.68 M/mm3 (3.60-5.2); RDW 14.5 % (11.6-15.6); WHITE BLOOD COUNT 7.8 K/mm3 (4.0-10.0)
[2021-08-01 17:38] LABS: ALBUMIN 3.7 g/dl (3.4-5.0); CALCIUM 9.6 mg/dL (8.5-10.1)
[2021-08-01 17:41] LABS: CREATININE 1.5 mg/dL (0.55-1.3)
[2021-08-01 17:43] LABS: BILIRUBIN,TOTAL 0.5 mg/dL (0.2-1)
[2021-08-01 18:22] VITALS: BP 107/66; PULSE 81; TEMP 97.6
== END 2021-08-01 18:22 | disposition home or self-care (01) ==
LOC: JER 14:06
PROC: 3E033GC Introduction of Other Therapeutic Substance into Peripheral Vein, Percutaneous Approach (ICD-10-PCS; principal; 2021-08-01)
PROC: 3E033GC Introduction of Other Therapeutic Substance into Peripheral Vein, Percutaneous Approach (ICD-10-PCS; 2021-08-01)
PROC: 3E0337Z Introduction of Electrolytic and Water Balance Substance into Peripheral Vein, Percutaneous Approach (ICD-10-PCS; 2021-08-01)
DX: K52.9 Noninfective gastroenteritis and colitis, unspecified (principal)
CPT/HCPCS: 36415; 80053; 83690; 85025; 96361; 96374; 96375; 99284-25; C9803; U0003; U0005

== ENCOUNTER 2021-09-13 00:33 | Observation (INO) | payer OTHER ==
[2021-09-13 03:37] LABS: BASO % 0.9 % (0-2.0); EOS % 3.7 % (0-4.5); HEMATOCRIT 38.9 % (32.4-45.2); HEMOGLOBIN 12.9 GM/dL (10.7-15.3); MCH 29.2 pg (25.7-33.7); MEAN CELL VOLUME 88.3 fl (80-96); MEAN PLT VOLUME 9.5 fl (7.5-11.1); MONO % 5.7 % (3.8-10.2); NEUT % 58.7 % (42.8-82.8); PLATELET COUNT 240 10^3/uL (134-434); WHITE BLOOD COUNT 9.6 K/mm3 (4.0-10.0)
[2021-09-13 03:58] LABS: ALBUMIN 3.9 g/dl (3.4-5.0); BLOOD UREA NITROGEN 28.9 mg/dL (7-18); CALCIUM 9.1 mg/dL (8.5-10.1)
[2021-09-13 03:59] LABS: CREATININE 1.4 mg/dL (0.55-1.3)
[2021-09-13 04:04] LABS: BILIRUBIN,TOTAL 0.4 mg/dL (0.2-1); TOT PROT 7.9 g/dl (6.4-8.2)
[2021-09-13] MEDS ORDERED: ASPIRIN 81 MG CHEWABLE TABLETS PO ONE (04:18)
[2021-09-13] MEDS ORDERED: ASPIRIN 81 MG CHEWABLE TABLETS ONE ×2 (04:22→10:53)
[2021-09-13] MEDS ORDERED: LEVOTHYROXINE NA 125 MCG TABLET (FP) PO SCH (07:00)
[2021-09-13] MEDS ORDERED: LEVOTHYROXINE NA 25 MCG TABLET (FP) ONE (07:29)
[2021-09-13] MEDS ORDERED: HEPARIN NA (PORCINE) 5,000 UNITS/ML 1ML VIAL ONE ×3 (07:29→21:53)
[2021-09-13] MEDS: HEPARIN NA (PORCINE) 5,000 UNITS/ML 1ML VIAL SQ SCH ×3 (07:35→22:02)
[2021-09-13 08:18] LABS: BLOOD UREA NITROGEN 28.7 mg/dL (7-18)
[2021-09-13 08:19] LABS: ALBUMIN 3.3 g/dl (3.4-5.0); CALCIUM 8.5 mg/dL (8.5-10.1); MAGNESIUM 2.2 mg/dL (1.8-2.4)
[2021-09-13 08:22] LABS: BILIRUBIN,TOTAL 0.5 mg/dL (0.2-1); CREATININE 1.3 mg/dL (0.55-1.3); PHOSPHOROUS 3.6 mg/dL (2.5-4.9); TOT PROT 7.5 g/dl (6.4-8.2)
[2021-09-13] MEDS: TOPIRAMATE 25 MG TABLET PO SCH ×2 (10:00→22:47)
[2021-09-13] MEDS: ASPIRIN 81 MG CHEWABLE TABLETS PO SCH (10:00)
[2021-09-13] MEDS: PRAMIPEXOLE DIHYDROCHLORIDE 1.5 MG TABLET PO SCH (10:00)
[2021-09-13] MEDS ORDERED: FUROSEMIDE 40 MG TABLET (FP) PO SCH (10:00)
[2021-09-13] MEDS ORDERED: TICAGRELOR 60 MG TABLET PO SCH (10:00)
[2021-09-13] MEDS: MONTELUKAST NA 10 MG TABLET PO SCH (10:00)
[2021-09-13] MEDS: CHOLECALCIFEROL (VIT D3) 1,000 UNIT (25 MCG) TABLET PO SCH (10:00)
[2021-09-13] MEDS ORDERED: FUROSEMIDE 40 MG TABLET (FP) ONE (10:54)
[2021-09-13] MEDS ORDERED: TOPIRAMATE 25 MG TABLET ONE ×2 (10:54→22:31)
[2021-09-13] MEDS ORDERED: MIRTAZAPINE 15 MG TABLET (FP) ONE (10:54)
[2021-09-13] MEDS ORDERED: CHOLECALCIFEROL (VIT D3) 1,000 UNIT (25 MCG) TABLET ONE (10:55)
[2021-09-13] MEDS ORDERED: MONTELUKAST NA 10 MG TABLET ONE (10:56)
[2021-09-13] MEDS ORDERED: FUROSEMIDE 20 MG TABLET (FP) PO SCH (12:45)
[2021-09-13 14:37] LABS: BASO % 0.8 % (0-2.0); EOS % 4.3 % (0-4.5); HEMATOCRIT 37.2 % (32.4-45.2); HEMOGLOBIN 12.4 GM/dL (10.7-15.3); LYMPH % 31.5 % (8-40); MCH 29.5 pg (25.7-33.7); MCHC 33.2 g/dl (32.0-36.0); MEAN CELL VOLUME 88.6 fl (80-96); MEAN PLT VOLUME 9.9 fl (7.5-11.1); MONO % 4.8 % (3.8-10.2); NEUT % 58.6 % (42.8-82.8); PLATELET COUNT 259 10^3/uL (134-434); RDW 14.8 % (11.6-15.6); WHITE BLOOD COUNT 7.6 K/mm3 (4.0-10.0)
[2021-09-13] MEDS ORDERED: ATORVASTATIN CA 80 MG TABLET (FP) PO SCH (22:00)
[2021-09-13] MEDS ORDERED: TICAGRELOR 90 MG TABLET PO ONE (22:30)
[2021-09-13] MEDS ORDERED: ATORVASTATIN CA 80 MG TABLET (FP) ONE (22:31)
[2021-09-13] MEDS: TICAGRELOR 90 MG TABLET PO SCH (22:47)
[2021-09-14 02:14] VITALS: BMI 31.6
[2021-09-14] MEDS: HEPARIN NA (PORCINE) 5,000 UNITS/ML 1ML VIAL SQ SCH ×2 (06:04→13:17)
[2021-09-14 06:21] VITALS: TEMP 97.8
[2021-09-14 07:42] LABS: BASO % 0.8 % (0-2.0); EOS % 3.7 % (0-4.5); HEMATOCRIT 38.1 % (32.4-45.2); HEMOGLOBIN 12.4 GM/dL (10.7-15.3); LYMPH % 40.3 % (8-40); MCH 29.2 pg (25.7-33.7); MCHC 32.5 g/dl (32.0-36.0); MEAN PLT VOLUME 10.3 fl (7.5-11.1); MONO % 5.8 % (3.8-10.2); NEUT % 49.4 % (42.8-82.8); PLATELET COUNT 226 10^3/uL (134-434); RBC 4.23 M/mm3 (3.60-5.2); RDW 14.9 % (11.6-15.6); WHITE BLOOD COUNT 8.2 K/mm3 (4.0-10.0)
[2021-09-14] MEDS ORDERED: PT OWN MED DRAWER 7, Y5N ONE (07:46)
[2021-09-14 07:52] LABS: ALBUMIN 3.5 g/dl (3.4-5.0); CALCIUM 9.3 mg/dL (8.5-10.1)
[2021-09-14 07:53] LABS: BLOOD UREA NITROGEN 31.7 mg/dL (7-18); MAGNESIUM 2.3 mg/dL (1.8-2.4)
[2021-09-14 07:56] LABS: CREATININE 1.6 mg/dL (0.55-1.3)
[2021-09-14 07:57] LABS: BILIRUBIN,TOTAL 0.5 mg/dL (0.2-1); TOT PROT 7.1 g/dl (6.4-8.2)
[2021-09-14] MEDS: CHOLECALCIFEROL (VIT D3) 1,000 UNIT (25 MCG) TABLET PO SCH (09:18)
[2021-09-14] MEDS: ASPIRIN 81 MG CHEWABLE TABLETS PO SCH (09:18)
[2021-09-14] MEDS: MONTELUKAST NA 10 MG TABLET PO SCH (09:19)
[2021-09-14] MEDS: TOPIRAMATE 25 MG TABLET PO SCH (09:19)
[2021-09-14] MEDS: PRAMIPEXOLE DIHYDROCHLORIDE 1.5 MG TABLET PO SCH (09:20)
[2021-09-14] MEDS: TICAGRELOR 90 MG TABLET PO SCH (09:24)
[2021-09-14] MEDS ORDERED: FUROSEMIDE 20 MG TABLET (FP) PO SCH (10:00)
[2021-09-14] MEDS ORDERED: LEVOTHYROXINE SODIUM 100 MCG VIAL IVPUSH SCH (10:00)
[2021-09-14] MEDS ORDERED: metoPROLOL SUCCINATE 25 MG TAB.SR.24H (FP) PO SCH (10:00)
[2021-09-14 11:15] VITALS: BP 100/60; PULSE 57
[2021-09-14] MEDS ORDERED: CHOLECALCIFEROL (VIT D3) 1,000 UNIT (25 MCG) TABLET PO SCH (11:36)
[2021-09-15] MEDS ORDERED: LEVOTHYROXINE NA 150 MCG TABLET PO SCH (07:00)
[2021-09-15] MEDS ORDERED: SACUBITRIL/VALSARTAN 24 MG-26 MG TABLET PO SCH (10:00)
[2021-09-15] MEDS ORDERED: metoPROLOL SUCCINATE 25 MG TAB.SR.24H (FP) PO SCH (10:00)
== END 2021-09-14 15:28 | disposition home or self-care (01) ==
LOC: JER 00:33 → JERBED 04:13 → INTOOBSV 04:13 → UNDOADMOB 04:13 → JERBED 10:55 → J4W 09-14 01:31
PROVIDERS: ATTEND Nurse Practitioner Acute Care
PROC: 3E033GC Introduction of Other Therapeutic Substance into Peripheral Vein, Percutaneous Approach (ICD-10-PCS; principal; 2021-09-13)
DX: I25.10 Atherosclerotic heart disease of native coronary artery without angina pectoris (principal); I11.9 Hypertensive heart disease without heart failure; R00.1 Bradycardia, unspecified; E03.9 Hypothyroidism, unspecified; E78.5 Hyperlipidemia, unspecified; R73.03 Prediabetes; F32.9 Major depressive disorder, single episode, unspecified; G25.81 Restless legs syndrome; G43.909 Migraine, unspecified, not intractable, without status migrainosus; G47.33 Obstructive sleep apnea (adult) (pediatric); I25.2 Old myocardial infarction; R07.9 Chest pain, unspecified; Z98.61 Coronary angioplasty status; E78.00 Pure hypercholesterolemia, unspecified; E07.9 Disorder of thyroid, unspecified; N17.9 Acute kidney failure, unspecified; E66.8 Other obesity; Z68.31 Body mass index [BMI] 31.0-31.9, adult; H81.10 Benign paroxysmal vertigo, unspecified ear; K52.9 Noninfective gastroenteritis and colitis, unspecified; R77.8 Other specified abnormalities of plasma proteins; R50.9 Fever, unspecified; D25.9 Leiomyoma of uterus, unspecified; I95.9 Hypotension, unspecified; K50.00 Crohn's disease of small intestine without complications; J11.1 Influenza due to unidentified influenza virus with other respiratory manifestations; E87.2 Acidosis; D72.829 Elevated white blood cell count, unspecified; R11.2 Nausea with vomiting, unspecified; N39.0 Urinary tract infection, site not specified; R79.89 Other specified abnormal findings of blood chemistry; Z41.9 Encounter for procedure for purposes other than remedying health state, unspecified
CPT/HCPCS: 36415; 71046-TC-FY; 80053; 80061; 82550; 82553; 83036; 83735; 84100; 84132; 84439; 84443; 84479; 84484; 85025; 93005; 93010; 93306-TC; 96374; 99285-25; C9803; G0378; J1644; U0003; U0005

== ENCOUNTER 2021-11-20 08:19 | Inpatient (IN) | payer OTHER ==
[2021-11-20] MEDS ORDERED: SODIUM CHLORIDE 0.9% 500 ML INFUS.BAG IV ONE (08:48)
[2021-11-20 08:50] VITALS: BMI 31.2
[2021-11-20] MEDS ORDERED: ONDANSETRON 4 MG/2 ML VIAL IVPUSH ONE (08:50)
[2021-11-20] MEDS ORDERED: ONDANSETRON 4 MG/2 ML VIAL ONE (09:02)
[2021-11-20 09:24] LABS: BASO % 0.9 % (0-2.0); EOS % 2.3 % (0-4.5); HEMATOCRIT 40.7 % (32.4-45.2); HEMOGLOBIN 12.9 GM/dL (10.7-15.3); LYMPH % 40.8 % (8-40); MCH 28.6 pg (25.7-33.7); MCHC 31.6 g/dl (32.0-36.0); MEAN CELL VOLUME 90.4 fl (80-96); MONO % 3.9 % (3.8-10.2); NEUT % 52.1 % (42.8-82.8); PLATELET COUNT 365 10^3/uL (134-434); RBC 4.51 M/mm3 (3.60-5.2); RDW 13.9 % (11.6-15.6); WHITE BLOOD COUNT 11.3 K/mm3 (4.0-10.0)
[2021-11-20 09:47] LABS: CHLORIDE 111 mmol/L (98-107); SODIUM 142 mmol/L (136-145)
[2021-11-20 09:51] LABS: CALCIUM 9.4 mg/dL (8.5-10.1)
[2021-11-20 09:52] LABS: ANION GAP 9 MMOL/L (8-16); BLOOD UREA NITROGEN 21.4 mg/dL (7-18); CO2 21 mmol/L (21-32); GLUCOSE,RANDOM 138 mg/dL (74-106)
[2021-11-20 09:54] LABS: CREATININE 1.4 mg/dL (0.55-1.3); SGOT/AST 19 U/L (15-37); SGPT/ALT 37 U/L (13-61)
[2021-11-20 09:56] LABS: BILIRUBIN,TOTAL 0.4 mg/dL (0.2-1); TOT PROT 7.6 g/dl (6.4-8.2)
[2021-11-20 09:58] LABS: ALK PHOS 85 U/L (45-117)
[2021-11-20 10:42] LABS: VENOUS BASE EXCESS -6.9 mmol/L (-2-2); VENOUS O2 SATURATION 75.5 % (70-80); VENOUS PCO2 43.9 mmHg (38-52); VENOUS PH 7.271 (7.310-7.410)
[2021-11-20 11:11] LABS: ALBUMIN 3.7 g/dl (3.4-5.0); BLOOD UREA NITROGEN 21.2 mg/dL (7-18); CALCIUM 8.8 mg/dL (8.5-10.1)
[2021-11-20 11:13] LABS: CREATININE 1.2 mg/dL (0.55-1.3)
[2021-11-20 11:15] LABS: INR 1.08 (0.83-1.09); PROTHROMBIN TIME (PATIENT) 12.4 SEC (9.7-13.0)
[2021-11-20 11:16] LABS: BILIRUBIN,TOTAL 0.2 mg/dL (0.2-1); TOT PROT 6.8 g/dl (6.4-8.2)
[2021-11-20 11:18] LABS: ACTIVATED PTT 27.7 SECONDS (25.2-36.5)
[2021-11-20 11:22] LABS: EPI CELLS 7 /uL (0-25.1); HYALINE CASTS 1 /uL (0-3.1); URINE APPEARANCE CLEAR; URINE BACTERIA 10 /uL (0-1359); URINE BILIRUBIN NEGATIVE (NEGATIVE); URINE COLOR YELLOW; URINE GLUCOSE (UA) NEGATIVE (NEGATIVE); URINE KETONE NEGATIVE (NEGATIVE); URINE LEUK ESTERASE NEGATIVE (NEGATIVE); URINE NITRITE NEGATIVE (NEGATIVE); URINE PROTEIN 1+ (NEGATIVE); URINE RBC 1 /uL (0-23.9); URINE UROBILINOGEN 0.2 mg/dL (0.2-1.0); URINE WBC 2 /uL (0-25.8)
[2021-11-20 11:54] LABS: URINE BARBITURATES NEGATIVE (NEGATIVE)
[2021-11-20 11:55] LABS: PHENCYCLIDINE,URINE NEGATIVE (NEGATIVE); URINE BENZODIAZEPINES NEGATIVE (NEGATIVE)
[2021-11-20 11:57] LABS: COCAINE, UR NEGATIVE (NEGATIVE); OPIATES, URI NEGATIVE (NEGATIVE); URINE AMPHETAMINES NEGATIVE (NEGATIVE)
[2021-11-20 12:05] LABS: METHADONE, UR NEGATIVE (NEGATIVE)
[2021-11-20] MEDS ORDERED: ASPIRIN COATED 81 MG TABLET.EC PO ONE (12:07)
[2021-11-20] MEDS ORDERED: THIAMINE HCL 200 MG/2 ML VIAL IVPB ONE (12:07)
[2021-11-20] MEDS ORDERED: HEPARIN NA (PORCINE) 5,000 UNITS/ML 1ML VIAL IVPUSH PRN ×2 (12:07)
[2021-11-20] MEDS ORDERED: HEPARIN SOD,PORK IN 0.45% NACL 25,000 UNITS/500 ML INFUS.BAG IVPB SCH (12:15)
[2021-11-20] MEDS ORDERED: ASPIRIN COATED 81 MG TABLET.EC ONE (12:21)
[2021-11-20] MEDS ORDERED: THIAMINE HCL 200 MG/2 ML VIAL ONE (12:21)
[2021-11-20] MEDS ORDERED: HEPARIN NA (PORCINE) 5,000 UNITS/ML 1ML VIAL ONE (13:36)
[2021-11-20] MEDS ORDERED: THIAMINE HCL 100 MG TABLET (FP) PO SCH (13:45)
[2021-11-20] MEDS ORDERED: ASPIRIN 81 MG CHEWABLE TABLETS PO ONE (14:00)
[2021-11-20 16:27] VITALS: TEMP 97.9
[2021-11-20] MEDS ORDERED: DEXTROSE 50%-WATER 25 GM/50 ML DISP.SYRIN ONE (18:12)
[2021-11-20] MEDS ORDERED: DEXTROSE 50%-WATER - 25 GM/50 ML VIAL IVPUSH ONE (18:15)
[2021-11-20 18:30] VITALS: BP 117/74; PULSE 79
[2021-11-20] MEDS ORDERED: MONTELUKAST NA 10 MG TABLET PO SCH (22:00)
[2021-11-20] MEDS ORDERED: PRAMIPEXOLE DIHYDROCHLORIDE 1.5 MG TABLET PO SCH (22:00)
[2021-11-20] MEDS ORDERED: TOPIRAMATE 25 MG TABLET PO SCH (22:00)
[2021-11-21] MEDS ORDERED: LEVOTHYROXINE NA 125 MCG TABLET (FP) PO SCH (07:00)
[2021-11-21] MEDS ORDERED: ATORVASTATIN CA 80 MG TABLET (FP) PO SCH (10:00)
[2021-11-21] MEDS ORDERED: TICAGRELOR 90 MG TABLET PO SCH ×2 (10:00→22:00)
[2021-11-21] MEDS ORDERED: metoPROLOL SUCCINATE 25 MG TAB.SR.24H (FP) PO SCH (10:00)
[2021-11-21] MEDS ORDERED: PANTOPRAZOLE 40 MG TABLET PO SCH (10:00)
[2021-11-21] MEDS ORDERED: SACUBITRIL/VALSARTAN 24 MG-26 MG TABLET PO SCH (10:00)
[2021-11-21] MEDS ORDERED: FUROSEMIDE 40 MG TABLET (FP) PO SCH (10:00)
== END 2021-11-20 18:40 | disposition short-term general hospital (02) | DRG 198 ==
LOC: JER 08:19 → JERBED 12:10
PROVIDERS: ADMIT Internal Medicine; ATTEND Internal Medicine
DX: R07.89 Other chest pain (principal); I24.9 Acute ischemic heart disease, unspecified; I11.0 Hypertensive heart disease with heart failure; I50.9 Heart failure, unspecified; E03.9 Hypothyroidism, unspecified; F10.120 Alcohol abuse with intoxication, uncomplicated; I25.10 Atherosclerotic heart disease of native coronary artery without angina pectoris; I25.2 Old myocardial infarction; E78.5 Hyperlipidemia, unspecified; D64.9 Anemia, unspecified; J45.909 Unspecified asthma, uncomplicated; G43.909 Migraine, unspecified, not intractable, without status migrainosus; R41.82 Altered mental status, unspecified; Y90.2 Blood alcohol level of 40-59 mg/100 ml
CPT/HCPCS: 36415; 70450-TC; 71045-TC-FY; 71046-TC-FY; 80053; 80307; 81003; 82553; 82803; 82962; 83930; 84439; 84443; 84484; 85025; 85610; 85730; 87086; 93005; 93010; 99291; C9803; U0003; U0005

== ENCOUNTER 2022-04-10 20:51 | Observation (INO) | payer OTHER ==
[2022-04-10 23:33] LABS: EOS % 3.5 % (0-4.5); HEMATOCRIT 40.1 % (32.4-45.2); HEMOGLOBIN 13.1 GM/dL (10.7-15.3); LYMPH % 34.9 % (8-40); MCH 28.5 pg (25.7-33.7); MCHC 32.7 g/dl (32.0-36.0); MEAN CELL VOLUME 87.2 fl (80-96); MEAN PLT VOLUME 9.5 fl (7.5-11.1); MONO % 7.2 % (3.8-10.2); NEUT % 53.4 % (42.8-82.8); PLATELET COUNT 260 10^3/uL (134-434); RDW 14.7 % (11.6-15.6); WHITE BLOOD COUNT 7.9 K/mm3 (4.0-10.0)
[2022-04-10 23:53] LABS: CHLORIDE 108 mmol/L (98-107); SODIUM 141 mmol/L (136-145)
[2022-04-10 23:55] LABS: CALCIUM 9.6 mg/dL (8.5-10.1)
[2022-04-10 23:56] LABS: ALBUMIN 4.2 g/dl (3.4-5.0); ANION GAP 8 MMOL/L (8-16); BLOOD UREA NITROGEN 24.9 mg/dL (7-18); CO2 26 mmol/L (21-32); GLUCOSE,RANDOM 114 mg/dL (74-106)
[2022-04-10 23:59] LABS: CREATININE 1.2 mg/dL (0.55-1.3); SGOT/AST 19 U/L (15-37); SGPT/ALT 40 U/L (13-61)
[2022-04-11] LABS: BILIRUBIN,TOTAL 0.5 mg/dL (0.2-1); TOT PROT 8.4 g/dl (6.4-8.2)
[2022-04-11 00:01] LABS: ALK PHOS 85 U/L (45-117)
[2022-04-11 00:04] LABS: N-TERMINAL BNP 266.5 pg/ml (5-125)
[2022-04-11] MEDS ORDERED: ASPIRIN 81 MG CHEWABLE TABLETS PO ONE (00:28)
[2022-04-11] MEDS ORDERED: ASPIRIN 81 MG CHEWABLE TABLETS ONE ×2 (00:53→08:53)
[2022-04-11] MEDS ORDERED: FUROSEMIDE 40 MG/4 ML INJECTABLE VIAL IVPUSH ONE (03:51)
[2022-04-11] MEDS ORDERED: FUROSEMIDE 40 MG/4 ML INJECTABLE VIAL ONE (04:01)
[2022-04-11] MEDS ORDERED: ACETAMINOPHEN 325 MG TABLET (FP) PO PRN (05:43)
[2022-04-11] MEDS ORDERED: NITROGLYCERIN SUBLINGUAL 1/150 0.4 MG TAB SL PRN (05:53)
[2022-04-11] MEDS ORDERED: PRAMIPEXOLE DIHYDROCHLORIDE 1 MG TABLET PO SCH (06:00)
[2022-04-11] MEDS ORDERED: LEVOTHYROXINE NA 50 MCG TABLET (FP) ONE (06:51)
[2022-04-11] MEDS: LEVOTHYROXINE NA 150 MCG TABLET PO SCH (07:00)
[2022-04-11] MEDS ORDERED: metoPROLOL SUCCINATE 25 MG TAB.SR.24H (FP) PO ONE (08:53)
[2022-04-11] MEDS ORDERED: FUROSEMIDE 40 MG TABLET (FP) ONE (08:53)
[2022-04-11] MEDS ORDERED: TICAGRELOR 90 MG TABLET PO ONE (08:53)
[2022-04-11] MEDS ORDERED: ATORVASTATIN CA 40 MG TABLET (FP) ONE (08:53)
[2022-04-11] MEDS ORDERED: TOPIRAMATE 25 MG TABLET ONE (08:54)
[2022-04-11] MEDS ORDERED: ENOXAPARIN NA (PORCINE) 40 MG/0.4 ML DISP.SYRIN SQ ONE (08:55)
[2022-04-11] MEDS: ASPIRIN 81 MG CHEWABLE TABLETS PO SCH (09:09)
[2022-04-11] MEDS: ATORVASTATIN CA 80 MG TABLET (FP) PO SCH (09:10)
[2022-04-11] MEDS: TICAGRELOR 90 MG TABLET PO SCH ×2 (09:10→21:44)
[2022-04-11] MEDS: FUROSEMIDE 40 MG TABLET (FP) PO SCH (09:10)
[2022-04-11] MEDS: SACUBITRIL/VALSARTAN 24 MG-26 MG TABLET PO SCH ×2 (09:10→21:44)
[2022-04-11] MEDS: TOPIRAMATE 25 MG TABLET PO SCH ×2 (09:10→21:44)
[2022-04-11] MEDS: ENOXAPARIN NA (PORCINE) 40 MG/0.4 ML DISP.SYRIN SQ SCH (09:10)
[2022-04-11] MEDS: metoPROLOL SUCCINATE 25 MG TAB.SR.24H (FP) PO SCH (09:10)
[2022-04-11] MEDS ORDERED: MONTELUKAST NA 10 MG TABLET PO SCH (22:00)
[2022-04-12 01:15] VITALS: BMI 32.3
[2022-04-12] MEDS: LEVOTHYROXINE NA 150 MCG TABLET PO SCH (07:27)
[2022-04-12 07:45] LABS: CALCIUM 9.5 mg/dL (8.5-10.1)
[2022-04-12 07:46] LABS: BLOOD UREA NITROGEN 36.4 mg/dL (7-18)
[2022-04-12 07:49] LABS: CREATININE 1.3 mg/dL (0.55-1.3)
[2022-04-12] MEDS ORDERED: PRAMIPEXOLE DIHYDROCHLORIDE 1 MG TABLET PO SCH ×2 (10:00→22:00)
[2022-04-12] MEDS ORDERED: TICAGRELOR 60 MG TABLET PO SCH (10:00)
[2022-04-12] MEDS: ENOXAPARIN NA (PORCINE) 40 MG/0.4 ML DISP.SYRIN SQ SCH (10:24)
[2022-04-12] MEDS: TOPIRAMATE 25 MG TABLET PO SCH (10:24)
[2022-04-12] MEDS: ATORVASTATIN CA 80 MG TABLET (FP) PO SCH (10:24)
[2022-04-12] MEDS: SACUBITRIL/VALSARTAN 24 MG-26 MG TABLET PO SCH (10:27)
[2022-04-12] MEDS: metoPROLOL SUCCINATE 25 MG TAB.SR.24H (FP) PO SCH (10:27)
[2022-04-12] MEDS: FUROSEMIDE 40 MG TABLET (FP) PO SCH (10:27)
[2022-04-12] MEDS: ASPIRIN 81 MG CHEWABLE TABLETS PO SCH (10:28)
[2022-04-12] MEDS ORDERED: LEVOTHYROXINE NA 150 MCG TABLET PO SCH (11:35)
[2022-04-12 14:54] VITALS: BP 93/47; PULSE 62; TEMP 98.5
[2022-04-12] MEDS ORDERED: PRAMIPEXOLE DIHYDROCHLORIDE 1.5 MG TABLET PO SCH (22:00)
[2022-04-13] MEDS ORDERED: LEVOTHYROXINE 100 MCG, LEVOTHYROXINE 75 MCG PO SCH (07:00)
== END 2022-04-12 19:18 | disposition home or self-care (01) ==
LOC: JER 20:51 → JERBED 04-11 01:39 → J4W 04-11 18:20
PROVIDERS: ADMIT Hospitalist; ATTEND Internal Medicine
PROC: 3E023GC Introduction of Other Therapeutic Substance into Muscle, Percutaneous Approach (ICD-10-PCS; principal; 2022-04-11)
PROC: 3E033GC Introduction of Other Therapeutic Substance into Peripheral Vein, Percutaneous Approach (ICD-10-PCS; 2022-04-11)
DX: I25.10 Atherosclerotic heart disease of native coronary artery without angina pectoris (principal); E03.9 Hypothyroidism, unspecified; I11.0 Hypertensive heart disease with heart failure; E78.5 Hyperlipidemia, unspecified; G47.33 Obstructive sleep apnea (adult) (pediatric); Z99.81 Dependence on supplemental oxygen; Z09 Encounter for follow-up examination after completed treatment for conditions other than malignant neoplasm; Z95.1 Presence of aortocoronary bypass graft; G25.81 Restless legs syndrome; J45.909 Unspecified asthma, uncomplicated; E66.8 Other obesity; Z68.32 Body mass index [BMI] 32.0-32.9, adult; Z29.8 Encounter for other specified prophylactic measures; R50.9 Fever, unspecified; I25.2 Old myocardial infarction; R77.8 Other specified abnormalities of plasma proteins; R60.9 Edema, unspecified
CPT/HCPCS: 0241U-QW; 36415; 71046-TC-FY; 80048; 80053; 83880; 84439; 84443; 84484; 85025; 93005; 93010; 93970-TC; 96372; 96374; 99285-25; G0378

== ENCOUNTER 2022-07-20 11:56 | Emergency (ER) | payer OTHER ==
[2022-07-20 12:26] VITALS: BP 130/76; PULSE 81; RESP 18; TEMP 98.4; BMI 28.8
[2022-07-20] MEDS ORDERED: KETOROLAC TROMETHAMINE 60 MG/2 ML VIAL IM ONE (13:30)
[2022-07-20] MEDS ORDERED: KETOROLAC TROMETHAMINE 30 MG/1 ML VIAL ONE (13:33)
[2022-07-20 14:25] LABS: PH,URINE 5.5 (5.0-8.0); URINE APPEARANCE CLEAR; URINE BILIRUBIN NEGATIVE (NEGATIVE); URINE COLOR YELLOW; URINE GLUCOSE (UA) NEGATIVE (NEGATIVE); URINE KETONE NEGATIVE (NEGATIVE); URINE LEUK ESTERASE NEGATIVE (NEGATIVE); URINE NITRITE NEGATIVE (NEGATIVE); URINE PROTEIN TRACE (NEGATIVE); URINE UROBILINOGEN 0.2 mg/dL (0.2-1.0)
[2022-07-20 14:27] LABS: HCG,QUALITATIVE URINE Negative
[2022-07-20 14:41] LABS: BASO % 0.6 % (0-2.0); EOS % 2.2 % (0-4.5); HEMATOCRIT 40.1 % (32.4-45.2); HEMOGLOBIN 13.1 GM/dL (10.7-15.3); LYMPH % 29.9 % (8-40); MCH 28.6 pg (25.7-33.7); MCHC 32.8 g/dl (32.0-36.0); MEAN CELL VOLUME 87.2 fl (80-96); MEAN PLT VOLUME 9.3 fl (7.5-11.1); NEUT % 61.3 % (42.8-82.8); PLATELET COUNT 248 10^3/uL (134-434); RDW 14.5 % (11.6-15.6); WHITE BLOOD COUNT 7.7 K/mm3 (4.0-10.0)
[2022-07-20 15:02] LABS: BLOOD UREA NITROGEN 21.6 mg/dL (7-18); CALCIUM 9.6 mg/dL (8.5-10.1)
[2022-07-20 15:03] LABS: ALBUMIN 3.8 g/dl (3.4-5.0)
[2022-07-20 15:07] LABS: BILIRUBIN,TOTAL 0.5 mg/dL (0.2-1)
[2022-07-20 15:08] LABS: TOT PROT 7.6 g/dl (6.4-8.2)
[2022-07-20] MEDS ORDERED: METHOCARBAMOL 500 MG TABLET PO ONE (18:29)
[2022-07-20] MEDS ORDERED: LIDOCAINE 5% TOPICAL PATCH TP ONE (18:29)
[2022-07-20] MEDS ORDERED: ACETAMINOPHEN 325 MG TABLET (FP) PO ONE (18:29)
[2022-07-20] MEDS ORDERED: LIDOCAINE 5% TOPICAL PATCH ONE (19:06)
[2022-07-20] MEDS ORDERED: ACETAMINOPHEN 500 MG TABLET (FP) ONE (19:06)
[2022-07-20] MEDS ORDERED: METHOCARBAMOL 500 MG TABLET ONE (19:06)
[2022-07-20] MEDS ORDERED: LIDOCAINE PATCH REMOVAL MC SCH (22:00)
== END 2022-07-20 21:36 | disposition home or self-care (01) ==
LOC: JER 11:56 → JERFT 11:56
PROC: 3E0233Z Introduction of Anti-inflammatory into Muscle, Percutaneous Approach (ICD-10-PCS; principal; 2022-07-20)
DX: M54.50 Low back pain, unspecified (principal)
CPT/HCPCS: 36415; 74176-TC; 80053; 81003; 84703; 85025; 87086; 96372; 99283-25

== ENCOUNTER 2022-07-22 13:44 | Emergency (ER) | payer OTHER ==
[2022-07-22 13:50] VITALS: TEMP 97.7; BMI 28.6
[2022-07-22] MEDS ORDERED: ACETAMINOPHEN 1000 MG/100 ML BAG IVPB ONE (14:19)
[2022-07-22] MEDS ORDERED: SODIUM CHLORIDE 1,000 ML IV STA (14:19)
[2022-07-22] MEDS ORDERED: ACETAMINOPHEN INJECTION 100 ML IVPB ONE (14:35)
[2022-07-22 14:58] LABS: BASO % 0.7 % (0-2.0); EOS % 2.4 % (0-4.5); HEMATOCRIT 39.8 % (32.4-45.2); HEMOGLOBIN 12.6 GM/dL (10.7-15.3); LYMPH % 32.1 % (8-40); MCH 27.5 pg (25.7-33.7); MCHC 31.6 g/dl (32.0-36.0); MEAN PLT VOLUME 9.6 fl (7.5-11.1); MONO % 7.3 % (3.8-10.2); NEUT % 57.5 % (42.8-82.8); PLATELET COUNT 285 10^3/uL (134-434); RBC 4.58 M/mm3 (3.60-5.2); RDW 14.5 % (11.6-15.6); WHITE BLOOD COUNT 7.8 K/mm3 (4.0-10.0)
[2022-07-22 15:04] LABS: EPI CELLS 6 /uL (0-25.1); HCG,QUALITATIVE URINE Negative; HYALINE CASTS 1 /uL (0-3.1); URINE APPEARANCE CLEAR; URINE BACTERIA 52 /uL (0-1359); URINE BILIRUBIN NEGATIVE (NEGATIVE); URINE COLOR YELLOW; URINE GLUCOSE (UA) NEGATIVE (NEGATIVE); URINE KETONE NEGATIVE (NEGATIVE); URINE LEUK ESTERASE TRACE (NEGATIVE); URINE NITRITE NEGATIVE (NEGATIVE); URINE PROTEIN NEGATIVE (NEGATIVE); URINE RBC 8 /uL (0-23.9); URINE UROBILINOGEN 0.2 mg/dL (0.2-1.0); URINE WBC 20 /uL (0-25.8)
[2022-07-22 15:10] LABS: CALCIUM 9.9 mg/dL (8.5-10.1)
[2022-07-22 15:12] LABS: ALBUMIN 3.6 g/dl (3.4-5.0); BLOOD UREA NITROGEN 22.1 mg/dL (7-18)
[2022-07-22 15:14] LABS: CREATININE 1.2 mg/dL (0.55-1.3)
[2022-07-22 15:15] LABS: BILIRUBIN,TOTAL 0.4 mg/dL (0.2-1); TOT PROT 7.2 g/dl (6.4-8.2)
[2022-07-22 18:29] VITALS: BP 118/75; PULSE 62; RESP 16
== END 2022-07-22 18:30 | disposition home or self-care (01) ==
LOC: JER 13:44
PROC: 3E0333Z Introduction of Anti-inflammatory into Peripheral Vein, Percutaneous Approach (ICD-10-PCS; principal; 2022-07-22)
DX: R10.9 Unspecified abdominal pain (principal); M62.830 Muscle spasm of back
CPT/HCPCS: 36415; 74177-TC; 76775-TC; 76830-TC; 80053; 81003; 82150; 83690; 84703; 85025; 87086; 99284-25; Q9967

== ENCOUNTER 2022-08-18 02:09 | Inpatient (IN) | payer OTHER ==
[2022-08-18 02:26] VITALS: BMI 30.9
[2022-08-18] MEDS ORDERED: FAMOTIDINE 20 MG/50 ML IVPB 20 MG/50 ML MG IVPB ONE ×2 (05:15→05:24)
[2022-08-18] MEDS ORDERED: MAG HYDROX/AL HYDROX/SIMETH 30 ML UNIT-DOSE CUP PO ONE (05:15)
[2022-08-18] MEDS ORDERED: MAG HYDROX/AL HYDROX/SIMETH 30 ML UNIT-DOSE CUP ONE (05:24)
[2022-08-18 05:56] LABS: BASO % 1.3 % (0-2.0); EOS % 2.1 % (0-4.5); HEMATOCRIT 39.2 % (32.4-45.2); HEMOGLOBIN 12.6 GM/dL (10.7-15.3); LYMPH % 25.2 % (8-40); MCH 27.7 pg (25.7-33.7); MCHC 32.1 g/dl (32.0-36.0); MEAN CELL VOLUME 86.5 fl (80-96); MEAN PLT VOLUME 9.4 fl (7.5-11.1); MONO % 4.6 % (3.8-10.2); NEUT % 66.8 % (42.8-82.8); PLATELET COUNT 278 10^3/uL (134-434); RBC 4.54 M/mm3 (3.60-5.2); RDW 14.7 % (11.6-15.6); WHITE BLOOD COUNT 8.2 K/mm3 (4.0-10.0)
[2022-08-18 06:23] LABS: LIPASE 393 U/L (73-393)
[2022-08-18 06:43] LABS: EPI CELLS >36 /uL (0-25.1); HYALINE CASTS 0 /uL (0-3.1); URINE BACTERIA 6436 /uL (0-1359); URINE RBC 8 /uL (0-23.9); URINE WBC 126 /uL (0-25.8)
[2022-08-18] MEDS ORDERED: ASPIRIN 81 MG CHEWABLE TABLETS PO ONE (08:45)
[2022-08-18] MEDS ORDERED: ASPIRIN 81 MG CHEWABLE TABLETS ONE (09:16)
[2022-08-18 09:37] LABS: URINE APPEARANCE Clear; URINE BILIRUBIN Negative (NEGATIVE); URINE COLOR Yellow; URINE GLUCOSE (UA) Negative (NEGATIVE); URINE KETONE Negative (NEGATIVE); URINE LEUK ESTERASE Negative (NEGATIVE); URINE NITRITE Negative (NEGATIVE); URINE PROTEIN Negative (NEGATIVE); URINE UROBILINOGEN 0.2 mg/dL (0.2-1.0)
[2022-08-18] MEDS ORDERED: NITROGLYCERIN SUBLINGUAL 1/150 0.4 MG TAB SL PRN (16:13)
[2022-08-18 20:26] VITALS: TEMP 98.4
[2022-08-18] MEDS ORDERED: MONTELUKAST NA 10 MG TABLET PO SCH (22:00)
[2022-08-19] MEDS: TICAGRELOR 60 MG TABLET PO SCH ×3 (02:05→10:58)
[2022-08-19] MEDS: TOPIRAMATE 25 MG TABLET PO SCH ×2 (02:05→10:58)
[2022-08-19] MEDS: METHOCARBAMOL 500 MG TABLET PO SCH ×2 (02:05→10:58)
[2022-08-19] MEDS: SACUBITRIL/VALSARTAN 24 MG-26 MG TABLET PO SCH ×2 (02:05→10:58)
[2022-08-19] MEDS ORDERED: METHOCARBAMOL 500 MG TABLET ONE ×2 (02:10→10:37)
[2022-08-19] MEDS ORDERED: MONTELUKAST NA 10 MG TABLET ONE (02:14)
[2022-08-19] MEDS ORDERED: TOPIRAMATE 25 MG TABLET ONE ×2 (02:14→10:46)
[2022-08-19 02:23] VITALS: BP 130/91; PULSE 66; RESP 14
[2022-08-19] MEDS ORDERED: LEVOTHYROXINE 100 MCG, LEVOTHYROXINE 75 MCG PO SCH (07:00)
[2022-08-19] MEDS ORDERED: LEVOTHYROXINE NA 75 MCG TABLET (FP) PO SCH (07:00)
[2022-08-19 07:41] LABS: CHLORIDE 112 mmol/L (98-107); SODIUM 143 mmol/L (136-145)
[2022-08-19 07:45] LABS: ALBUMIN 3.3 g/dl (3.4-5.0); ANION GAP 5 MMOL/L (8-16); BLOOD UREA NITROGEN 22.6 mg/dL (7-18); CO2 25 mmol/L (21-32); GLUCOSE,RANDOM 90 mg/dL (74-106)
[2022-08-19 07:48] LABS: CHOLESTEROL 115 mg/dL (50-200); CREATININE 1.2 mg/dL (0.55-1.3); SGOT/AST 7 U/L (15-37); SGPT/ALT 16 U/L (13-61)
[2022-08-19 07:49] LABS: LDL CHOLESTEROL (ONLY SJRH) 61 mg/dL (5-100); TOT PROT 6.4 g/dl (6.4-8.2); TRIGLYCERIDES 139 mg/dL (0-150)
[2022-08-19 07:50] LABS: BILIRUBIN,TOTAL 0.4 mg/dL (0.2-1); HDL CHOLESTEROL 40 mg/dL (40-60)
[2022-08-19 07:52] LABS: ALK PHOS 79 U/L (45-117)
[2022-08-19] MEDS ORDERED: LEVOTHYROXINE NA 25 MCG TABLET (FP) ONE (08:19)
[2022-08-19] MEDS ORDERED: LEVOTHYROXINE NA 75 MCG TABLET (FP) ONE (08:19)
[2022-08-19] MEDS ORDERED: FUROSEMIDE 40 MG TABLET (FP) PO SCH (10:00)
[2022-08-19] MEDS ORDERED: PRAMIPEXOLE DIHYDROCHLORIDE 1 MG TABLET PO SCH (10:00)
[2022-08-19] MEDS ORDERED: PANTOPRAZOLE 20 MG TABLET PO SCH (10:00)
[2022-08-19] MEDS ORDERED: metoPROLOL SUCCINATE 25 MG TAB.SR.24H (FP) PO SCH (10:00)
[2022-08-19] MEDS ORDERED: ATORVASTATIN CA 80 MG TABLET (FP) PO SCH (10:00)
[2022-08-19] MEDS ORDERED: ATORVASTATIN CA 80 MG TABLET (FP) ONE (10:38)
[2022-08-19] MEDS ORDERED: PANTOPRAZOLE 20 MG TABLET PO ONE (10:38)
[2022-08-19] MEDS ORDERED: PRAMIPEXOLE DIHYDROCHLORIDE 0.5 MG TABLET PO SCH (11:05)
== END 2022-08-19 15:01 | disposition home or self-care (01) | DRG 243 ==
LOC: JER 02:09 → JERBED 11:24
PROVIDERS: ADMIT Internal Medicine; ATTEND Internal Medicine
DX: K21.9 Gastro-esophageal reflux disease without esophagitis (principal); E78.5 Hyperlipidemia, unspecified; E03.9 Hypothyroidism, unspecified; I24.8 Other forms of acute ischemic heart disease; I25.119 Atherosclerotic heart disease of native coronary artery with unspecified angina pectoris; I25.5 Ischemic cardiomyopathy; G43.909 Migraine, unspecified, not intractable, without status migrainosus; G47.33 Obstructive sleep apnea (adult) (pediatric); R10.13 Epigastric pain; R77.8 Other specified abnormalities of plasma proteins; I13.0 Hypertensive heart and chronic kidney disease with heart failure and stage 1 through stage 4 chronic kidney disease, or unspecified chronic kidney disease; E11.22 Type 2 diabetes mellitus with diabetic chronic kidney disease; N18.32 Chronic kidney disease, stage 3b; I50.9 Heart failure, unspecified; Z95.5 Presence of coronary angioplasty implant and graft
CPT/HCPCS: 36415; 71045-TC-FY; 74177-TC; 80053; 80061; 81003; 82550; 83690; 84443; 84484; 85025; 93005; 93010; 99285-25; C9803-CS; Q9967; U0003; U0005

== ENCOUNTER 2023-05-14 04:21 | Day surgery (SDC) | payer OTHER ==
[2023-05-10 13:20] VITALS: BMI 30.2
[2023-05-14 09:56] VITALS: TEMP 98.6
[2023-05-14 11:46] VITALS: RESP 18
[2023-05-14 12:16] VITALS: BP 110/70; PULSE 63
== END 2023-05-14 11:00 | disposition home or self-care (01) ==
LOC: JASU-ENDO 04:21
PROVIDERS: ATTEND Internal Medicine Gastroenterology
PROC: 0DJD8ZZ Inspection of Lower Intestinal Tract, Via Natural or Artificial Opening Endoscopic (ICD-10-PCS; principal; 2023-05-14 09:15)
DX: Z12.11 Encounter for screening for malignant neoplasm of colon (principal); Z80.0 Family history of malignant neoplasm of digestive organs; K64.8 Other hemorrhoids
CPT/HCPCS: 82962; 88305-TC; 88342-TC

== ENCOUNTER 2023-06-25 12:51 | Emergency (ER) | payer OTHER ==
[2023-06-25 13:04] VITALS: RESP 19; BMI 30.7
[2023-06-25] MEDS ORDERED: SODIUM CHLORIDE 1,000 ML IV ONE ×2 (13:37→16:50)
[2023-06-25] MEDS ORDERED: ACETAMINOPHEN 1000 MG/100 ML BAG IVPB ONE (13:37)
[2023-06-25] MEDS ORDERED: ACETAMINOPHEN INJECTION 100 ML IVPB ONE (13:43)
[2023-06-25 14:40] LABS: PH,URINE 5.5 (5.0-8.0); URINE APPEARANCE CLEAR; URINE BILIRUBIN NEGATIVE (NEGATIVE); URINE COLOR YELLOW; URINE GLUCOSE (UA) NEGATIVE (NEGATIVE); URINE KETONE NEGATIVE (NEGATIVE); URINE LEUK ESTERASE NEGATIVE (NEGATIVE); URINE NITRITE NEGATIVE (NEGATIVE); URINE PROTEIN NEGATIVE (NEGATIVE); URINE UROBILINOGEN 0.2 mg/dL (0.2-1.0)
[2023-06-25 14:43] LABS: BASO % 0.4 % (0-2.0); EOS % 1.5 % (0-4.5); HEMATOCRIT 40.1 % (32.4-45.2); LYMPH % 9.7 % (8-40); MCH 27.5 pg (25.7-33.7); MCHC 32.3 g/dl (32.0-36.0); MEAN PLT VOLUME 9.4 fl (7.5-11.1); MONO % 5.7 % (3.8-10.2); NEUT % 82.7 % (42.8-82.8); PLATELET COUNT 263 10^3/uL (134-434); RBC 4.72 M/mm3 (3.60-5.2); WHITE BLOOD COUNT 12.8 K/mm3 (4.0-10.0)
[2023-06-25 14:55] LABS: POTASSIUM 4.6 mmol/L (3.5-5.1)
[2023-06-25 14:57] LABS: CALCIUM 9.7 mg/dL (8.5-10.1)
[2023-06-25 14:58] LABS: BLOOD UREA NITROGEN 22.6 mg/dL (7-18)
[2023-06-25 15:01] LABS: CREATININE 1.3 mg/dL (0.55-1.3)
[2023-06-25 15:02] LABS: BILIRUBIN,TOTAL 0.5 mg/dL (0.2-1)
[2023-06-25 15:03] LABS: TOT PROT 7.7 g/dl (6.4-8.2)
[2023-06-25 16:35] VITALS: TEMP 98.8
[2023-06-25 18:25] VITALS: PULSE 75
[2023-06-25] MEDS ORDERED: SODIUM CHLORIDE 500 ML IV STA (18:31)
[2023-06-25 19:23] VITALS: BP 96/67
== END 2023-06-25 19:33 | disposition home or self-care (01) ==
LOC: JERFT 12:51
PROC: 3E033NZ Introduction of Analgesics, Hypnotics, Sedatives into Peripheral Vein, Percutaneous Approach (ICD-10-PCS; principal; 2023-06-25)
PROC: 3E0337Z Introduction of Electrolytic and Water Balance Substance into Peripheral Vein, Percutaneous Approach (ICD-10-PCS; 2023-06-25)
PROC: 3E0337Z Introduction of Electrolytic and Water Balance Substance into Peripheral Vein, Percutaneous Approach (ICD-10-PCS; 2023-06-25)
PROC: 3E0337Z Introduction of Electrolytic and Water Balance Substance into Peripheral Vein, Percutaneous Approach (ICD-10-PCS; 2023-06-25)
DX: M79.10 Myalgia, unspecified site (principal); R19.7 Diarrhea, unspecified; R68.83 Chills (without fever); R10.9 Unspecified abdominal pain; Z20.822 Contact with and (suspected) exposure to COVID-19
CPT/HCPCS: 0241U-QW; 36415; 80053; 81003; 85025; 96361; 96365; 99284-25

== ENCOUNTER 2024-03-12 05:54 | Emergency (ER) | payer OTHER ==
[2024-03-12 06:00] VITALS: TEMP 97.9; BMI 33.3
[2024-03-12] MEDS: SODIUM CHLORIDE 1,000 ML IV STA (08:00)
[2024-03-12] MEDS: ACETAMINOPHEN 1000 MG/100 ML BAG IVPB ONE (08:00)
[2024-03-12] MEDS ORDERED: ACETAMINOPHEN INJECTION 100 ML IVPB ONE (08:04)
[2024-03-12 09:10] LABS: BASO % 0.7 % (0-2.0); EOS % 2.8 % (0-4.5); HEMATOCRIT 37.5 % (32.4-45.2); HEMOGLOBIN 12.4 GM/dL (10.7-15.3); LYMPH % 25.2 % (8-40); MCH 28.2 pg (25.7-33.7); MCHC 33.1 g/dl (32.0-36.0); MEAN CELL VOLUME 85.1 fl (80-96); MEAN PLT VOLUME 9.1 fl (7.5-11.1); MONO % 11.3 % (3.8-10.2); PLATELET COUNT 221 10^3/uL (134-434); RBC 4.41 M/mm3 (3.60-5.2); RDW 15.7 % (11.6-15.6); WHITE BLOOD COUNT 8.3 K/mm3 (4.0-10.0)
[2024-03-12 09:11] LABS: PH,URINE 5.5 (5.0-8.0); URINE APPEARANCE CLEAR; URINE BILIRUBIN NEGATIVE (NEGATIVE); URINE COLOR YELLOW; URINE GLUCOSE (UA) NEGATIVE (NEGATIVE); URINE KETONE NEGATIVE (NEGATIVE); URINE LEUK ESTERASE NEGATIVE (NEGATIVE); URINE NITRITE NEGATIVE (NEGATIVE); URINE PROTEIN NEGATIVE (NEGATIVE); URINE UROBILINOGEN 0.2 mg/dL (0.2-1.0)
[2024-03-12 09:45] LABS: POTASSIUM 4.2 mmol/L (3.5-5.1)
[2024-03-12 09:47] LABS: ALBUMIN 3.6 g/dl (3.4-5.0); BLOOD UREA NITROGEN 20.6 mg/dL (7-18); CALCIUM 9.2 mg/dL (8.5-10.1)
[2024-03-12 09:51] LABS: BILIRUBIN,TOTAL 0.5 mg/dL (0.2-1); CREATININE 1.3 mg/dL (0.55-1.3); TOT PROT 7.5 g/dl (6.4-8.2)
[2024-03-12 10:55] VITALS: RESP 20
[2024-03-12] MEDS ORDERED: AMOX TR/POT CLAV 875MG/125MG TABLETS (FP) ONE (15:54)
[2024-03-12 15:56] VITALS: BP 116/68; PULSE 104
[2024-03-12] MEDS: AMOX TR/POT CLAV 875MG/125MG TABLETS (FP) PO ONE (16:15)
== END 2024-03-12 16:15 | disposition home or self-care (01) ==
LOC: JER 05:54
PROC: 3E033NZ Introduction of Analgesics, Hypnotics, Sedatives into Peripheral Vein, Percutaneous Approach (ICD-10-PCS; principal; 2024-03-12)
PROC: 3E0337Z Introduction of Electrolytic and Water Balance Substance into Peripheral Vein, Percutaneous Approach (ICD-10-PCS; 2024-03-12)
DX: R50.9 Fever, unspecified (principal); R53.1 Weakness; U07.1 COVID-19; K52.9 Noninfective gastroenteritis and colitis, unspecified
CPT/HCPCS: 0241U-QW; 36415; 71045-TC-FY; 74177-TC; 80053; 81003; 83690; 85025; 87045; 87046; 87086; 87186; 87209; 99285-25; J0131

== ENCOUNTER 2024-09-08 09:06 | Emergency (ER) | payer OTHER ==
[2024-09-08 09:20] VITALS: BP 122/78; PULSE 68; RESP 18; TEMP 97.5; BMI 34.4
[2024-09-08] MEDS ORDERED: ACETAMINOPHEN 325 MG TABLET (FP) ONE (10:14)
[2024-09-08] MEDS: ACETAMINOPHEN 500 MG TABLET (FP) PO ONE (10:16)
[2024-09-08] MEDS ORDERED: KETOROLAC TROMETHAMINE 30 MG/1 ML VIAL IM ONE (11:45)
[2024-09-08] MEDS: KETOROLAC TROMETHAMINE 30 MG/1 ML VIAL IM ONE (12:02)
== END 2024-09-08 12:02 | disposition home or self-care (01) ==
LOC: JER 09:06 → JERFT 09:06
PROC: 3E0133Z Introduction of Anti-inflammatory into Subcutaneous Tissue, Percutaneous Approach (ICD-10-PCS; principal; 2024-09-08)
DX: M25.571 Pain in right ankle and joints of right foot (principal)
CPT/HCPCS: 73630-TC-RT-FY; 96372; 99284-25

== ENCOUNTER 2024-12-08 19:09 | Emergency (ER) | payer OTHER ==
[2024-12-08 19:15] VITALS: BMI 32.9
[2024-12-08] MEDS ORDERED: ACETAMINOPHEN 325 MG TABLET (FP) PO ONE (20:00)
[2024-12-08] MEDS ORDERED: BENZONATATE 200 MG CAPSULE PO ONE (20:23)
[2024-12-08] MEDS ORDERED: KETOROLAC TROMETHAMINE 15 MG/ML VIAL ONE (20:24)
[2024-12-08] MEDS: KETOROLAC TROMETHAMINE 15 MG/ML VIAL IM ONE (20:30)
[2024-12-08] MEDS: BENZONATATE 200 MG CAPSULE PO ONE (20:31)
[2024-12-08 21:33] VITALS: BP 99/60; PULSE 74; RESP 18; TEMP 99.5
== END 2024-12-08 21:36 | disposition home or self-care (01) ==
LOC: JER 19:09
PROC: 3E0233Z Introduction of Anti-inflammatory into Muscle, Percutaneous Approach (ICD-10-PCS; principal; 2024-12-08)
DX: H92.01 Otalgia, right ear (principal); R05.9 Cough, unspecified; R09.81 Nasal congestion; R50.9 Fever, unspecified; Z20.822 Contact with and (suspected) exposure to COVID-19
CPT/HCPCS: 0241U-QW; 96372; 99284-25